=== PATIENT | female | born 1940 | race Caucasian/White ===

== ENCOUNTER 2016-12-26 13:06 | Inpatient (IN) ==
[2016-12-26] MEDS ORDERED: *HR* Morphine 2 MG/ML SYRINGE IVP ONE ×2 (13:14→15:54)
[2016-12-26] MEDS ORDERED: Ondansetron 4 MG/2 ML VIAL IVP ONE ×2 (13:14→15:54)
--- NOTE | 2016-12-26 13:16 | Emergency Department Note ---
Disposition Clinical Impression: Dislocation of right ankle joint Qualifiers: Encounter type: initial encounter Qualified Code(s): S93.04XA - Dislocation of right ankle joint, initial encounter Closed right fibular fracture Qualifiers: Encounter type: initial encounter Fibula location: shaft Fracture morphology: other fracture Qualified Code(s): S82.491A - Other fracture of shaft of right fibula, initial encounter for closed fracture Disposition: Admitted As Inpatient Referrals: Sander Bennett Jr, MD [Non-Partnered Physician] - Forms: ED Satisfaction Letter Extremity Problem HPI - General Chief complaint: ED Fall Stated complaint: Fall Time Seen by Provider: 12/26/16 13:13 Source: patient Mode of arrival: EMS Limitations: no limitations Nursing Notes Reviewed: Yes Vital Signs Reviewed: Yes - History of Present Illness Pt Subjective Complaint: extremity pain, extremity swelling Onset (ago): 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 Consistency: constant Injury Location: right, lower extremity Pain Scale: 10 Quality: dull Radiation: none Improves with: nothing Worsens with: palpation Associated symptoms: Reports: denies other symptoms Context: other (Patient was stepping off a horse and slipped and fell on her right ankle) - Related Data Home Medications Medication Instructions Recorded Confirmed Albuterol Sulfate [Albuterol 1 puff IH Q6HR PRN 06/13/15 10/17/16 Inhaler] Alprazolam [Xanax] 0.5 mg PO HS 06/13/15 10/17/16 Cholecalciferol (Vitamin D3) 2,000 unit PO DAILY 06/13/15 10/17/16 [Vitamin D3] Clopidogrel [Plavix] 75 mg PO DAILY 06/13/15 10/17/16 Dexlansoprazole [Dexilant] 60 mg PO DAILY 06/13/15 10/17/16 Duloxetine [Cymbalta] 60 mg PO DAILY 06/13/15 10/17/16 Folic Acid 1 mg PO DAILY 06/13/15 10/17/16 Furosemide [Lasix] 80 mg PO DAILY 06/13/15 10/17/16 Magnesium Oxide [Mag-Ox] 400 mg PO DAILY 06/13/15 10/17/16 Montelukast [Singulair] 10 mg PO HS 06/13/15 10/17/16 Multivitamin with Minerals 1 cap PO DAILY 06/13/15 10/17/16 [Myvitalife] Potassium Chloride [Klor-Con 40 meq PO TID 06/13/15 10/17/16 Sprinkle] PredniSONE 10 mg PO DAILY 06/13/15 10/17/16 TraMADol [Ultram] 50 mg PO DAILY 06/13/15 10/17/16 TraZODone 100 mg PO HS 06/13/15 10/17/16 Ipratropium/Albuterol Neb [Duoneb] 3 ml IH Q6HR 08/15/15 10/17/16 Previous Rx's Medication Instructions Recorded Fluconazole [Diflucan] 150 mg PO ONCE #2 tab 11/28/16 Magic Mouthwash 5 ml PO Q4H PRN #240 ml 11/28/16 Nystatin [Nystatin Suspension] 1 ml PO QID #120 ml 11/28/16 Allergies Allergy/AdvReac Type Severity Reaction Status Date / Time atorvastatin [From Lipitor] Allergy Hives Verified 10/14/15 15:38 cephalexin Allergy Hives Verified 10/14/15 15:38 hydrocodone Allergy Hives Verified 10/14/15 15:38 Penicillins [PCN] Allergy Hives Verified 10/14/15 15:38 ropinirole [From Requip] Allergy Unresponsiv Verified 10/14/15 15:38 e All systems ED: reviewed and negative except as stated. Constitutional: Denies: fever, chills Respiratory: Denies: cough Past Medical History - Past Medical History Source: patient, nursing notes reviewed Medical history: Reports: arthritis, asthma, COPD, GERD, hypertension, renal disease, TIA Surgical history: Reports: appendectomy, cholecystectomy, hysterectomy, knee replacement, sinus surgery, other Psychiatric history: Reports: no psych history - Social History Smoking Status: Never smoker Smokeless Tobacco Status: No Alcohol use: Reports: none Drug use: Reports: none Physical Exam - General Limitations: no limitations General appearance: alert, in no apparent distress - Head Head exam: atraumatic, normocephalic, normal inspection - Eye Eye exam: Present: normal appearance, PERRL, EOMI - ENT ENT exam: normal exam, normal oropharynx, mucous membranes moist - Neck Neck exam: Present: normal inspection, full ROM, trachea midline - Chest Chest inspection: Present: normal inspection, symmetric chest wall rise - Respiratory Respiratory exam: Present: normal lung sounds bilaterally - Abdominal Exam Abdominal exam: Present: soft, Non-Tender. Absent: tenderness, distention, guarding, rebound, rigidity - Expanded Lower Extremity Exam Ankle exam: Present: tenderness, swelling, dislocation - Neurological Exam Neurological exam: Present: alert, oriented X3 - Psychiatric Psychiatric exam: Present: normal affect, normal mood - Skin Skin exam: Present: warm, dry, intact, normal color Course Vital Signs Temperature 97.6 F 12/26/16 13:10 Pulse Rate 68 12/26/16 13:10 Respiratory Rate 16 12/26/16 13:10 Blood Pressure 155/82 12/26/16 13:10 O2 Sat by Pulse Oximetry 95 12/26/16 13:10 Temperature 97.6 F 12/26/16 13:10 Pulse Rate 67 12/26/16 14:17 Respiratory Rate 16 12/26/16 14:17 Blood Pressure 154/80 12/26/16 14:17 O2 Sat by Pulse Oximetry 100 12/26/16 14:17 Oxygen Delivery Oxygen Delivery [1400] Nasal Cannula Oxygen Delivery Room Air
[2016-12-26] MEDS ORDERED: 0.9 % Sodium Chloride 1,000 ML IVC ONE (13:38)
[2016-12-26] MEDS ORDERED: *HR* Etomidate 20 MG/10 ML AMPUL IVP ONE (13:39)
[2016-12-26] MEDS ORDERED: Albuterol 2.5 MG/3 ML NEBULIZER ONE (14:15)
[2016-12-26] MEDS ORDERED: Albuterol 2.5 MG/3 ML NEBULIZER IH ONE (14:16)
--- NOTE | 2016-12-26 14:22 | Emergency Department Note ---
Disposition Clinical Impression: Dislocation of right ankle joint Qualifiers: Encounter type: initial encounter Qualified Code(s): S93.04XA - Dislocation of right ankle joint, initial encounter Closed right fibular fracture Qualifiers: Encounter type: initial encounter Fibula location: shaft Fracture morphology: other fracture Qualified Code(s): S82.491A - Other fracture of shaft of right fibula, initial encounter for closed fracture Disposition: Still a Patient Referrals: Sander Bennett Jr, MD [Primary Care Provider] - Forms: ED Satisfaction Letter General Adult HPI - General Chief complaint: ED Fall Stated complaint: Fall Time Seen by Provider: 12/26/16 13:13 Source: patient Mode of arrival: EMS Limitations: no limitations Nursing Notes Reviewed: Yes Vital Signs Reviewed: Yes - History of Present Illness HPI Narrative: This note serves as a procedure note for the patient's right ankle fracture reduction and splint. Please refer to Dr. Goode' note for full visit and evaluation. Pain Scale: 10 - Related Data Home Medications Medication Instructions Recorded Confirmed Albuterol Sulfate [Albuterol 1 puff IH Q4HR PRN 06/13/15 10/17/16 Inhaler] Alprazolam [Xanax] 0.5 mg PO HS 06/13/15 10/17/16 Cholecalciferol (Vitamin D3) 2,000 unit PO DAILY 06/13/15 10/17/16 [Vitamin D3] Clopidogrel [Plavix] 75 mg PO DAILY 06/13/15 10/17/16 Dexlansoprazole [Dexilant] 60 mg PO DAILY 06/13/15 10/17/16 Duloxetine [Cymbalta] 60 mg PO DAILY 06/13/15 10/17/16 Folic Acid 1 mg PO DAILY 06/13/15 10/17/16 Furosemide [Lasix] 80 mg PO DAILY 06/13/15 10/17/16 Magnesium Oxide [Mag-Ox] 400 mg PO DAILY 06/13/15 10/17/16 Montelukast [Singulair] 10 mg PO HS 06/13/15 10/17/16 Multivitamin with Minerals 1 cap PO DAILY 06/13/15 10/17/16 [Myvitalife] Potassium Chloride [Klor-Con 40 meq PO TID 06/13/15 10/17/16 Sprinkle] PredniSONE 10 mg PO DAILY 06/13/15 10/17/16 TraMADol [Ultram] 50 mg PO DAILY 06/13/15 10/17/16 TraZODone 100 mg PO HS 06/13/15 10/17/16 Ipratropium/Albuterol Neb [Duoneb] 3 ml IH Q6HR 08/15/15 10/17/16 Previous Rx's Medication Instructions Recorded Fluconazole [Diflucan] 150 mg PO ONCE #2 tab 11/28/16 Magic Mouthwash 5 ml PO Q4H PRN #240 ml 11/28/16 Nystatin [Nystatin Suspension] 1 ml PO QID #120 ml 11/28/16 Allergies Allergy/AdvReac Type Severity Reaction Status Date / Time atorvastatin [From Lipitor] Allergy Hives Verified 10/14/15 15:38 cephalexin Allergy Hives Verified 10/14/15 15:38 hydrocodone Allergy Hives Verified 10/14/15 15:38 Penicillins [PCN] Allergy Hives Verified 10/14/15 15:38 ropinirole [From Requip] Allergy Unresponsiv Verified 10/14/15 15:38 e Constitutional: Denies: fever, chills Respiratory: Denies: cough Past Medical History - Past Medical History Medical history: Reports: arthritis, asthma, COPD, GERD, hypertension, renal disease, TIA Surgical history: Reports: appendectomy, cholecystectomy, hysterectomy, knee replacement, sinus surgery, other Psychiatric history: Reports: no psych history - Social History Smoking Status: Never smoker Smokeless Tobacco Status: No Alcohol use: Reports: none Drug use: Reports: none Physical Exam - General Limitations: no limitations General appearance: alert, in no apparent distress Course Vital Signs Temperature 97.6 F 12/26/16 13:10 Pulse Rate 68 12/26/16 13:10 Respiratory Rate 16 12/26/16 13:10 Blood Pressure 155/82 12/26/16 13:10 O2 Sat by Pulse Oximetry 95 12/26/16 13:10 Temperature 97.6 F 12/26/16 13:10 Pulse Rate 67 12/26/16 14:17 Respiratory Rate 16 12/26/16 14:17 Blood Pressure 154/80 12/26/16 14:17 O2 Sat by Pulse Oximetry 100 12/26/16 14:17 Oxygen Delivery Oxygen Delivery [] Nasal Cannula Oxygen Delivery Room Air Procedures - Orthopedic Fracture Reduction Fracture #1 Consent Obtained: written consent Time Out Performed: Yes Side: right Fracture Reduction Location: fibula ASA Classification: CLASS II-Mild systemic disease Analgesia: procedural sedation (Etomidate) Technique: direct manipulation, traction/counter-traction Post Reduction X-rays Demonstrate: anatomical reduction Post-reduction neuro exam: intact Post-reduction vascular exam: intact Splint Applied: Yes Patient Tolerated Procedure: well, no complications - Orthopedic Splinting/Casting Injury #1 Side: right Lower Extremity Injury Location: ankle Lower Extremity Immobilizer: posterior splint, stirrup splint, Gerson wrap Other Orthopedic Equipment: other (Patient admitted to medical floor.) Attestation Statement - Attestation Attestation: I personally observed Dr. Hollis perform the reduction of the right ankle. Also directly supervised the splint placement. Patient was seen and evaluated by Dr. Goode who also provided the sedation. Patient admitted for operative repair.
[2016-12-26 15:12] LABS: Calcium 8.8 mg/dL (8.6-10.8); Potassium 3.9 mEq/L (3.5-4.5)
[2016-12-26 15:27] LABS: Basophils % 0.3 %; Eosinophils # 0.2 K/mcL (0.0-0.6); Eosinophils % 1.6 %; Hematocrit 39.9 % (35.3-44.9); Hemoglobin 12.6 g/dL (11.5-15.4); Immature Granulocytes % 0.5 % (0-4); Lymphocytes # 1.2 K/mcL (0.6-4.6); Lymphocytes % 11.6 %; Mean Corpuscular HGB Conc 31.6 g/dL (31.6-35.5); Mean Corpuscular Hemoglobin 26.8 pg (28.0-33.3); Mean Corpuscular Volume 84.7 fL (83.0-100.0); Mean Platelet Volume 9.5 fL (9.4-12.4); Monocytes # 0.6 K/mcL (0.0-1.3); Monocytes % 5.3 %; Neutrophils # 8.5 K/mcL (1.6-8.9); Platelet Count 197 K/mcL (140-400); Red Blood Count 4.71 M/mcL (3.82-4.97); Red Cell Distribution Width 14.6 % (11.5-14.5); Segmented Neutrophils % 80.7 %
[2016-12-26 15:44] LABS: Prothrombin Time 10.5 Seconds (9.4-12.1)
[2016-12-26 15:46] LABS: Activated Partial Thrombo Time 28.4 Seconds (26.0-36.0)
[2016-12-26] MEDS ORDERED: Naloxone 0.4 MG/ML INJ IVP PRN (16:32)
[2016-12-26] MEDS ORDERED: Ondansetron 4 MG/2 ML VIAL IVP PRN (16:32)
--- NOTE | 2016-12-26 17:15 | Internal Med History&Physical ---
Date of Encounter: 12/26/16 Time of Encounter: 16:30 Assessment and Plan (1) Closed right fibular fracture Current visit: Yes Status: Acute 1 patient had a fall from standing x-ray revealed closed right fibular fracture. Orthopedics consulted 2 continue with pain medications-morphine 3 consult PT/OT 4 consult social economist for ECF placement 5 heparin DVT prophylaxis 6 Her functional capacity is poor. She has multiple clinical predictors including CKD, COPD. She will be moderate risk for perioperative complications because of poor functional capacity and clinical predictors. Will check 12 lead electrocardiogram. Qualifiers: Encounter type: initial encounter Fibula location: shaft Fracture morphology: other fracture Qualified Code(s): S82.491A - Other fracture of shaft of right fibula, initial encounter for closed fracture (2) Dislocation of right ankle joint Current visit: Yes Status: Acute 1 this was reduced in the ER-continue with splint 2 continue with pain medications Qualifiers: Encounter type: initial encounter Qualified Code(s): S93.04XA - Dislocation of right ankle joint, initial encounter (3) CKD (chronic kidney disease), stage III Current visit: Yes Status: Acute 1 presently creatinine stable we will continue to monitor creatinine 2 avoid nephrotoxins 3 monitor intake and output daily weights (4) COPD (chronic obstructive pulmonary disease) Current visit: Yes Status: Chronic 1 oxygen as needed titrating to maintain SPO2 greater than 92% 2 bronchodilators 3 continue with prednisone 5 mg which is maintenance dose Qualifiers: COPD type: unspecified COPD Qualified Code(s): J44.9 - Chronic obstructive pulmonary disease, unspecified (5) DVT prophylaxis Current visit: No Status: Acute 1 heparin subcutaneous Internal Medicine - H&P: HPI Chief complaint: fall Admitted From: Emergency Dept Plans for Post Hospital Care: Home History of present illness: Ms. Miller is a 76 year old female past medical history of COPD stage III TIA COPD 2 L nasal cannula oxygen obstructive sleep apnea. According to patient she was attempting to get off a horse when she stepped down and hold her right ankle. Her ankle was deformed and painful presented to the ER. X-ray right ankle revealed close right femur fracture as well as dislocation of right ankle joint. Patient was given conscious sedation in the ER right ankle was reduced. Laboratory workup was unremarkable. Orthopedics was consulted. Patient was admitted for further evaluation. Presently the patient is sleepy but arouses to verbal stimuli and answers questions appropriately. Family is at bedside. Patient states that she lives alone with her she has had frequent falls in the past recently fracturing her patella. She denies any past cardiac history she has a history of CVA on Plavix and statin. She has no neurological deficits cranial nerves II through XII are intact she follows commands. Heart sounds S1 and S2 with no rubs, clicks murmurs noted lungs sounds clear throughout all lung mederos. She is hemodynamically stable this time. Past Med Surg Social Fam HX - Past Medical History Medical history: arthritis, asthma, COPD, GERD, hypertension, renal disease, TIA Psychiatric history: no psych history - Past Surgical History Surgical History: appendectomy, cholecystectomy, hysterectomy, knee replacement , sinus surgery, other - Social History Smoking Status: Never smoker Smokeless Tobacco Status: No Alcohol use: none Drug use: none - Family History Mother Adopted: No Family Member Ethnicity: Non- Living Status: Hx Family Cardiac Disorders: Yes Internal Medicine - H&P: Meds Albuterol Sulfate [Albuterol Inhaler] 2 puff IH Q4HR PRN 06/13/15 [History] Alprazolam [Xanax] 2 mg PO HS 06/13/15 [History] Cholecalciferol (Vitamin D3) [Vitamin D3] 2,000 unit PO DAILY 06/13/15 [History] Clopidogrel [Plavix] 75 mg PO DAILY 06/13/15 [History] Dexlansoprazole [Dexilant] 60 mg PO DAILY 06/13/15 [History] Duloxetine [Cymbalta] 60 mg PO DAILY 06/13/15 [History] Folic Acid 1 mg PO DAILY 06/13/15 [History] Furosemide [Lasix] 80 mg PO DAILY 06/13/15 [History] Magnesium Oxide [Mag-Ox] 400 mg PO BID 06/13/15 [History] Potassium Chloride [Klor-Con Sprinkle] 40 meq PO TID 06/13/15 [History] TraMADol [Ultram] 50 mg PO Q6H PRN 06/13/15 [History] TraZODone 50 mg PO HS 06/13/15 [History] Diclofenac Sodium [Voltaren] 1 appl TP QID PRN 12/26/16 [History] Mometasone Furoate [Nasonex] 2 spray NS DAILY 12/26/16 [History] Mometasone/Formoterol [Dulera 200 Mcg/5 Mcg Inhaler] 2 puff IH BID 12/26/16 [ History] Oxygen 2 l NS AD 12/26/16 [History] Tiotropium [Spiriva] 18 mcg IH 0700 12/26/16 [History] predniSONE [PredniSONE] 5 mg PO DAILY 12/26/16 [History] Allergies atorvastatin [From Lipitor] Allergy (Verified 10/14/15 15:38) Hives cephalexin Allergy (Verified 10/14/15 15:38) Hives hydrocodone Allergy (Verified 10/14/15 15:38) Hives Penicillins [PCN] Allergy (Verified 10/14/15 15:38) Hives ropinirole [From Requip] Allergy (Verified 10/14/15 15:38) Unresponsive All Systems PM: A 10-system review of systems was performed and is negative for pertinent findings except as documented above in the HPI. - Constitutional Constitutional: no chills, no fever(s), no night sweats - EENT Eyes: no change in vision, no discharge, no pain, no photophobia Nose, mouth and throat: no dysphagia, no nasal discharge, no neck pain, no sore throat - Cardiovascular Cardiovascular ROS IM: no chest pain, no diaphoresis, no dyspnea, no lightheadedness, no palpitations, no syncope - Respiratory Respiratory: no cough, no dyspnea, no wheezing, no excessive phlegm production - Gastrointestinal Gastrointestinal: no abdominal pain, no diarrhea, no hematemesis, no hematochezia, no melena, no nausea, no vomiting - Genitourinary Genitourinary: no change in urinary stream, no dysuria, no flank pain, no hematuria - Musculoskeletal Musculoskeletal ROS IM: no numbness, no tingling - Integumentary Integumentary IM: no rash, no unusual bruising - Neurological Neurological ROS: frequent falls, no confusion, no convulsions, no focal weakness, no numbness, no tingling, no tremor(s) - Hematologic/Lymphatic Hematologic/Lymphatic: no easy bruising - Constitutional Vitals: Temp Pulse Resp BP Pulse Ox 97.7 F 62 14 113/71 98 12/26/16 16:42 12/26/16 16:42 12/26/16 16:42 12/26/16 16:42 12/26/16 16:43 General appearance: Present: A&O X 3, answers questions appropriately - Head Head exam: Present: atraumatic, normocephalic - Eye Eye exam: Present: PERRL, conjuntiva pink, sclera anicteric Pupils: Present: PERRL - Neck Neck exam general surgery: Present: supple, trachea midline. Absent: lymphadenopathy - Respiratory Respiratory exam: Present: CTAB. Absent: accessory muscle use, rales, rhonchi, wheezes - Cardiovascular Cardiovascular exam: Present: RRR, +S1, +S2. Absent: diastolic murmur, gallop, rubs, systolic murmur - GI/Abdominal GI/Abdominal exam: Present: normal bowel sounds, soft, no peritoneal signs. Absent: distended, tenderness - Extremities Exam Extremities exam: Present: normal capillary refill, warm, radial pulses palpable and symetrical. Absent: calf tenderness, cyanotic, pedal edema Additional comments: Right leg with splint intact. Right foot warm pink with brisk capillary refill - Neurological Exam Neurological exam: Present: CN II-XII intact, oriented X3, no focal deficits. Absent: pronater drift, facial droop, speech deficit - Skin Skin exam: Present: dry, intact Internal Med - H&P Results - Labs CBC & Chem 7: 12/26/16 15:06 12/26/16 14:54
[2016-12-26] MEDS ORDERED: *HR* Heparin 5,000 UNIT/ML VIAL SQ SCH (18:00)
--- NOTE | 2016-12-26 18:45 | Event Note ---
Date of Encounter: 12/26/16 Time of Encounter: 18:42 Patient seen and examined with nurse practitioner. Mechanical fall from the horse. Right ankle fracture dislocation. Orthopedic to see the patient. She denies any prior cardiac history. According to family she had an angiogram 5 years ago showed no closer disease. She was on Plavix for prior stroke. Continue Plavix. She denies any chest pain with exertion. Her functional capacity is poor. She has multiple clinical predictors including CKD, diabetic. She will be moderate risk for perioperative cardiac complications because of poor functional capacity and her clinical predictors. Will check 12 lead electrocardiogram.
[2016-12-26] MEDS: Budesonide/Formoterol 160/4.5 MDI IH SCH (19:56)
[2016-12-26] MEDS: traZODone 50 MG TABLET PO SCH (20:20)
[2016-12-26] MEDS: Magnesium Oxide 400 MG TABLET PO SCH (20:21)
[2016-12-26] MEDS: traMADol 50 MG TABLET PO PRN (20:22)
[2016-12-27] MEDS: *HR* Morphine 2 MG/ML SYRINGE IVP PRN ×5 (00:50→20:57)
[2016-12-27] MEDS: traMADol 50 MG TABLET PO PRN (04:34)
[2016-12-27 05:43] LABS: Basophils % 0.4 %; Eosinophils # 0.2 K/mcL (0.0-0.6); Eosinophils % 2.7 %; Hematocrit 37.3 % (35.3-44.9); Hemoglobin 11.5 g/dL (11.5-15.4); Immature Granulocytes % 0.4 % (0-4); Lymphocytes # 1.1 K/mcL (0.6-4.6); Mean Corpuscular HGB Conc 30.8 g/dL (31.6-35.5); Mean Corpuscular Hemoglobin 26.9 pg (28.0-33.3); Mean Corpuscular Volume 87.1 fL (83.0-100.0); Mean Platelet Volume 9.6 fL (9.4-12.4); Monocytes # 0.6 K/mcL (0.0-1.3); Monocytes % 11.1 %; Neutrophils # 3.7 K/mcL (1.6-8.9); Platelet Count 168 K/mcL (140-400); Red Blood Count 4.28 M/mcL (3.82-4.97); Red Cell Distribution Width 15.1 % (11.5-14.5); Segmented Neutrophils % 66.4 %
[2016-12-27 06:53] LABS: Calcium 8.6 mg/dL (8.6-10.8); Potassium 4.2 mEq/L (3.5-4.5)
[2016-12-27] MEDS: Tiotropium 18 MCG inhalation IH SCH (07:55)
[2016-12-27] MEDS: Budesonide/Formoterol 160/4.5 MDI IH SCH ×2 (07:56→20:29)
[2016-12-27] MEDS: Magnesium Oxide 400 MG TABLET PO SCH ×2 (08:47→20:48)
[2016-12-27] MEDS: predniSONE 5 MG TABLET PO SCH (08:47)
[2016-12-27] MEDS: Furosemide 40 MG TABLET PO SCH (08:48)
[2016-12-27] MEDS: Folic Acid 1 MG TABLET PO SCH (08:48)
[2016-12-27] MEDS: Cholecalciferol (D-3) 1,000 UNIT TABLET PO SCH (08:48)
[2016-12-27] MEDS: (Dexlansoprazole [Dexilant] 60 MG) PO SCH (08:48)
[2016-12-27] MEDS ORDERED: Furosemide 40 MG TABLET PO SCH (09:00)
[2016-12-27] MEDS ORDERED: *HR* HYDROmorphone (PF) 1 MG/ML SYRINGE IVP ONE (09:02)
[2016-12-27] MEDS ORDERED: Albuterol 2.5 MG/3 ML NEBULIZER IH PRN (09:42)
--- NOTE | 2016-12-27 14:09 | Electrocardiograph Report ---
[address] [address] Test Date: 2016-12-26 Pat Name: Beronica Miller Department: 114 Room: [facility] Gender: F Bookkeeping Manager: JJG : 1940 Requested By: Mikki Maciel Order Number: [id number] Reading MD: Slava Plaza MD Measurements Intervals [place] Rate: 65 P: 51 VT: 151 QRS: -33 QRSD: 90 T: 42 QT: 427 QTc: 438 Interpretive Statements SINUS RHYTHM BORDERLINE LEFT AXIS DEVIATION LOW QRS VOLTAGE IN PRECORDIAL LEADS POOR R-WAVE RPOGRESSION Electronically Signed On 12-27-2016 14:07:27 EDT by Slava Plaza MD
--- NOTE | 2016-12-27 15:52 | Internal Med Progress Note ---
Date of Encounter: 12/27/16 Time of Encounter: 15:48 - Assessment and plan (1) Closed right fibular fracture Current Visit: Yes Status: Acute Assessment and plan: patient had a fall , x-ray revealed closed right fibular fracture. discussed with DR. Stokes, plan to hold plavix for now, proceed with surgery after 3-4 days. consult PT/OT consult executive secretary social welfare for ECF placement heparin DVT prophylaxis Her functional capacity is poor. She has multiple clinical predictors including CKD, COPD. She will be moderate risk for perioperative complications because of poor functional capacity and clinical predictors. Will check 12 lead electrocardiogram. Qualifiers: Encounter type: initial encounter Fibula location: shaft Fracture morphology: other fracture Qualified Code(s): S82.491A - Other fracture of shaft of right fibula, initial encounter for closed fracture (2) CKD (chronic kidney disease), stage III Current Visit: Yes Status: Acute Assessment and plan: 1 presently creatinine stable we will continue to monitor creatinine 2 avoid nephrotoxins 3 monitor intake and output daily weights (3) COPD (chronic obstructive pulmonary disease) Current Visit: Yes Status: Chronic Assessment and plan: stable continue home inhalers. Qualifiers: COPD type: unspecified COPD Qualified Code(s): J44.9 - Chronic obstructive pulmonary disease, unspecified - Subjective Interval history: Patient seen at the bedside, reports mild pain at the right ankle. Denies any other complaints, no chest pain or shortness of breath. Admitted for closed right fibular fracture. - Constitutional Vitals: Temp Pulse Resp BP Pulse Ox 98.4 F 63 16 144/85 95 12/27/16 15:30 12/27/16 15:30 12/27/16 15:30 12/27/16 15:30 12/27/16 15:30 General appearance: Present: A&O X 3, answers questions appropriately Exam: - Head Head exam: Present: atraumatic, normocephalic - Eye Eye exam: Present: PERRL, conjuntiva pink, sclera anicteric Pupils: Present: PERRL - Neck Neck exam general surgery: Present: supple, trachea midline. Absent: lymphadenopathy - Respiratory Respiratory exam: Present: CTAB. Absent: accessory muscle use, rales, rhonchi, wheezes - Cardiovascular Cardiovascular exam: Present: RRR, +S1, +S2. Absent: diastolic murmur, gallop, rubs, systolic murmur - GI/Abdominal GI/Abdominal exam: Present: normal bowel sounds, soft, no peritoneal signs. Absent: distended, tenderness - Extremities Exam Extremities exam: Present: normal capillary refill, warm, radial pulses palpable and symetrical. Absent: calf tenderness, cyanotic, pedal edema Additional comments: Right leg with splint intact. Right foot warm pink with brisk capillary refill - Neurological Exam Neurological exam: Present: CN II-XII intact, oriented X3, no focal deficits. Absent: pronater drift, facial droop, speech deficit - Skin Skin exam: Present: dry, intact Internal Medicine: Result - Labs CBC & Chem 7: 12/27/16 05:21 12/27/16 05:21 Labs: Short CBC 12/27/16 Range/Units 05:21 WBC 5.6 (4.3-11.1) K/mcL Hgb 11.5 (11.5-15.4) g/dL Hct 37.3 (35.3-44.9) % Plt Count 168 (140-400) K/mcL Neutrophils # 3.7 (1.6-8.9) K/mcL BMP 12/27/16 05:21 Sodium 139 Potassium 4.2 Chloride 105 Carbon Dioxide 29 BUN 22 H Creatinine 1.36 H Glucose 107 H Calcium 8.6 - ABG Interpretation ABG results: PT/INR, D-dimer PT 10.5 Seconds (9.4-12.1) 12/26/16 15:06 Consult Discharge Plan - Plan Referrals: Sander Bennett Jr, MD [Primary Care Provider] -
[2016-12-27] MEDS: *HR* Heparin 5,000 UNIT/ML VIAL SQ SCH ×2 (16:03→20:48)
--- NOTE | 2016-12-27 17:01 | Podiatry Consult Note ---
Date of Encounter: 12/27/16 Time of Encounter: 07:01 Assessment and Plan (1) Closed right fibular fracture Current visit: Yes Status: Acute Patient was instructed that we will need to proceed with surgical intervention. The patient was agreeable. The surgery discussed was open reduction, internal fixation of the right ankle fracture. At this time the patient is on Plavix and we will have to discontinue Plavix for at least 1-2 days prior to the surgery. We will likely proceed with surgical intervention on Saturday. The patient was agreeable.Patient was informed of the risks and complications of surgery. These may include but are not limited to the following; nerve damage, numbness, tingling, RSD/CRPS, loss of motor function, loss of toe, loss of limb , loss of life, ischemia, wound healing issues, infection, scarring, keloid formation, continued pain, arthritis, non-union, mal-union, prominent hardware, displaced hardware, reaction to hardware, the need to remove hardware, bruising , continued limp, the need for future surgery, over correction, under correction , chronic swelling, the need for physical therapy, stiffness of joints, ulceration, slow healing, wound dehiscence, reaction to implant, reaction to sutures. The patient was informed of the possible conservative treatments available which may include but are not limited to the following: Orthotics, bracing, non -weight bearing, physical therapy, padding, taping, steroid injections, NSAIDS, casting. The patient was given the option to seek a second opinion. It was explained that surgery is an art and not an exact science therefore results cannot be guaranteed. All the patients questions and concerns were addressed. Patient agrees to have the surgery despite the possible risks and complications. Absolutely no guarantees were given or implied. Qualifiers: Encounter type: initial encounter Fibula location: shaft Fracture morphology: other fracture Qualified Code(s): S82.491A - Other fracture of shaft of right fibula, initial encounter for closed fracture History of Present Illness Chief complaint: ankle fracture HPI: Ms. Miller is a 76 year old female who recently fractured her ankle. Patient relates that she was getting off a horse and injured her ankle. Patient relates that it is still painful. Patient denies any other pedal complaints. Past Med Surg Social Fam HX - Past Medical History Medical history: arthritis, asthma, COPD, GERD, hypertension, renal disease, TIA Psychiatric history: no psych history - Past Surgical History Surgical History: appendectomy, cholecystectomy, hysterectomy, knee replacement , sinus surgery, other - Social History Smoking Status: Never smoker Smokeless Tobacco Status: No Alcohol use: none Drug use: none - Family History Mother Adopted: No Family Member Ethnicity: Non- Living Status: Hx Family Cardiac Disorders: Yes Medications and Allergies Albuterol Sulfate [Albuterol Inhaler] 2 puff IH Q4HR PRN 06/13/15 [History] Alprazolam [Xanax] 2 mg PO HS 06/13/15 [History] Cholecalciferol (Vitamin D3) [Vitamin D3] 2,000 unit PO DAILY 06/13/15 [History] Clopidogrel [Plavix] 75 mg PO DAILY 06/13/15 [History] Dexlansoprazole [Dexilant] 60 mg PO DAILY 06/13/15 [History] Duloxetine [Cymbalta] 60 mg PO DAILY 06/13/15 [History] Folic Acid 1 mg PO DAILY 06/13/15 [History] Furosemide [Lasix] 80 mg PO DAILY 06/13/15 [History] Magnesium Oxide [Mag-Ox] 400 mg PO BID 06/13/15 [History] Potassium Chloride [Klor-Con Sprinkle] 40 meq PO TID 06/13/15 [History] TraMADol [Ultram] 50 mg PO Q6H PRN 06/13/15 [History] TraZODone 50 mg PO HS 06/13/15 [History] Diclofenac Sodium [Voltaren] 1 appl TP QID PRN 12/26/16 [History] Mometasone Furoate [Nasonex] 2 spray NS DAILY 12/26/16 [History] Mometasone/Formoterol [Dulera 200 Mcg/5 Mcg Inhaler] 2 puff IH BID 12/26/16 [ History] Oxygen 2 l NS AD 12/26/16 [History] Tiotropium [Spiriva] 18 mcg IH 0700 12/26/16 [History] predniSONE [PredniSONE] 5 mg PO DAILY 12/26/16 [History] Allergies atorvastatin [From Lipitor] Allergy (Verified 10/14/15 15:38) Hives cephalexin Allergy (Verified 10/14/15 15:38) Hives hydrocodone Allergy (Verified 10/14/15 15:38) Hives Penicillins [PCN] Allergy (Verified 10/14/15 15:38) Hives ropinirole [From Requip] Allergy (Verified 10/14/15 15:38) Unresponsive All Systems Reviewed: A 10-system review of systems was performed and is negative for pertinent findings except as documented above in the HPI. Physical Exam - Constitutional Vitals: Temp Pulse Resp BP Pulse Ox 98.4 F 63 16 144/85 95 12/27/16 15:30 12/27/16 15:30 12/27/16 15:30 12/27/16 15:30 12/27/16 15:30 Exam: The splint is intact but upon inspection at the toes there appears to be mild swelling. Capillary fill time intact to digits 1 through 5 bilaterally. Sensation grossly intact to level of the digits. Radiographic exam demonstrates a fracture of the fibula and medial malleolus. Patient is able to dorsiflex and plantarflex digits. Results - Labs Result Diagrams: 12/27/16 05:21 12/27/16 05:21 Labs: Abnormal lab results MCH 26.9 pg (28.0-33.3) L 12/27/16 05:21 MCHC 30.8 g/dL (31.6-35.5) L 12/27/16 05:21 RDW 15.1 % (11.5-14.5) H 12/27/16 05:21 BUN 22 mg/dL (7-20) H 12/27/16 05:21 Creatinine 1.36 mg/dL (0.57-1.11) H 12/27/16 05:21 Est GFR ( Amer) 46 (> 60) L 12/27/16 05:21 Est GFR (Non-Af Amer) 38 (> 60) L 12/27/16 05:21 Glucose 107 mg/dL (70-99) H 12/27/16 05:21 H & H 12/27/16 Range/Units 05:21 Hgb 11.5 (11.5-15.4) g/dL Hct 37.3 (35.3-44.9) % All other labs normal. Consult Discharge Plan - Plan Referrals: Sander Bennett Jr, MD [Primary Care Provider] -
[2016-12-27] MEDS: ALPRAZolam 1 MG TABLET PO PRN (20:48)
[2016-12-27] MEDS: traZODone 50 MG TABLET PO SCH (20:48)
[2016-12-28] MEDS: *HR* Morphine 2 MG/ML SYRINGE IVP PRN ×4 (03:21→18:50)
[2016-12-28] MEDS: traMADol 50 MG TABLET PO PRN ×3 (05:40→22:07)
[2016-12-28] MEDS: *HR* Heparin 5,000 UNIT/ML VIAL SQ SCH ×3 (05:41→22:08)
[2016-12-28] MEDS: Furosemide 40 MG TABLET PO SCH (07:46)
[2016-12-28] MEDS: predniSONE 5 MG TABLET PO SCH (07:46)
[2016-12-28] MEDS: Magnesium Oxide 400 MG TABLET PO SCH ×2 (07:46→22:08)
[2016-12-28] MEDS: (Dexlansoprazole [Dexilant] 60 MG) PO SCH (07:46)
[2016-12-28] MEDS: Folic Acid 1 MG TABLET PO SCH (07:46)
[2016-12-28] MEDS: Cholecalciferol (D-3) 1,000 UNIT TABLET PO SCH (07:46)
--- NOTE | 2016-12-28 10:31 | Internal Med Progress Note ---
Date of Encounter: 12/28/16 Time of Encounter: 10:30 - Assessment and plan (1) Dislocation of right ankle joint Current Visit: Yes Status: Acute Assessment and plan: Secondary to fracture Qualifiers: Encounter type: initial encounter Qualified Code(s): S93.04XA - Dislocation of right ankle joint, initial encounter (2) Closed right fibular fracture Current Visit: Yes Status: Acute Assessment and plan: s/p mechanical fall , x-ray revealed closed right fibular fracture. Awaiting surgery, possibly 12/30. Continue heparin DVT prophylaxis Her functional capacity is poor. She has multiple clinical predictors including CKD, steroid -dependent COPD. She will be moderate risk for perioperative complications because of poor functional capacity and clinical predictors. EKG noted, LAD, no ST segment changes PT/OT eval. SW for placement post-op Qualifiers: Encounter type: initial encounter Fibula location: shaft Fracture morphology: other fracture Qualified Code(s): S82.491A - Other fracture of shaft of right fibula, initial encounter for closed fracture (3) CKD (chronic kidney disease), stage III Current Visit: Yes Status: Chronic Assessment and plan: creatinine stable we will continue to monitor creatinine, avoid nephrotoxins, monitor intake and output daily weights (4) COPD (chronic obstructive pulmonary disease) Current Visit: Yes Status: Chronic Assessment and plan: stable Steroid dependent No clinical signs of exacerbation continue home inhalers and prednisone. Qualifiers: COPD type: unspecified COPD Qualified Code(s): J44.9 - Chronic obstructive pulmonary disease, unspecified - Subjective Interval history: Seen and evaluated at bedside Complained of mild pain at right ankle Denies any other complains being managed for Closed R fibula fracture She has a PMH of COPD, CKD III, - Constitutional Vitals: Temp Pulse Resp BP Pulse Ox 98.0 F 64 20 158/81 98 12/28/16 07:01 12/28/16 07:01 12/28/16 07:01 12/28/16 07:01 12/28/16 07:01 General appearance: Present: A&O X 3, pleasant, no acute distress, answers questions appropriately - Head Head exam: Present: atraumatic, normocephalic - Eye Eye exam: Present: PERRL, conjuntiva pink, sclera anicteric Pupils: Present: PERRL - Neck Neck exam general surgery: Present: supple, trachea midline. Absent: lymphadenopathy - Respiratory Respiratory exam: Present: CTAB. Absent: accessory muscle use, rales, rhonchi, wheezes - Cardiovascular Cardiovascular exam: Present: RRR, +S1, +S2, systolic murmur. Absent: diastolic murmur, gallop, rubs - GI/Abdominal GI/Abdominal exam: Present: normal bowel sounds, soft, no peritoneal signs. Absent: distended, tenderness - Extremities Exam Extremities exam: Present: warm, radial pulses palpable and symetrical. Absent : calf tenderness, cyanotic, pedal edema Additional comments: RLE in dressing and splint - Neurological Exam Neurological exam: Present: alert, CN II-XII intact, oriented X3, no focal deficits. Absent: pronater drift, facial droop, speech deficit - Skin Skin exam: Present: dry, intact Internal Medicine: Result - Labs CBC & Chem 7: 12/27/16 05:21 12/27/16 05:21 - ABG Interpretation ABG results: PT/INR, D-dimer PT 10.5 Seconds (9.4-12.1) 12/26/16 15:06 Consult Discharge Plan - Plan Referrals: Sander Bennett Jr, MD [Primary Care Provider] -
[2016-12-28] MEDS: Tiotropium 18 MCG inhalation IH SCH (11:04)
[2016-12-28] MEDS: Budesonide/Formoterol 160/4.5 MDI IH SCH ×2 (11:04→19:43)
[2016-12-28] MEDS: ALPRAZolam 1 MG TABLET PO PRN (22:07)
[2016-12-28] MEDS: traZODone 50 MG TABLET PO SCH (22:07)
[2016-12-29] MEDS: *HR* Morphine 2 MG/ML SYRINGE IVP PRN ×5 (02:17→22:42)
[2016-12-29] MEDS: *HR* Heparin 5,000 UNIT/ML VIAL SQ SCH ×3 (04:07→22:42)
[2016-12-29] MEDS: traMADol 50 MG TABLET PO PRN ×3 (04:07→20:23)
[2016-12-29 05:06] LABS: Basophils % 0.2 %; Eosinophils # 0.2 K/mcL (0.0-0.6); Eosinophils % 2.3 %; Hematocrit 36.7 % (35.3-44.9); Hemoglobin 11.5 g/dL (11.5-15.4); Immature Granulocytes % 0.4 % (0-4); Lymphocytes # 1.6 K/mcL (0.6-4.6); Lymphocytes % 19.3 %; Mean Corpuscular HGB Conc 31.3 g/dL (31.6-35.5); Mean Corpuscular Hemoglobin 26.3 pg (28.0-33.3); Mean Platelet Volume 9.2 fL (9.4-12.4); Monocytes # 0.8 K/mcL (0.0-1.3); Neutrophils # 5.7 K/mcL (1.6-8.9); Platelet Count 188 K/mcL (140-400); Red Blood Count 4.37 M/mcL (3.82-4.97); Red Cell Distribution Width 14.4 % (11.5-14.5); Segmented Neutrophils % 67.8 %
[2016-12-29 05:17] LABS: Calcium 8.7 mg/dL (8.6-10.8); Potassium 3.9 mEq/L (3.5-4.5)
[2016-12-29] MEDS: Budesonide/Formoterol 160/4.5 MDI IH SCH ×2 (07:57→21:24)
[2016-12-29] MEDS: Tiotropium 18 MCG inhalation IH SCH (07:58)
[2016-12-29] MEDS: Magnesium Oxide 400 MG TABLET PO SCH ×2 (08:04→20:24)
[2016-12-29] MEDS: Folic Acid 1 MG TABLET PO SCH (08:04)
[2016-12-29] MEDS: predniSONE 5 MG TABLET PO SCH (08:05)
[2016-12-29] MEDS: Cholecalciferol (D-3) 1,000 UNIT TABLET PO SCH (08:05)
[2016-12-29] MEDS: Furosemide 40 MG TABLET PO SCH (08:05)
[2016-12-29] MEDS: (Dexlansoprazole [Dexilant] 60 MG) PO SCH (10:08)
--- NOTE | 2016-12-29 12:43 | Internal Med Progress Note ---
Date of Encounter: 12/29/16 Time of Encounter: 12:40 - Assessment and plan (1) Dislocation of right ankle joint Current Visit: Yes Status: Acute Assessment and plan: Secondary to fracture Qualifiers: Encounter type: initial encounter Qualified Code(s): S93.04XA - Dislocation of right ankle joint, initial encounter (2) Closed right fibular fracture Current Visit: Yes Status: Acute Assessment and plan: s/p mechanical fall , x-ray revealed closed right fibular fracture. Awaiting surgery, possibly 12/30. Continue heparin DVT prophylaxis Her functional capacity is poor. She has multiple clinical predictors including CKD, steroid -dependent COPD. She will be moderate risk for perioperative complications because of poor functional capacity and clinical predictors. EKG noted, LAD, no ST segment changes PT/OT eval. SW for placement post-op Qualifiers: Encounter type: initial encounter Fibula location: shaft Fracture morphology: other fracture Qualified Code(s): S82.491A - Other fracture of shaft of right fibula, initial encounter for closed fracture (3) CKD (chronic kidney disease), stage III Current Visit: Yes Status: Chronic Assessment and plan: creatinine stable we will continue to monitor creatinine, avoid nephrotoxins, monitor intake and output daily weights (4) COPD (chronic obstructive pulmonary disease) Current Visit: Yes Status: Chronic Assessment and plan: advanced COPD, Steroid dependent Wheezing this mrn Per patient, she gets nebs 3 times daily at home continue prednisone. Hold spiriva Qualifiers: COPD type: unspecified COPD Qualified Code(s): J44.9 - Chronic obstructive pulmonary disease, unspecified - Subjective Interval history: Seen and evaluated at bedside Complained of mild pain at right ankle Also complained of constipation being managed for Closed R fibular fracture She has a PMH of COPD, CKD III, Will add senna-plus to regimen - Constitutional Vitals: Temp Pulse Resp BP Pulse Ox 97.8 F 72 16 133/76 94 12/29/16 11:32 12/29/16 11:32 12/29/16 11:32 12/29/16 11:32 12/29/16 11:32 General appearance: Present: A&O X 3, pleasant, no acute distress, answers questions appropriately - Head Head exam: Present: atraumatic, normocephalic - Eye Eye exam: Present: PERRL, conjuntiva pink, sclera anicteric Pupils: Present: PERRL - Neck Neck exam general surgery: Present: supple, trachea midline. Absent: lymphadenopathy - Respiratory Respiratory exam: Present: wheezes (Diffuse bilateral expiratory wheezing) - Cardiovascular Cardiovascular exam: Present: RRR, +S1, +S2. Absent: diastolic murmur, gallop, rubs, systolic murmur - GI/Abdominal GI/Abdominal exam: Present: normal bowel sounds, soft, no peritoneal signs. Absent: distended, tenderness - Extremities Exam Extremities exam: Present: warm, radial pulses palpable and symetrical. Absent : calf tenderness, cyanotic, pedal edema Additional comments: RLE in dressing and splint - Neurological Exam Neurological exam: Present: alert, CN II-XII intact, oriented X3, no focal deficits. Absent: pronater drift, facial droop, speech deficit - Skin Skin exam: Present: dry, intact Internal Medicine: Result - Labs CBC & Chem 7: 12/29/16 04:50 12/29/16 04:50 Labs: Short CBC 12/29/16 Range/Units 04:50 WBC 8.4 (4.3-11.1) K/mcL Hgb 11.5 (11.5-15.4) g/dL Hct 36.7 (35.3-44.9) % Plt Count 188 (140-400) K/mcL Neutrophils # 5.7 (1.6-8.9) K/mcL BMP 12/29/16 04:50 Sodium 139 Potassium 3.9 Chloride 101 Carbon Dioxide 30 H BUN 15 Creatinine 1.09 Glucose 100 H Calcium 8.7 - ABG Interpretation ABG results: PT/INR, D-dimer PT 10.5 Seconds (9.4-12.1) 12/26/16 15:06 Consult Discharge Plan - Plan Referrals: Sander Bennett Jr, MD [Primary Care Provider] -
[2016-12-29] MEDS ORDERED: Albuterol 2.5 MG/3 ML NEBULIZER IH PRN (12:46)
[2016-12-29] MEDS: Ipratropium/Albuterol Neb 3 ML IH SCH ×3 (14:51→21:24)
[2016-12-29] MEDS: ALPRAZolam 1 MG TABLET PO PRN (20:23)
[2016-12-29] MEDS: Sennosides/Docusate Sodium TABLET PO SCH (20:23)
[2016-12-29] MEDS: traZODone 50 MG TABLET PO SCH (20:24)
--- NOTE | 2016-12-29 23:34 | Podiatry Progress Note ---
Date of Encounter: 12/29/16 Time of Encounter: 13:31 - Assessment and Plan (1) Closed right fibular fracture Current Visit: Yes Status: Acute Patient was instructed that we will need to proceed with surgical intervention. The patient was agreeable. The surgery discussed was open reduction, internal fixation of the right ankle fracture. At this time the patient is on Plavix and we will have to discontinue Plavix for at least 1-2 days prior to the surgery. We will likely proceed with surgical intervention on Saturday. The patient was agreeable.Patient was informed of the risks and complications of surgery. These may include but are not limited to the following; nerve damage, numbness, tingling, RSD/CRPS, loss of motor function, loss of toe, loss of limb , loss of life, ischemia, wound healing issues, infection, scarring, keloid formation, continued pain, arthritis, non-union, mal-union, prominent hardware, displaced hardware, reaction to hardware, the need to remove hardware, bruising , continued limp, the need for future surgery, over correction, under correction , chronic swelling, the need for physical therapy, stiffness of joints, ulceration, slow healing, wound dehiscence, reaction to implant, reaction to sutures. The patient was informed of the possible conservative treatments available which may include but are not limited to the following: Orthotics, bracing, non -weight bearing, physical therapy, padding, taping, steroid injections, NSAIDS, casting. The patient was given the option to seek a second opinion. It was explained that surgery is an art and not an exact science therefore results cannot be guaranteed. All the patients questions and concerns were addressed. Patient agrees to have the surgery despite the possible risks and complications. Absolutely no guarantees were given or implied. Qualifiers: Encounter type: initial encounter Fibula location: shaft Fracture morphology: other fracture Qualified Code(s): S82.491A - Other fracture of shaft of right fibula, initial encounter for closed fracture Subjective Principal diagnosis: Right ankle fracture Interval history: Patient relates that she has had difficulty with bowel movements. Patient relates that otherwise she just has pain from the fracture. Patient denies any other pedal complaints. Objective - Vital Signs Vital Signs: Vital Signs Temp Pulse Resp BP Pulse Ox 12/29/16 21:24 15 98 12/29/16 20:20 97.8 F 68 16 133/69 96 12/29/16 16:11 14 98 12/29/16 14:34 98.0 F 74 16 121/66 95 12/29/16 11:32 97.8 F 72 16 133/76 94 12/29/16 08:00 18 97 12/29/16 06:57 98.3 F 66 16 107/64 93 12/29/16 04:23 98.1 F 69 17 121/72 97 12/28/16 23:50 98.5 F 71 17 140/66 96 Intake and Output 12/29/16 12/29/16 12/29/16 07:59 15:59 23:59 Intake Total 600 / 600 1160 / 1160 550 / 550 Output Total 600 / 600 1075 / 1075 Balance 0 / 0 85 / 85 550 / 550 Intake: Oral 600 / 600 1160 / 1160 550 / 550 Output: Catheter 600 / 600 1075 / 1075 Other: Meal Lunch Dinner Percent of Meal Consumed 75% 35% - Exam Exam: The splint is intact but upon inspection at the toes there appears to be mild swelling. Capillary fill time intact to digits 1 through 5 bilaterally. Sensation grossly intact to level of the digits. Radiographic exam demonstrates a fracture of the fibula and medial malleolus. Patient is able to dorsiflex and plantarflex digits. - Lab Result Diagrams: 12/29/16 04:50 12/29/16 04:50 Labs: Abnormal lab results MCH 26.3 pg (28.0-33.3) L 12/29/16 04:50 MCHC 31.3 g/dL (31.6-35.5) L 12/29/16 04:50 MPV 9.2 fL (9.4-12.4) L 12/29/16 04:50 Carbon Dioxide 30 mEq/L (19-29) H 12/29/16 04:50 Est GFR ( Amer) 59 (> 60) L 12/29/16 04:50 Est GFR (Non-Af Amer) 49 (> 60) L 12/29/16 04:50 Glucose 100 mg/dL (70-99) H 12/29/16 04:50 Consult Discharge Plan - Plan Referrals: Sander Bennett Jr, MD [Primary Care Provider] -
[2016-12-30] MEDS: Ipratropium/Albuterol Neb 3 ML IH SCH ×5 (03:43→21:50)
[2016-12-30] MEDS: *HR* Heparin 5,000 UNIT/ML VIAL SQ SCH ×3 (06:07→20:57)
[2016-12-30] MEDS: *HR* Morphine 2 MG/ML SYRINGE IVP PRN ×2 (06:15→19:53)
[2016-12-30 06:49] LABS: Basophils % 0.4 %; Eosinophils # 0.2 K/mcL (0.0-0.6); Eosinophils % 2.4 %; Hematocrit 35.2 % (35.3-44.9); Hemoglobin 10.9 g/dL (11.5-15.4); Immature Granulocytes % 0.6 % (0-4); Lymphocytes # 1.8 K/mcL (0.6-4.6); Lymphocytes % 25.4 %; Mean Corpuscular Hemoglobin 26.2 pg (28.0-33.3); Mean Corpuscular Volume 84.6 fL (83.0-100.0); Mean Platelet Volume 9.5 fL (9.4-12.4); Monocytes # 0.8 K/mcL (0.0-1.3); Monocytes % 11.5 %; Neutrophils # 4.2 K/mcL (1.6-8.9); Platelet Count 188 K/mcL (140-400); Red Blood Count 4.16 M/mcL (3.82-4.97); Red Cell Distribution Width 14.6 % (11.5-14.5); Segmented Neutrophils % 59.7 %
[2016-12-30] MEDS: (Dexlansoprazole [Dexilant] 60 MG) PO SCH (06:54)
[2016-12-30] MEDS: Cholecalciferol (D-3) 1,000 UNIT TABLET PO SCH (06:54)
[2016-12-30] MEDS: predniSONE 5 MG TABLET PO SCH ×2 (06:54→20:40)
[2016-12-30] MEDS: Sennosides/Docusate Sodium TABLET PO SCH ×3 (06:54→19:53)
[2016-12-30] MEDS: Furosemide 40 MG TABLET PO SCH (06:54)
[2016-12-30] MEDS: Folic Acid 1 MG TABLET PO SCH (06:54)
[2016-12-30] MEDS: Magnesium Oxide 400 MG TABLET PO SCH ×2 (06:54→19:54)
[2016-12-30 07:01] LABS: Calcium 9.2 mg/dL (8.6-10.8)
[2016-12-30] MEDS ORDERED: Lidocaine -MPF 2% 2 ML VIAL ONE (07:15)
[2016-12-30] MEDS ORDERED: Dexamethasone 4 MG/ML VIAL ONE (07:15)
[2016-12-30] MEDS ORDERED: Ondansetron 4 MG/2 ML VIAL ONE (07:15)
[2016-12-30] MEDS ORDERED: *HR* Phenylephrine 10 MG/ML VIAL ONE (07:15)
[2016-12-30] MEDS ORDERED: Propofol 500 MG/50 ML INFUS..BTL ONE (07:15)
[2016-12-30] MEDS ORDERED: *HR* Succinylcholine 200 MG/10 ML VIAL IVP ONE (07:15)
[2016-12-30] MEDS ORDERED: *HR* FentaNYL (PF) 100 MCG/2 ML VIAL ONE (07:18)
[2016-12-30] MEDS ORDERED: Bupivacaine/Clonidine Syringe 1 EACH SYRINGE ONE (07:18)
[2016-12-30] MEDS ORDERED: *HR* Midazolam HCl 2 MG/2 ML VIAL ONE (07:18)
--- NOTE | 2016-12-30 07:34 | Anesthesia Evaluation PreOp ---
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 Other Medical History: Renal (stage III CKD), Other (BMI 36) Anesthesia History: No Prior Anesthetic Complications Alcohol Use: none Drug use: none Medications and Allergies Albuterol Sulfate [Albuterol Inhaler] 2 puff IH Q4HR PRN 06/13/15 [History] Alprazolam [Xanax] 2 mg PO HS 06/13/15 [History] Cholecalciferol (Vitamin D3) [Vitamin D3] 2,000 unit PO DAILY 06/13/15 [History] Clopidogrel [Plavix] 75 mg PO DAILY 06/13/15 [History] Dexlansoprazole [Dexilant] 60 mg PO DAILY 06/13/15 [History] Duloxetine [Cymbalta] 60 mg PO DAILY 06/13/15 [History] Folic Acid 1 mg PO DAILY 06/13/15 [History] Furosemide [Lasix] 80 mg PO DAILY 06/13/15 [History] Magnesium Oxide [Mag-Ox] 400 mg PO BID 06/13/15 [History] Potassium Chloride [Klor-Con Sprinkle] 40 meq PO TID 06/13/15 [History] TraMADol [Ultram] 50 mg PO Q6H PRN 06/13/15 [History] TraZODone 50 mg PO HS 06/13/15 [History] Diclofenac Sodium [Voltaren] 1 appl TP QID PRN 12/26/16 [History] Mometasone Furoate [Nasonex] 2 spray NS DAILY 12/26/16 [History] Mometasone/Formoterol [Dulera 200 Mcg/5 Mcg Inhaler] 2 puff IH BID 12/26/16 [ History] Oxygen 2 l NS AD 12/26/16 [History] Tiotropium [Spiriva] 18 mcg IH 0700 12/26/16 [History] predniSONE [PredniSONE] 5 mg PO DAILY 12/26/16 [History] Allergies atorvastatin [From Lipitor] Allergy (Verified 10/14/15 15:38) Hives cephalexin Allergy (Verified 10/14/15 15:38) Hives hydrocodone Allergy (Verified 10/14/15 15:38) Hives Penicillins [PCN] Allergy (Verified 10/14/15 15:38) Hives ropinirole [From Requip] Allergy (Verified 10/14/15 15:38) Unresponsive - Meds/Allergy Pre-op Review Medications Reviewed: Yes Allergies Reviewed: Yes Beta Blockers on Current Med List: No Anesthesia Results - Labs 12/30/16 06:33 12/30/16 06:33 - Imaging EKG: report reviewed, image reviewed (SR; borderline LAD; low QRS in precordial leads; poor R wave progression) Anesthesia Exam Last Vital Signs Temp 97.8 F 12/30/16 06:34 Pulse 74 12/30/16 06:34 Resp 16 12/30/16 06:34 BP 128/76 12/30/16 06:34 Pulse Ox 96 12/30/16 06:34 Weight: 96 kg NPO (# of Hours): >> 8 hrs - HEENT Pupil (Motor): Pupils equal, EOMI Mallampati: III Teeth: Edentulous Oral Opening: Greater than 3 - 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
[2016-12-30] MEDS ORDERED: *HR* HYDROmorphone (PF) 1 MG/ML SYRINGE IVP PRN (07:50)
[2016-12-30] MEDS ORDERED: Albuterol 2.5 MG/3 ML NEBULIZER IH ONE (07:50)
[2016-12-30] MEDS ORDERED: Hydrocortisone Sodium Succ 100 MG/2 ML VIAL ONE (07:54)
[2016-12-30] MEDS ORDERED: Clindamycin 900 MG/50 ML 900 MG/50 ML IV.SOLN IVPB ONE ×2 (08:00→08:03)
[2016-12-30] MEDS ORDERED: ROPIVACAINE HCL/PF 0.5% 30 ML VIAL ONE (08:02)
--- NOTE | 2016-12-30 08:50 | Anesthesia Procedures ---
Date of Encounter: 12/30/16 Time of Encounter: 08:10 Procedures: Anesthesia - Nerve Block Procedure Date: 12/30/16 Time: 08:10 Pre-op Diagnosis: R ankle pain Surgical Procedure: R ankle ORIF Checklist: Correct Patient Identifier, Correct procedure, History checked Correct side: Right Blood Thinner: Yes Monitor Applied: EKG, BP, Pulse Oximetry Sedation: Versed (mg): 1 Sedation: Fentanyl (mcg): 50 Indication: Post Op Analgesia Pre-op Neuro Deficits: Yes Block Type: Popliteal Sterile Technique: Yes Ultrasound used: Yes Anatomy identified: Yes Visual spread of Local: Yes Neuro Stimulation: Yes Nerve Stimulator Range: 0.2 - 0.4 mA Blood on Needle Aspiration: No Smooth Injection of Local: Yes Pain with Injection of Local: No Prep: Chlorhexadine Needle: 22 x 50 mm Stimuplex Local: Ropivacaine (0.5%) Volume (cc): 30 Number of Attempts: 1 Complications: None/effective block
[2016-12-30] MEDS ORDERED: EPHEDrine 50 MG/ML VIAL ONE (09:02)
--- NOTE | 2016-12-30 10:46 | Anesthesia Evaluation Post Op ---
Date of Encounter: 12/30/16 Time of Encounter: 10:45 - Vital Signs Vital Signs: Last Vital Signs Temp 98.6 F 12/30/16 10:15 Pulse 65 12/30/16 10:35 Resp 18 12/30/16 10:35 BP 121/68 12/30/16 10:35 Pulse Ox 95 12/30/16 10:35 - Lungs Lungs: Clear Ascult./Percussion - Airway Airway: Non-obstructed - Cardiovascular Regular Rate - Mental Status Mental Status: Alert & Oriented, Answers Appropriately - Pain Pain Scale: 1 - Nausea Vomiting Nausea Vomiting: Not Present - Hydration Hydration: Ice chips, Adams catheter - Discharge PostOp Status: Transfer Patient to floor
[2016-12-30] MEDS: Budesonide/Formoterol 160/4.5 MDI IH SCH ×3 (10:56→21:51)
--- NOTE | 2016-12-30 11:15 | Internal Med Progress Note ---
Date of Encounter: 12/30/16 Time of Encounter: 11:14 - Assessment and plan (1) Dislocation of right ankle joint Current Visit: Yes Status: Acute Assessment and plan: Secondary to fracture Qualifiers: Encounter type: initial encounter Qualified Code(s): S93.04XA - Dislocation of right ankle joint, initial encounter (2) Closed right fibular fracture Current Visit: Yes Status: Acute Assessment and plan: Post-op today s/p mechanical fall , x-ray revealed closed right fibular fracture. Continue heparin DVT prophylaxis Her functional capacity is poor. She has multiple clinical predictors including CKD, steroid -dependent COPD. S PT/OT eval. SW for placement post-op Continue pain control Other Management per dr. Stokes Qualifiers: Encounter type: initial encounter Fibula location: shaft Fracture morphology: other fracture Qualified Code(s): S82.491A - Other fracture of shaft of right fibula, initial encounter for closed fracture (3) CKD (chronic kidney disease), stage III Current Visit: Yes Status: Chronic Assessment and plan: creatinine stable we will continue to monitor creatinine, avoid nephrotoxins, monitor intake and output daily weights (4) COPD (chronic obstructive pulmonary disease) Current Visit: Yes Status: Chronic Assessment and plan: advanced COPD, Steroid dependent Chest is CTAB this a.m Continue duonebs QID shceduled Continue prednsione, home dose Continue to Hold spiriva Qualifiers: COPD type: unspecified COPD Qualified Code(s): J44.9 - Chronic obstructive pulmonary disease, unspecified - Subjective Interval history: Seen and evaluated at bedside being managed for Closed R fibular fracture She has a PMH of advanced COPD, steroid dependent, CKD III, She has had surgery this morning, uneventful Denies new complains Tolerating clear liquid diets - Constitutional Vitals: Temp Pulse Resp BP Pulse Ox 97.6 F 65 16 105/66 96 12/30/16 11:08 12/30/16 11:08 12/30/16 11:08 12/30/16 11:08 12/30/16 11:08 General appearance: Present: A&O X 3, pleasant, no acute distress, answers questions appropriately - Head Head exam: Present: atraumatic, normocephalic - Eye Eye exam: Present: PERRL, conjuntiva pink, sclera anicteric Pupils: Present: PERRL - Neck Neck exam general surgery: Present: supple, trachea midline. Absent: lymphadenopathy - Respiratory Respiratory exam: Present: CTAB. Absent: accessory muscle use, rales, rhonchi, wheezes - Cardiovascular Cardiovascular exam: Present: RRR, +S1, +S2. Absent: diastolic murmur, gallop, rubs, systolic murmur - GI/Abdominal GI/Abdominal exam: Present: normal bowel sounds, soft, no peritoneal signs. Absent: distended, tenderness - Extremities Exam Extremities exam: Present: warm, radial pulses palpable and symetrical. Absent : calf tenderness, cyanotic, pedal edema Additional comments: Right leg in soft cast, able to wiggle toes, normal capillary refill - Neurological Exam Neurological exam: Present: alert, CN II-XII intact, oriented X3, no focal deficits. Absent: pronater drift, facial droop, speech deficit - Skin Skin exam: Present: dry, intact Internal Medicine: Result - Labs CBC & Chem 7: 12/30/16 06:33 12/30/16 06:33 Labs: Short CBC 12/30/16 Range/Units 06:33 WBC 7.0 (4.3-11.1) K/mcL Hgb 10.9 L (11.5-15.4) g/dL Hct 35.2 L (35.3-44.9) % Plt Count 188 (140-400) K/mcL Neutrophils # 4.2 (1.6-8.9) K/mcL BMP 12/30/16 06:33 Sodium 136 Potassium 4.0 Chloride 100 Carbon Dioxide 28 BUN 17 Creatinine 1.22 H Glucose 95 Calcium 9.2 - ABG Interpretation ABG results: PT/INR, D-dimer PT 10.5 Seconds (9.4-12.1) 12/26/16 15:06 - Impressions Impressions Fluoroscopy 12/30/16 09:17 IMPRESSION: Intraprocedural fluoroscopic spot images as above. See separate procedure report for more information. D/ / Collin Page MD / Collin Page MD Interpreting Provider: Collin Page MD Consult Discharge Plan - Plan Referrals: Sander Bennett Jr, MD [Primary Care Provider] -
[2016-12-30] MEDS ORDERED: Lactulose Oral Soln 20 GM/30 ML UDC PO ONE (17:15)
[2016-12-30] MEDS: traMADol 50 MG TABLET PO PRN ×2 (17:26→23:48)
[2016-12-30] MEDS: traZODone 50 MG TABLET PO SCH (19:54)
[2016-12-30] MEDS: ALPRAZolam 1 MG TABLET PO PRN (20:57)
[2016-12-31] MEDS: *HR* Morphine 2 MG/ML SYRINGE IVP PRN ×4 (03:34→22:32)
[2016-12-31] MEDS: Ipratropium/Albuterol Neb 3 ML IH SCH ×4 (03:47→21:23)
[2016-12-31] MEDS ORDERED: Lactulose Oral Soln 20 GM/30 ML UDC PO ONE (04:09)
[2016-12-31 05:30] LABS: Basophils % 0.3 %; Eosinophils # 0.1 K/mcL (0.0-0.6); Eosinophils % 1.2 %; Hematocrit 34.5 % (35.3-44.9); Hemoglobin 10.6 g/dL (11.5-15.4); Immature Granulocytes % 0.3 % (0-4); Lymphocytes # 1.3 K/mcL (0.6-4.6); Lymphocytes % 13.4 %; Mean Corpuscular HGB Conc 30.7 g/dL (31.6-35.5); Mean Corpuscular Hemoglobin 26.2 pg (28.0-33.3); Mean Corpuscular Volume 85.4 fL (83.0-100.0); Mean Platelet Volume 9.6 fL (9.4-12.4); Monocytes # 0.9 K/mcL (0.0-1.3); Monocytes % 8.9 %; Neutrophils # 7.2 K/mcL (1.6-8.9); Platelet Count 212 K/mcL (140-400); Red Blood Count 4.04 M/mcL (3.82-4.97); Red Cell Distribution Width 14.7 % (11.5-14.5); Segmented Neutrophils % 75.9 %
[2016-12-31 05:33] LABS: Calcium 9.3 mg/dL (8.6-10.8); Potassium 4.6 mEq/L (3.5-4.5)
[2016-12-31] MEDS: *HR* Heparin 5,000 UNIT/ML VIAL SQ SCH ×3 (06:21→21:10)
[2016-12-31] MEDS: predniSONE 5 MG TABLET PO SCH (07:27)
[2016-12-31] MEDS: Cholecalciferol (D-3) 1,000 UNIT TABLET PO SCH (07:27)
[2016-12-31] MEDS: Sennosides/Docusate Sodium TABLET PO SCH ×2 (07:27→21:10)
[2016-12-31] MEDS: Furosemide 40 MG TABLET PO SCH (07:27)
[2016-12-31] MEDS: Magnesium Oxide 400 MG TABLET PO SCH ×2 (07:27→21:10)
[2016-12-31] MEDS: traMADol 50 MG TABLET PO PRN ×3 (07:27→21:10)
[2016-12-31] MEDS: Folic Acid 1 MG TABLET PO SCH (07:28)
[2016-12-31] MEDS: (Dexlansoprazole [Dexilant] 60 MG) PO SCH (07:28)
--- NOTE | 2016-12-31 09:31 | Operative Note ---
Date of procedure: 12/30/16 Pre-op diagnosis: Right ankle fracture with subluxation Post-op diagnosis: same Procedure: Open reduction internal fixation of the right ankle fracture with stabilization of the syndesmosis/repair of syndesmosis Implants: Waldron plate with associated screws Complications: None Anesthesia: HAMLETA Surgeon: Wally Stokes Estimated blood loss (cc): 5 Condition: stable Disposition: PACU Procedure in Detail: The patient was administered IV antibiotics. The patient was transported to the operative room and placed on operating table in the supine position. Following anesthesia the extremity was scrubbed prepped and draped in the usual aseptic fashion. A timeout was performed. The lower extremity was raised to 60 degrees for hemostasis and exsanguinated utilizing an Esmarch bandage. The pneumatic tourniquet was inflated. The leg was lowered to the table. An incision was made and deepened through subcutaneous tissue with care taken to identify and retract all vital neurovascular structures. The fracture of the distal fibula was identified and noted to be oblique in nature. The site was reduced utilizing lobster claw, due to poor bone quality a lag screw was not used. The site was stabilized temporarily utilizing 2 K wire fixation instead. A neutralization plate was applied. The fracture site was noted to have stable fixation at which point the temporary K wire fixation was removed. An incision was made over the medial malleolus and deepened through subcutaneous tissue with care taken to identify and retract all vital neurovascular structures. The medial malleolus fracture was reduced and stabilized utilizing 2 K wires. After adequate confirmation of good reduction was confirmed the site was permanently stabilized with 2 screw fixation. The K wires were then removed. After the neutralization plate was applied the syndesmosis was then tested and noted to be insufficient. A syndesmotic screw was then placed to repair the subluxation/syndesmosis. The incision site was irrigated with copious amounts of normal saline and closed in a layered fashion. A dry sterile dressing was applied. The pneumatic tourniquet was deflated and a hyperemic response was noted to all digits. The patient was placed in a posterior splint. The patient tolerated the procedure and anesthesia well and was transported to the recovery room with vital signs stable and vascular status intact to both feet. The patient will be readmitted to the floor per anesthesia. The patient will keep the dressings clean, dry, intact until the follow-up appointment in 1-2 weeks. The patient's weightbearing status will be strict nonweightbearing.
[2016-12-31] MEDS: Budesonide/Formoterol 160/4.5 MDI IH SCH ×2 (10:51→21:23)
--- NOTE | 2016-12-31 12:29 | Internal Med Progress Note ---
Date of Encounter: 12/31/16 Time of Encounter: 12:27 - Assessment and plan (1) Dislocation of right ankle joint Current Visit: Yes Status: Acute Assessment and plan: Secondary to fracture Qualifiers: Encounter type: initial encounter Qualified Code(s): S93.04XA - Dislocation of right ankle joint, initial encounter (2) Closed right fibular fracture Current Visit: Yes Status: Acute Assessment and plan: POD 1 Continue heparin DVT prophylaxis SW for placement Continue pain control Other Management per dr. Stokes Qualifiers: Encounter type: initial encounter Fibula location: shaft Fracture morphology: other fracture Qualified Code(s): S82.491A - Other fracture of shaft of right fibula, initial encounter for closed fracture (3) CKD (chronic kidney disease), stage III Current Visit: Yes Status: Chronic Assessment and plan: creatinine stable we will continue to monitor creatinine, avoid nephrotoxins, monitor intake and output daily weights (4) COPD (chronic obstructive pulmonary disease) Current Visit: Yes Status: Chronic Assessment and plan: advanced COPD, Steroid dependent Chest is CTAB this a.m Continue duonebs QID shceduled Continue prednsione, home dose Continue to Hold spiriva Qualifiers: COPD type: unspecified COPD Qualified Code(s): J44.9 - Chronic obstructive pulmonary disease, unspecified - Subjective Interval history: Seen and evaluated at bedside, sitting out of bed to chair being managed for Closed R fibular fracture She has a PMH of advanced COPD, steroid dependent, CKD III, POD 1 No new complains PT/OT recommends ECF, SW aware Restart plavix, d/c Adams, continue other care - Constitutional Vitals: Temp Pulse Resp BP Pulse Ox 98.3 F 64 16 113/67 96 12/31/16 07:16 12/31/16 08:35 12/31/16 08:35 12/31/16 08:35 12/31/16 08:35 General appearance: Present: A&O X 3, pleasant, no acute distress, answers questions appropriately - Head Head exam: Present: atraumatic, normocephalic - Eye Eye exam: Present: PERRL, conjuntiva pink, sclera anicteric Pupils: Present: PERRL - Neck Neck exam general surgery: Present: supple, trachea midline. Absent: lymphadenopathy - Respiratory Respiratory exam: Present: CTAB. Absent: accessory muscle use, rales, rhonchi, wheezes - Cardiovascular Cardiovascular exam: Present: RRR, +S1, +S2. Absent: diastolic murmur, gallop, rubs, systolic murmur - GI/Abdominal GI/Abdominal exam: Present: normal bowel sounds, soft, no peritoneal signs. Absent: distended, tenderness - Extremities Exam Extremities exam: Present: warm, radial pulses palpable and symetrical. Absent : calf tenderness, cyanotic, pedal edema Additional comments: Right leg in soft cast, able to wiggle toes, normal capillary refill - Neurological Exam Neurological exam: Present: alert, CN II-XII intact, oriented X3, no focal deficits. Absent: pronater drift, facial droop, speech deficit - Skin Skin exam: Present: dry, intact Internal Medicine: Result - Labs CBC & Chem 7: 12/31/16 04:55 12/31/16 04:55 Labs: Short CBC 12/31/16 Range/Units 04:55 WBC 9.5 (4.3-11.1) K/mcL Hgb 10.6 L (11.5-15.4) g/dL Hct 34.5 L (35.3-44.9) % Plt Count 212 (140-400) K/mcL Neutrophils # 7.2 (1.6-8.9) K/mcL BMP 12/31/16 04:55 Sodium 139 Potassium 4.6 H Chloride 100 Carbon Dioxide 32 H BUN 21 H Creatinine 1.23 H Glucose 128 H Calcium 9.3 - ABG Interpretation ABG results: PT/INR, D-dimer PT 10.5 Seconds (9.4-12.1) 12/26/16 15:06 Consult Discharge Plan - Plan Referrals: Sander Bennett Jr, MD [Primary Care Provider] -
[2016-12-31] MEDS: traZODone 50 MG TABLET PO SCH (21:10)
[2017-01-01] MEDS: *HR* Morphine 2 MG/ML SYRINGE IVP PRN ×2 (02:50→08:40)
[2017-01-01] MEDS: Ipratropium/Albuterol Neb 3 ML IH SCH ×4 (04:09→21:00)
[2017-01-01] MEDS: traMADol 50 MG TABLET PO PRN (05:39)
[2017-01-01] MEDS: *HR* Heparin 5,000 UNIT/ML VIAL SQ SCH ×3 (05:39→21:58)
[2017-01-01] MEDS: (Dexlansoprazole [Dexilant] 60 MG) PO SCH (08:53)
[2017-01-01] MEDS: predniSONE 5 MG TABLET PO SCH (09:00)
[2017-01-01] MEDS: Folic Acid 1 MG TABLET PO SCH (09:00)
[2017-01-01] MEDS: Sennosides/Docusate Sodium TABLET PO SCH ×2 (09:00→20:49)
[2017-01-01] MEDS: Magnesium Oxide 400 MG TABLET PO SCH ×2 (09:00→20:49)
[2017-01-01] MEDS: Furosemide 40 MG TABLET PO SCH (09:00)
[2017-01-01] MEDS: Cholecalciferol (D-3) 1,000 UNIT TABLET PO SCH (09:00)
--- NOTE | 2017-01-01 10:04 | Podiatry Progress Note ---
Date of Encounter: 01/01/17 Time of Encounter: 10:02 - Assessment and Plan (1) Closed right fibular fracture Current Visit: Yes Status: Acute Patient will continue to ice and elevate. Patient will remain strict nonweightbearing. Patient will keep the splint intact until her follow-up appointment in 1 week in my clinic. Today the patient was written for a prescription for pain medication. The patient would likely benefit from DVT prophylaxis however due to multiple drug issues with DVT prophylaxis I would prefer a hospitalist in putting appropriate DVT prophylaxis for this patient for the next 3-4 weeks until I am able to have her begin range of motion exercises. After that point to limit patient would just need to continue her previous regimen for prophylactic TIA treatment. Qualifiers: Encounter type: initial encounter Fibula location: shaft Fracture morphology: other fracture Qualified Code(s): S82.491A - Other fracture of shaft of right fibula, initial encounter for closed fracture Subjective Principal diagnosis: Right ankle fracture Interval history: Patient relates continued improvement and but states that she would like a stronger pain medication. Patient denies any other pedal complaints. Objective - Vital Signs Vital Signs: Vital Signs Temp Pulse Resp BP Pulse Ox 01/01/17 06:34 98.9 F 67 16 133/75 96 01/01/17 04:56 98.9 F 74 15 148/72 93 12/31/16 23:52 98.6 F 77 20 131/67 96 12/31/16 21:23 18 97 12/31/16 19:01 98 F 98 19 136/85 98 12/31/16 16:24 18 96 12/31/16 14:50 97.5 F L 81 16 133/79 96 12/31/16 10:51 18 94 Intake and Output 12/31/16 01/01/17 01/01/17 23:59 07:59 15:59 Intake Total 240 / 240 20 / 20 Output Total 450 / 450 200 / 200 Balance -210 / -210 -200 / -200 20 / 20 Intake: Oral 240 / 240 20 / 20 Output: Urine 450 / 450 200 / 200 Other: Meal Dinner Breakfast Percent of Meal Consumed 40% 30% Stool Size Small Stool Consistency soft formed Stool Color Brown # Voids 1 1 # Bowel Movements 1 - Exam Exam: Vascular exam-edema noted, capillary fill time is immediate to digits one through 5 bilaterally. Dermatologic the splint is intact however there are no signs of erythema noted on the exposed portions of skin. Neurologic exam- sensation is grossly intact to light touch. Musculoskeletal exam-no pain with manual calf compression. - Lab Result Diagrams: 12/31/16 04:55 12/31/16 04:55 Labs: Abnormal lab results Hgb 10.6 g/dL (11.5-15.4) L 12/31/16 04:55 Hct 34.5 % (35.3-44.9) L 12/31/16 04:55 MCH 26.2 pg (28.0-33.3) L 12/31/16 04:55 MCHC 30.7 g/dL (31.6-35.5) L 12/31/16 04:55 RDW 14.7 % (11.5-14.5) H 12/31/16 04:55 Potassium 4.6 mEq/L (3.5-4.5) H 12/31/16 04:55 Carbon Dioxide 32 mEq/L (19-29) H 12/31/16 04:55 BUN 21 mg/dL (7-20) H 12/31/16 04:55 Creatinine 1.23 mg/dL (0.57-1.11) H 12/31/16 04:55 Est GFR ( Amer) 52 (> 60) L 12/31/16 04:55 Est GFR (Non-Af Amer) 43 (> 60) L 12/31/16 04:55 Glucose 128 mg/dL (70-99) H 12/31/16 04:55 - VTE Documentation of Mechanical Device: Intermittent pneumatic compression device Consult Discharge Plan - Plan Referrals: Sander Bennett Jr, MD [Primary Care Provider] - Prescriptions: Oxycodone HCl/Acetaminophen [Percocet 10-325 mg Tablet] 1 each PO Q6HR #28 tablet
[2017-01-01] MEDS: Budesonide/Formoterol 160/4.5 MDI IH SCH ×2 (10:50→21:00)
[2017-01-01] MEDS ORDERED: DEXILANT 60 MG PO SCH (14:45)
[2017-01-01] MEDS: *HR* OxyCODONE/APAP 10/325 TABLET PO PRN (15:13)
[2017-01-01] MEDS: DEXILANT 60 MG PO SCH (18:44)
--- NOTE | 2017-01-01 19:51 | Internal Med Progress Note ---
Date of Encounter: 01/01/17 Time of Encounter: 08:00 - Assessment and plan (1) History of TIA (transient ischemic attack) Current Visit: Yes Status: Acute Assessment and plan: Patient is on Plavix. (2) Closed right fibular fracture Current Visit: Yes Status: Acute Assessment and plan: POD 1 Continue heparin DVT prophylaxis SW for placement Continue pain control Other Management per dr. Stokes Qualifiers: Encounter type: initial encounter Fibula location: shaft Fracture morphology: other fracture Qualified Code(s): S82.491A - Other fracture of shaft of right fibula, initial encounter for closed fracture (3) CKD (chronic kidney disease), stage III Current Visit: Yes Status: Chronic Assessment and plan: creatinine stable we will continue to monitor creatinine, avoid nephrotoxins, monitor intake and output daily weights (4) COPD (chronic obstructive pulmonary disease) Current Visit: Yes Status: Chronic Assessment and plan: advanced COPD, Steroid dependent Scattered wheezes Continue duonebs QID shceduled Continue prednsione, home dose Continue to Hold spiriva Qualifiers: COPD type: unspecified COPD Qualified Code(s): J44.9 - Chronic obstructive pulmonary disease, unspecified (5) DVT prophylaxis Current Visit: No Status: Acute Assessment and plan: Heparin subcutaneously - Time Spent With Patient 25 - 35 minutes - Subjective Interval history: Patient is a 76 year old female admitted for fall and right fibular fracture. Her past medical history is significant for end-stage COPD on long-term by mouth steroid, hypertension, CKD. Patient was seen and examined. S/P surgery day 2, minimal pain. Vital signs stable. No shortness of breath. Plan for rehabilitation discharge. Podiatry consult appreciated. We will recommend continue heparin subcutaneously for DVT prophylaxis during rehabilitation, closely monitor hemoglobin and platelets level weekly in rehabilitation center (not Lovenox because of the concern of borderline renal function). - Constitutional Vitals: Temp Pulse Resp BP Pulse Ox 97.6 F 77 18 137/88 97 01/01/17 15:35 01/01/17 15:35 01/01/17 15:35 01/01/17 15:35 01/01/17 15:35 General appearance: Present: A&O X 3, pleasant, no acute distress, answers questions appropriately - Head Head exam: Present: atraumatic, normocephalic - Eye Eye exam: Present: PERRL, conjuntiva pink, sclera anicteric Pupils: Present: PERRL - Neck Neck exam general surgery: Present: supple, trachea midline. Absent: lymphadenopathy - Respiratory Respiratory exam: Present: CTAB. Absent: accessory muscle use, rales, rhonchi, wheezes - Cardiovascular Cardiovascular exam: Present: RRR, +S1, +S2. Absent: diastolic murmur, gallop, rubs, systolic murmur - GI/Abdominal GI/Abdominal exam: Present: normal bowel sounds, soft, no peritoneal signs. Absent: distended, tenderness - Extremities Exam Extremities exam: Present: warm, radial pulses palpable and symetrical. Absent : calf tenderness, cyanotic, pedal edema - Neurological Exam Neurological exam: Present: CN II-XII intact, oriented X3, no focal deficits. Absent: pronater drift, facial droop, speech deficit - Skin Skin exam: Present: dry, intact Internal Medicine: Result - Labs CBC & Chem 7: 12/31/16 04:55 12/31/16 04:55 - ABG Interpretation ABG results: PT/INR, D-dimer PT 10.5 Seconds (9.4-12.1) 12/26/16 15:06 - VTE Documentation of Mechanical Device: Intermittent pneumatic compression device Consult Discharge Plan - Plan Referrals: Wally Stokes DPM [Partnered Physician] - 01/08/17 10:00 am Sander Bennett Jr, MD [Primary Care Provider] - Prescriptions: Oxycodone HCl/Acetaminophen [Percocet 10-325 mg Tablet] 1 each PO Q6HR #28 tablet
[2017-01-01] MEDS: traZODone 50 MG TABLET PO SCH (20:49)
[2017-01-01] MEDS: ALPRAZolam 1 MG TABLET PO PRN (20:50)
[2017-01-02] MEDS: Ipratropium/Albuterol Neb 3 ML IH SCH ×3 (03:47→16:06)
[2017-01-02] MEDS: *HR* OxyCODONE/APAP 10/325 TABLET PO PRN ×3 (04:04→13:17)
[2017-01-02 05:34] LABS: Basophils % 0.5 %; Eosinophils # 0.3 K/mcL (0.0-0.6); Eosinophils % 3.5 %; Hematocrit 33.5 % (35.3-44.9); Hemoglobin 10.4 g/dL (11.5-15.4); Immature Granulocytes % 0.4 % (0-4); Mean Corpuscular Volume 83.8 fL (83.0-100.0); Mean Platelet Volume 9.6 fL (9.4-12.4); Monocytes # 0.8 K/mcL (0.0-1.3); Monocytes % 9.5 %; Neutrophils # 4.9 K/mcL (1.6-8.9); Platelet Count 260 K/mcL (140-400); Red Cell Distribution Width 14.9 % (11.5-14.5); Segmented Neutrophils % 61.1 %
[2017-01-02 05:50] LABS: Calcium 9.4 mg/dL (8.6-10.8); Potassium 3.9 mEq/L (3.5-4.5)
[2017-01-02] MEDS: *HR* Heparin 5,000 UNIT/ML VIAL SQ SCH ×2 (05:52→13:16)
[2017-01-02] MEDS: Folic Acid 1 MG TABLET PO SCH (08:26)
[2017-01-02] MEDS: Sennosides/Docusate Sodium TABLET PO SCH (08:26)
[2017-01-02] MEDS: Magnesium Oxide 400 MG TABLET PO SCH (08:27)
[2017-01-02] MEDS: Furosemide 40 MG TABLET PO SCH (08:27)
[2017-01-02] MEDS: Cholecalciferol (D-3) 1,000 UNIT TABLET PO SCH (08:27)
[2017-01-02] MEDS: predniSONE 5 MG TABLET PO SCH (08:27)
[2017-01-02] MEDS: DEXILANT 60 MG PO SCH (08:27)
[2017-01-02] MEDS: Budesonide/Formoterol 160/4.5 MDI IH SCH (10:02)
[2017-01-02 15:05] VITALS: BP 135/75
--- NOTE | 2017-01-02 16:22 | Discharge Summary ---
Date of Encounter: 01/02/17 Time of Encounter: 14:00 - Discharge Diagnosis (1) History of TIA (transient ischemic attack) Priority: Secondary Status: Acute (2) Closed right fibular fracture Priority: Primary Status: Acute Qualifiers: Encounter type: initial encounter Fibula location: shaft Fracture morphology: other fracture Qualified Code(s): S82.491A - Other fracture of shaft of right fibula, initial encounter for closed fracture (3) CKD (chronic kidney disease), stage III Priority: Secondary Status: Chronic (4) COPD (chronic obstructive pulmonary disease) Priority: Secondary Status: Chronic Qualifiers: COPD type: unspecified COPD Qualified Code(s): J44.9 - Chronic obstructive pulmonary disease, unspecified (5) DVT prophylaxis Priority: Secondary Status: Acute - Discharge Medications Prescriptions: Oxycodone HCl/Acetaminophen [Percocet 10-325 mg Tablet] 1 each PO Q6HR #28 tablet Home Medications: Albuterol Sulfate [Albuterol Inhaler] 2 puff IH Q4HR PRN 06/13/15 [History] Alprazolam [Xanax] 2 mg PO HS 06/13/15 [History] Cholecalciferol (Vitamin D3) [Vitamin D3] 2,000 unit PO DAILY 06/13/15 [History] Clopidogrel [Plavix] 75 mg PO DAILY 06/13/15 [History] Dexlansoprazole [Dexilant] 60 mg PO DAILY 06/13/15 [History] Duloxetine [Cymbalta] 60 mg PO DAILY 06/13/15 [History] Folic Acid 1 mg PO DAILY 06/13/15 [History] Furosemide [Lasix] 80 mg PO DAILY 06/13/15 [History] Magnesium Oxide [Mag-Ox] 400 mg PO BID 06/13/15 [History] Potassium Chloride [Klor-Con Sprinkle] 40 meq PO TID 06/13/15 [History] TraMADol [Ultram] 50 mg PO Q6H PRN 06/13/15 [History] TraZODone 50 mg PO HS 06/13/15 [History] Diclofenac Sodium [Voltaren] 1 appl TP QID PRN 12/26/16 [History] Mometasone Furoate [Nasonex] 2 spray NS DAILY 12/26/16 [History] Mometasone/Formoterol [Dulera 200 Mcg/5 Mcg Inhaler] 2 puff IH BID 12/26/16 [ History] Oxygen 2 l NS AD 12/26/16 [History] Tiotropium [Spiriva] 18 mcg IH 0700 12/26/16 [History] predniSONE [PredniSONE] 5 mg PO DAILY 12/26/16 [History] Oxycodone HCl/Acetaminophen [Percocet 10-325 mg Tablet] 1 each PO Q6HR #28 tablet 01/01/17 [Rx] Heparin 5,000 unit SQ Q12H vial 01/02/17 [Rx] Allergies/Adverse Reactions: Allergies atorvastatin [From Lipitor] Allergy (Verified 10/14/15 15:38) Hives cephalexin Allergy (Verified 10/14/15 15:38) Hives hydrocodone Allergy (Verified 10/14/15 15:38) Hives Penicillins [PCN] Allergy (Verified 10/14/15 15:38) Hives ropinirole [From Requip] Allergy (Verified 10/14/15 15:38) Unresponsive - Notes to Outpatient Provider 1. Please continue heparin 5000 units subcutaneously every 12 hours for DVT prophylaxis for 3-4 weeks, until patient to see Dr. coleman at office. 2. Please check hemoglobin and platelet level weekly as patient using heparin for DVT prophylaxis. Date of admission: 12/26/16 16:32 Primary care physician: Sander Bennett Jr, MD Consults: 12/26/16 16:59 Consult to Pastoral Services [CONS] Routine Comment: 12/26/16 17:36 Consult to Occupational Therapy [CONS] Routine Comment: Evaluate, develop and implement POC Reason for Consult: R fibula fx Consult to Physical Therapy [CONS] Routine Comment: Evaluate, develop and implement POC Reason for Consult: R fibula fx Consult to Resident Program Specialist [CONS] Routine Reason for SW Consult: R fib fx placement for skilled 12/31/16 08:25 Consult to Resident Program Specialist [CONS] Routine Reason for SW Consult: Placement for rehab Discharging clinician: Jessica Roque Anticipated date of discharge: 01/02/17 - Patient Status Disposition: Transfer Inpatient Rehab Fac Condition: Fair Functional capacity at discharge: uses cane/walker Overall status at discharge: patient is progressing back to baseline - Discharge Instructions Follow Up With: Wally Coleman DPM [Partnered Physician] - 05/30/17 10:00 am Sander Bennett Jr, MD [Primary Care Provider] - - Diet and Activity Activity: as per physical therapy Diet: advance to your usual diet Interval History: Ms. Miller is a 76 year old female past medical history of COPD stage III TIA COPD 2 L nasal cannula oxygen obstructive sleep apnea. According to patient she was attempting to get off a horse when she stepped down and hold her right ankle. Her ankle was deformed and painful presented to the ER. X-ray right ankle revealed close right femur fracture as well as dislocation of right ankle joint. Patient was given conscious sedation in the ER right ankle was reduced. Laboratory workup was unremarkable. Orthopedics was consulted. Patient was admitted for further evaluation. Presently the patient is sleepy but arouses to verbal stimuli and answers questions appropriately. Family is at bedside. Patient states that she lives alone with her she has had frequent falls in the past recently fracturing her patella. She denies any past cardiac history she has a history of CVA on Plavix and statin. She has no neurological deficits cranial nerves II through XII are intact she follows commands. Heart sounds S1 and S2 with no rubs, clicks murmurs noted lungs sounds clear throughout all lung mederos. She is hemodynamically stable this time. Hospital course: Ms. Miller is a 76 year old female admitted to for fistula fracture. She was evaluated by podiatry, surgery has been done. After surgery, patient to recover well. Minimal pain on pain medication. Patient with discharge to rehabilitation center for further management. I saw and examined the patient today. She is awake alert, oriented 3. Pain is well controlled with pain medication. No shortness of breath. Vital signs stable. I have discussed with patient that if she need continue heparin subcutaneously for DVT prophylaxis in rehabilitation center, until she see Dr. coleman in his office. Patient showed understanding. - Time Spent with Patient Total time spent providing and/or coordinating discharge services: 40 minutes Greater than 30 minutes - Constitutional Vitals: Temp Pulse Resp BP Pulse Ox 98.7 F 113 14 135/75 98 01/02/17 15:04 01/02/17 15:04 01/02/17 16:07 01/02/17 15:04 01/02/17 16:07 General appearance: Present: A&O X 3, pleasant, no acute distress, answers questions appropriately - Head Head exam: Present: atraumatic, normocephalic - Eye Eye exam: Present: PERRL, conjuntiva pink, sclera anicteric Pupils: Present: PERRL - Neck Neck exam general surgery: Present: supple, trachea midline. Absent: lymphadenopathy - Respiratory Respiratory exam: Present: CTAB. Absent: accessory muscle use, rales, rhonchi, wheezes - Cardiovascular Cardiovascular exam: Present: RRR, +S1, +S2. Absent: diastolic murmur, gallop, rubs, systolic murmur - GI/Abdominal GI/Abdominal exam: Present: normal bowel sounds, soft, no peritoneal signs. Absent: distended, tenderness - Extremities Exam Extremities exam: Present: warm, radial pulses palpable and symetrical. Absent : calf tenderness, cyanotic, pedal edema Additional comments: Right fistula surgery, well-dressed - Neurological Exam Neurological exam: Present: CN II-XII intact, oriented X3, no focal deficits. Absent: pronater drift, facial droop, speech deficit - Skin Skin exam: Present: dry, intact - VTE Documentation of Mechanical Device: Intermittent pneumatic compression device
--- NOTE | 2017-01-02 16:31 | Physician Discharge Referral ---
ExtendedCare Referral Info Transfer To: Rehab Provider in Charge after Transfer: Other - Diagnosis (1) History of TIA (transient ischemic attack) Status: Acute (2) Closed right fibular fracture Status: Acute (3) CKD (chronic kidney disease), stage III Status: Chronic (4) COPD (chronic obstructive pulmonary disease) Status: Chronic (5) DVT prophylaxis Status: Acute - Transfer Medications Prescriptions: Oxycodone HCl/Acetaminophen [Percocet 10-325 mg Tablet] 1 each PO Q6HR #28 tablet Home Medications: Albuterol Sulfate [Albuterol Inhaler] 2 puff IH Q4HR PRN 06/13/15 [History] Alprazolam [Xanax] 2 mg PO HS 06/13/15 [History] Cholecalciferol (Vitamin D3) [Vitamin D3] 2,000 unit PO DAILY 06/13/15 [History] Clopidogrel [Plavix] 75 mg PO DAILY 06/13/15 [History] Dexlansoprazole [Dexilant] 60 mg PO DAILY 06/13/15 [History] Duloxetine [Cymbalta] 60 mg PO DAILY 06/13/15 [History] Folic Acid 1 mg PO DAILY 06/13/15 [History] Furosemide [Lasix] 80 mg PO DAILY 06/13/15 [History] Magnesium Oxide [Mag-Ox] 400 mg PO BID 06/13/15 [History] Potassium Chloride [Klor-Con Sprinkle] 40 meq PO TID 06/13/15 [History] TraMADol [Ultram] 50 mg PO Q6H PRN 06/13/15 [History] TraZODone 50 mg PO HS 06/13/15 [History] Diclofenac Sodium [Voltaren] 1 appl TP QID PRN 12/26/16 [History] Mometasone Furoate [Nasonex] 2 spray NS DAILY 12/26/16 [History] Mometasone/Formoterol [Dulera 200 Mcg/5 Mcg Inhaler] 2 puff IH BID 12/26/16 [ History] Oxygen 2 l NS AD 12/26/16 [History] Tiotropium [Spiriva] 18 mcg IH 0700 12/26/16 [History] predniSONE [PredniSONE] 5 mg PO DAILY 12/26/16 [History] Oxycodone HCl/Acetaminophen [Percocet 10-325 mg Tablet] 1 each PO Q6HR #28 tablet 01/01/17 [Rx] Heparin 5,000 unit SQ Q12H vial 01/02/17 [Rx] Allergies/Adverse Reactions: Allergies atorvastatin [From Lipitor] Allergy (Verified 10/14/15 15:38) Hives cephalexin Allergy (Verified 10/14/15 15:38) Hives hydrocodone Allergy (Verified 10/14/15 15:38) Hives Penicillins [PCN] Allergy (Verified 10/14/15 15:38) Hives ropinirole [From Requip] Allergy (Verified 10/14/15 15:38) Unresponsive - Respiratory Orders Oxygen / L per min (2, as needed) Smoking Cessation: Smoking cessation has been advised. For more information, call the [employer] Tobacco Quit Line at 0-581-VAXF-NOW. - Lab Orders Lab Orders: CBC (weekly) - Advance Directives Code Status: Full Code - Rehabiliation Orders Rehab Potential: Good Rehab Orders: Evaluation for Physical Therapy, Evaluation for Occupational Therapy - Diet Orders Cardiac CERTIFICATION: I certify that the transfer of the above named patient to an Extended Care Facility is necessary for the continuing treatment of the diagnosis listed. The above information is true and accurate reflection of patient's current condition. Confidential - Redisclosure prohibited without a patient's written consent.
== END 2017-01-02 19:04 | DRG 494 ==
LOC: EMEROO 13:06 → 3NENU 13:06 → SUATTDRO 16:32 → 3NENU 12-28 12:03
PROVIDERS: ADMIT Nurse Practitioner Acute Care; ATTEND Internal Medicine

== ENCOUNTER 2018-11-07 11:51 | Observation (INO) ==
[2018-11-07] MEDS ORDERED: Ipratropium/Albuterol Neb 3 ML IH ONE (12:40)
[2018-11-07] MEDS ORDERED: methylPREDNISolone 125 MG/2 ML VIAL IVP ONE (12:40)
--- NOTE | 2018-11-07 12:49 | Emergency Department Note ---
Disposition Clinical Impression: COPD exacerbation, Shortness of breath Disposition: Admitted As Inpatient Condition: Fair Forms: ED Satisfaction Letter Time of Disposition: 14:25 General Adult HPI - General Chief complaint: ED Shortness of Breath/Dyspnea Stated complaint: Dr. Alejandro TAO sent Time Seen by Provider: 11/07/18 12:11 Source: patient Mode of arrival: ambulatory Limitations: no limitations Nursing Notes Reviewed: Yes Vital Signs Reviewed: Yes - History of Present Illness HPI Narrative: Patient is a 78-year-old female that presents emergency Department with reports of increased shortness of breath. Patient states that she has a history of COPD and over the past 3 days her breathing has been worse. Patient states that she has use breathing treatments as well as her inhaler with minimal relief. Patient states that she was at her [place] office today who recommended she come here to the emergency department for further evaluation and management. Patient states that she has chronic chest pain that has not gotten any worse from her baseline. Patient denies any radiation of the pain. Patient states that she has had intermittent cough but has not had any sputum production. Patient has any fevers. Patient has any recent sick contacts. Pain Scale: 7 - Related Data Home Medications Medication Instructions Recorded Confirmed Alprazolam [Xanax] 2 mg PO HS 06/13/15 08/21/18 Cholecalciferol (Vitamin D3) 2,000 unit PO DAILY 06/13/15 08/21/18 [Vitamin D3] Clopidogrel [Plavix] 75 mg PO DAILY 06/13/15 08/21/18 Dexlansoprazole [Dexilant] 60 mg PO DAILY 06/13/15 08/21/18 Duloxetine [Cymbalta] 60 mg PO DAILY 06/13/15 08/21/18 Folic Acid 1 mg PO DAILY 06/13/15 08/21/18 Furosemide [Lasix] 80 mg PO DAILY 06/13/15 08/21/18 Magnesium Oxide [Mag-Ox] 400 mg PO BID 06/13/15 08/21/18 Potassium Chloride [Klor-Con 40 meq PO TID 06/13/15 08/21/18 Sprinkle] TraMADol [Ultram] 50 mg PO Q6H PRN 06/13/15 08/21/18 Diclofenac Sodium [Voltaren] 1 appl TP QID PRN 12/26/16 08/21/18 Mometasone Furoate [Nasonex] 2 spray NS DAILY 12/26/16 08/21/18 Oxygen 2 l NS AD 12/26/16 08/21/18 Albuterol Sulfate [Ventolin Hfa] 18 gm IH Q4H PRN 03/05/17 08/21/18 Estradiol [Estrace] 42.5 gm VG AD 03/05/17 08/21/18 Montelukast [Singulair] 10 mg PO HS 03/05/17 08/21/18 Budesonide/Formoterol 80/4.5 2 puff IH BID 09/10/17 08/21/18 [Symbicort 80/4.5] Cetirizine HCl [Zyrtec] 10 mg PO DAILY 03/06/18 08/21/18 Calcitriol [Rocaltrol] 0.25 mcg PO 3XW 06/04/18 08/21/18 Levalbuterol [Xopenex] 1 puff IH BID 06/04/18 08/21/18 Sennosides [Senna] 2 tab PO DAILY 06/04/18 08/21/18 Sucralfate [Carafate] 1 gm PO HS 06/04/18 08/21/18 predniSONE [PredniSONE] 10 mg PO DAILY 08/21/18 08/21/18 Allergies Allergy/AdvReac Type Severity Reaction Status Date / Time atorvastatin [From Lipitor] Allergy Hives Verified 03/06/18 09:10 cephalexin Allergy Hives Verified 03/06/18 09:10 hydrocodone Allergy Hives Verified 03/06/18 09:10 Penicillins [PCN] Allergy Hives Verified 03/06/18 09:10 ropinirole [From Requip] Allergy Unresponsiv Verified 03/06/18 09:10 e All systems ED: reviewed and negative except as stated. Constitutional: Denies: fever Cardiovascular: Reports: chest pain Respiratory: Reports: cough, dyspnea. Denies: sputum production Gastrointestinal: Denies: abdominal pain, nausea, vomiting Past Medical History - Past Medical History Medical history: Reports: arthritis, asthma, COPD, GERD, hypertension, renal disease, TIA Surgical history: Reports: appendectomy, cholecystectomy, hysterectomy, knee replacement, sinus surgery, other Psychiatric history: Reports: no psych history - Social History Smoking Status: Never smoker Smokeless Tobacco Status: No Alcohol use: Reports: none Drug use: Reports: none Physical Exam - General Limitations: no limitations General appearance: alert, in no apparent distress - Head Head exam: atraumatic, normocephalic - Eye Eye exam: Present: normal appearance, EOMI - Neck Neck exam: Present: normal inspection, full ROM, trachea midline - Respiratory Respiratory exam: Present: wheezes - Cardiovascular Cardiovascular exam: Present: regular rate, normal rhythm, normal heart sounds, +S1, +S2 - Abdominal Exam Abdominal exam: Present: soft, Non-Tender, normal bowel sounds - Neurological Exam Neurological exam: Present: alert, oriented X3 - Psychiatric Psychiatric exam: Present: normal affect, normal mood - Skin Skin exam: Present: warm, dry, intact Course Vital Signs Temperature 97.5 F L 11/07/18 11:56 Pulse Rate 79 11/07/18 11:56 Respiratory Rate 18 11/07/18 11:56 Blood Pressure 145/87 11/07/18 11:56 O2 Sat by Pulse Oximetry 96 11/07/18 11:56 Temperature 97.5 F L 11/07/18 11:56 Pulse Rate 79 11/07/18 11:56 Respiratory Rate 16 11/07/18 13:09 Blood Pressure 145/87 11/07/18 11:56 O2 Sat by Pulse Oximetry 98 11/07/18 13:09 Oxygen Delivery Oxygen Delivery Room Air Medical Decision Making - [facility] Narrative Medical decision making narrative: Due the patient's into the emergency department with reports of shortness of breath we will obtain a sick laboratory testing, chest x-ray EKG and provide the patient with DuoNeb breathing treatments as well as steroids. Patient is still having increased shortness of breath after receiving the DuoNeb breathing treatment. Patient be given additional albuterol breathing treatments here in the emergency department. This and the patient having persistent symptoms the patient will need to be admitted to the hospital for further evaluation and management of her COPD exacerbation. Patient is in agreement with this plan. I called spoke the admitting hospitalist and they have accepted the patient to their service. Laboratory testing is relatively unremarkable other than an elevated creatinine which is at the patient's baseline. - Medical Records Medical records reviewed: Yes I reviewed the patient's medical records. - Lab Data Lab results reviewed: Yes I reviewed the patient's lab results. Result diagrams: 11/07/18 13:00 11/07/18 13:00 Lab Results 11/07/18 11/07/18 11/07/18 Range/Units 13:00 13:00 13:00 WBC 7.1 (4.3-11.1) K/mcL RBC 4.85 (3.82-4.97) M/mcL Hgb 11.7 (11.5-15.4) g/dL Hct 38.8 (35.3-44.9) % MCV 80.0 L (83.0-100.0) fL MCH 24.1 L (28.0-33.3) pg MCHC 30.2 L (31.6-35.5) g/dL RDW 15.0 H (11.5-14.5) % Plt Count 243 (140-400) K/mcL MPV 9.6 (9.4-12.4) fL Immature Gran % 0.3 (0-4) % Seg Neutrophils % 64.7 % Lymphocytes % 25.4 % Monocytes % 7.3 % Eosinophils % 1.7 % Basophils % 0.6 % Neutrophils # 4.6 (1.6-8.9) K/mcL Lymphocytes # 1.8 (0.6-4.6) K/mcL Monocytes # 0.5 (0.0-1.3) K/mcL Eosinophils # 0.1 (0.0-0.6) K/mcL Basophils # 0.0 (0.0-0.2) K/mcL Sodium 138 (136-145) mEq/L Potassium 4.1 (3.5-5.1) mEq/L Chloride 106 (98-107) mEq/L Carbon Dioxide 27 (23-29) mEq/L BUN 26 H (8-23) mg/dL Creatinine 1.36 H (0.60-1.20) mg/dL Est GFR ( Amer) 46 L (> 60) Est GFR (Non-Af Amer) 38 L (> 60) BUN/Creatinine Ratio 19 (6-26) Glucose 100 (70-105) mg/dL Calculated Osmolality 291 (280-300) Calcium 9.9 (8.6-10.3) mg/dL Troponin I < 0.03 (< 0.04) ng/mL B-Natriuretic Peptide 35 (Less than 100) pg/mL - Radiology Data Radiology results reviewed: Yes I reviewed the patient's radiology results. Chest X-Ray 11/07/18 12:40 IMPRESSION: 1. No acute cardiopulmonary disease. D/ / Emma Robin MD / Emma Robin MD Interpreting Provider: Emma Robin MD - EKG Data EKG #1 EKG attestation: Yes I reviewed and interpreted this EKG. EKG results narrative: EKG shows a sinus rhythm at a rate of 61 bpm, SC interval 164, QRS duration 92, QTC of 452. There is no evidence of STEMI on EKG.
--- NOTE | 2018-11-07 12:57 | Emergency Department Note ---
Disposition Clinical Impression: COPD (chronic obstructive pulmonary disease) Qualifiers: COPD type: COPD with acute exacerbation Qualified Code(s): J44.1 - Chronic obstructive pulmonary disease with (acute) exacerbation Disposition: Admitted As Inpatient Forms: ED Satisfaction Letter General Adult HPI - General Chief complaint: ED Shortness of Breath/Dyspnea Stated complaint: AISLINN, Dr. Allen sent Time Seen by Provider: 11/07/18 12:11 Source: patient Mode of arrival: ambulatory Limitations: no limitations Nursing Notes Reviewed: Yes Vital Signs Reviewed: Yes - History of Present Illness HPI Narrative: Attestation note ED attending note I examined this patient and my medical decision-making was reviewed with the emergency medicine resident Dr. Albino Cox. I agree with the documented findings, disposition and treatment plan as described except to the extent set forth below. Briefly: 78-year-old female advanced age COPD sent in by pulmonology for evaluation and admission. Patient is normally O2 dependent at night only increasing shortness of breath even during the daytime patient has bibasilar and bilateral expiratory wheezes and some crackles. Patient denies new sputum changes or fever. Patient be getting DuoNeb steroids screening labs chest x-ray EKG with admission anticipated. Providing 30 minutes critical care service for this patient. Admission disposition pending Pain Scale: 7 - Related Data Home Medications Medication Instructions Recorded Confirmed Alprazolam [Xanax] 2 mg PO HS 06/13/15 08/21/18 Cholecalciferol (Vitamin D3) 2,000 unit PO DAILY 06/13/15 08/21/18 [Vitamin D3] Clopidogrel [Plavix] 75 mg PO DAILY 06/13/15 08/21/18 Dexlansoprazole [Dexilant] 60 mg PO DAILY 06/13/15 08/21/18 Duloxetine [Cymbalta] 60 mg PO DAILY 06/13/15 08/21/18 Folic Acid 1 mg PO DAILY 06/13/15 08/21/18 Furosemide [Lasix] 80 mg PO DAILY 06/13/15 08/21/18 Magnesium Oxide [Mag-Ox] 400 mg PO BID 06/13/15 08/21/18 Potassium Chloride [Klor-Con 40 meq PO TID 06/13/15 08/21/18 Sprinkle] TraMADol [Ultram] 50 mg PO Q6H PRN 06/13/15 08/21/18 Diclofenac Sodium [Voltaren] 1 appl TP QID PRN 12/26/16 08/21/18 Mometasone Furoate [Nasonex] 2 spray NS DAILY 12/26/16 08/21/18 Oxygen 2 l NS AD 12/26/16 08/21/18 Albuterol Sulfate [Ventolin Hfa] 18 gm IH Q4H PRN 03/05/17 08/21/18 Estradiol [Estrace] 42.5 gm VG AD 03/05/17 08/21/18 Montelukast [Singulair] 10 mg PO HS 03/05/17 08/21/18 Budesonide/Formoterol 80/4.5 2 puff IH BID 09/10/17 08/21/18 [Symbicort 80/4.5] Cetirizine HCl [Zyrtec] 10 mg PO DAILY 03/06/18 08/21/18 Calcitriol [Rocaltrol] 0.25 mcg PO 3XW 06/04/18 08/21/18 Levalbuterol [Xopenex] 1 puff IH BID 06/04/18 08/21/18 Sennosides [Senna] 2 tab PO DAILY 06/04/18 08/21/18 Sucralfate [Carafate] 1 gm PO HS 06/04/18 08/21/18 predniSONE [PredniSONE] 10 mg PO DAILY 08/21/18 08/21/18 Allergies Allergy/AdvReac Type Severity Reaction Status Date / Time atorvastatin [From Lipitor] Allergy Hives Verified 03/06/18 09:10 cephalexin Allergy Hives Verified 03/06/18 09:10 hydrocodone Allergy Hives Verified 03/06/18 09:10 Penicillins [PCN] Allergy Hives Verified 03/06/18 09:10 ropinirole [From Requip] Allergy Unresponsiv Verified 03/06/18 09:10 e Constitutional: Denies: fever Cardiovascular: Reports: chest pain Respiratory: Reports: cough, dyspnea. Denies: sputum production Gastrointestinal: Denies: abdominal pain, nausea, vomiting Past Medical History - Past Medical History Medical history: Reports: arthritis, asthma, COPD, GERD, hypertension, renal disease, TIA Surgical history: Reports: appendectomy, cholecystectomy, hysterectomy, knee replacement, sinus surgery, other Psychiatric history: Reports: no psych history - Social History Smoking Status: Never smoker Smokeless Tobacco Status: No Alcohol use: Reports: none Drug use: Reports: none Physical Exam - General Limitations: no limitations General appearance: alert, in no apparent distress Course Vital Signs Temperature 97.5 F L 11/07/18 11:56 Pulse Rate 79 11/07/18 11:56 Respiratory Rate 18 11/07/18 11:56 Blood Pressure 145/87 11/07/18 11:56 O2 Sat by Pulse Oximetry 96 11/07/18 11:56 Temperature 97.5 F L 11/07/18 11:56 Pulse Rate 79 11/07/18 11:56 Respiratory Rate 18 11/07/18 11:56 Blood Pressure 145/87 11/07/18 11:56 O2 Sat by Pulse Oximetry 96 11/07/18 11:56 Oxygen Delivery Oxygen Delivery Room Air
[2018-11-07 13:20] LABS: Basophils % 0.6 %; Eosinophils # 0.1 K/mcL (0.0-0.6); Eosinophils % 1.7 %; Hematocrit 38.8 % (35.3-44.9); Hemoglobin 11.7 g/dL (11.5-15.4); Immature Granulocytes % 0.3 % (0-4); Lymphocytes # 1.8 K/mcL (0.6-4.6); Lymphocytes % 25.4 %; Mean Corpuscular HGB Conc 30.2 g/dL (31.6-35.5); Mean Corpuscular Hemoglobin 24.1 pg (28.0-33.3); Mean Platelet Volume 9.6 fL (9.4-12.4); Monocytes # 0.5 K/mcL (0.0-1.3); Monocytes % 7.3 %; Neutrophils # 4.6 K/mcL (1.6-8.9); Platelet Count 243 K/mcL (140-400); Red Blood Count 4.85 M/mcL (3.82-4.97); Segmented Neutrophils % 64.7 %
[2018-11-07 13:31] LABS: BUN/Creatinine Ratio 19 (6-26); Blood Urea Nitrogen 26 mg/dL (8-23); Calcium 9.9 mg/dL (8.6-10.3); Carbon Dioxide 27 mEq/L (23-29); Chloride 106 mEq/L (98-107); Glucose 100 mg/dL (70-105); Osmolality,Calculated 291 (280-300); Potassium 4.1 mEq/L (3.5-5.1); Sodium 138 mEq/L (136-145); eGFR For Non-African Americans 38 (> 60)
[2018-11-07 13:32] LABS: Troponin I < 0.03 ng/mL (< 0.04)
[2018-11-07] MEDS ORDERED: Albuterol 2.5 MG/3 ML NEBULIZER IH ONE (14:10)
--- NOTE | 2018-11-07 17:56 | Internal Med History&Physical ---
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 Patient reports of a 3 day onset of shortness of breath addition to wheezing with nonproductive cough. She was brought in by family due to concerns of worsening COPD. In the ER, patient was found to be afebrile without leukocytosis and chest x-ray negative for any focal consolidation or pleural effusion. Patient will be admitted to observation unit for COPD exacerbation. Past Med Surg Social Fam HX - Past Medical History Medical history: arthritis, asthma, COPD, GERD, hypertension, renal disease, TIA Additional medical history: sleep apnea Psychiatric history: no psych history - Past Surgical History Surgical History: appendectomy, cholecystectomy, hysterectomy, knee replacement, sinus surgery, other Additional surgical history: Ehsan, Bladder Tuck - Social History Smoking Status: Never smoker Smokeless Tobacco Status: No Alcohol use: none Drug use: none - Family History Mother Adopted: No Family Member Ethnicity: Non- Living Status: Hx Family Cardiac Disorders: Yes Internal Medicine - H&P: Meds Alprazolam [Xanax] 2 mg PO HS 06/13/15 [History] Cholecalciferol (Vitamin D3) [Vitamin D3] 2,000 unit PO DAILY 06/13/15 [History] Clopidogrel [Plavix] 75 mg PO DAILY 06/13/15 [History] Dexlansoprazole [Dexilant] 60 mg PO DAILY 06/13/15 [History] Duloxetine [Cymbalta] 60 mg PO DAILY 06/13/15 [History] Folic Acid 1 mg PO DAILY 06/13/15 [History] Furosemide [Lasix] 80 mg PO DAILY 06/13/15 [History] Magnesium Oxide [Mag-Ox] 400 mg PO BID 06/13/15 [History] Potassium Chloride [Klor-Con Sprinkle] 40 meq PO TID 06/13/15 [History] TraMADol [Ultram] 50 mg PO Q6H PRN 06/13/15 [History] Diclofenac Sodium [Voltaren] 1 appl TP QID PRN 12/26/16 [History] Mometasone Furoate [Nasonex] 2 spray NS DAILY 12/26/16 [History] Oxygen 2 l NS AD 12/26/16 [History] Albuterol Sulfate [Ventolin Hfa] 18 gm IH Q4H PRN 03/05/17 [History] Estradiol [Estrace] 42.5 gm VG AD 03/05/17 [History] Montelukast [Singulair] 10 mg PO HS 03/05/17 [History] Budesonide/Formoterol 80/4.5 [Symbicort 80/4.5] 2 puff IH BID 09/10/17 [Hi story] Cetirizine HCl [Zyrtec] 10 mg PO DAILY 03/06/18 [History] Calcitriol [Rocaltrol] 0.25 mcg PO 3XW 06/04/18 [History] Levalbuterol [Xopenex] 1 puff IH BID 06/04/18 [History] Sennosides [Senna] 2 tab PO DAILY 06/04/18 [History] Sucralfate [Carafate] 1 gm PO HS 06/04/18 [History] predniSONE [PredniSONE] 10 mg PO DAILY 08/21/18 [History] Allergy/AdvReac Type Severity Reaction Status Date / Time atorvastatin [From Lipitor] Allergy Hives Verified 03/06/18 09:10 cephalexin Allergy Hives Verified 03/06/18 09:10 hydrocodone Allergy Hives Verified 03/06/18 09:10 Penicillins [PCN] Allergy Hives Verified 03/06/18 09:10 ropinirole [From Requip] Allergy Unresponsiv Verified 03/06/18 09:10 e All Systems PM: A 10-system review of systems was performed and is negative for pertinent findings except as documented above in the HPI. - Constitutional Vitals: Temp Pulse Resp BP Pulse Ox 97.5 F L 79 18 143/69 98 11/07/18 11:56 11/07/18 11:56 11/07/18 17:48 11/07/18 17:48 11/07/18 14:19 General appearance: Present: A&O X 3 Exam: As above - Head Head exam: Present: atraumatic, normocephalic - Eye Eye exam: Present: normal appearance - ENT ENT exam: Present: mucous membranes moist - Respiratory Respiratory exam: Present: wheezes - Cardiovascular Cardiovascular exam: Present: RRR, +S1, +S2. Absent: diastolic murmur, gallop, rubs, systolic murmur - GI/Abdominal GI/Abdominal exam: Present: normal bowel sounds, soft, no peritoneal signs. Absent: distended, tenderness - Extremities Exam Extremities exam: Absent: pedal edema - Neurological Exam Neurological exam: Present: oriented X3 - Psychiatric Psychiatric exam: Present: normal mood - Skin Skin exam: Present: normal color Internal Med - H&P Results - Labs CBC & Chem 7: 11/07/18 13:00 11/07/18 13:00 Labs: Short CBC 11/07/18 Range/Units 13:00 WBC 7.1 (4.3-11.1) K/mcL Hgb 11.7 (11.5-15.4) g/dL Hct 38.8 (35.3-44.9) % Plt Count 243 (140-400) K/mcL Neutrophils # 4.6 (1.6-8.9) K/mcL BMP 11/07/18 13:00 Sodium 138 Potassium 4.1 Chloride 106 Carbon Dioxide 27 BUN 26 H Creatinine 1.36 H Glucose 100 Calcium 9.9 Cardiac Enzymes 11/07/18 Range/Units 13:00 Troponin I < 0.03 (< 0.04) ng/mL - Impressions ITS Impressions Chest X-Ray 11/07/18 12:40 IMPRESSION: 1. No acute cardiopulmonary disease. D/ / Emma Robin MD / Emma Robin MD Interpreting Provider: Emma Robin MD - Assessment and Plan (1) COPD exacerbation Current Visit: Yes Status: Acute Assessment and plan: In the ER, patient was found to be afebrile without leukocytosis and chest x-ray negative for any focal consolidation or pleural effusion. Will continue IV Solu-Medrol and scheduled DuoNeb's Will also order respiratory panel (2) Chronic renal disease, stage 3, moderately decreased glomerular filtration rate (GFR) between 30-59 mL/min/1.73 square meter Current Visit: No Status: Chronic Assessment and plan: Stable; continue to monitor (3) Nonfamilial hypogammaglobulinemia Current Visit: No Status: Chronic Assessment and plan: Patient follows with hematology oncology as an outpatient for management. (4) DVT prophylaxis Current Visit: No Status: Acute Assessment and plan: Heparin subcutaneous - Time Spent With Patient Total time spent is greater than 50% in coordination of care (as documented) at patient's floor/unit and/or counseling patient:
[2018-11-07] MEDS ORDERED: Naloxone 0.4 MG/ML INJ IVP PRN (18:01)
[2018-11-07] MEDS ORDERED: Ipratropium/Albuterol Neb 3 ML IH SCH (20:00)
[2018-11-07] MEDS: Azithromycin 500 MG in D5% in Water 250 ML IVPB SCH (20:01)
[2018-11-07] MEDS: traMADol 50 MG TABLET PO PRN (21:11)
[2018-11-07] MEDS: ALPRAZolam 1 MG TABLET PO SCH (23:12)
[2018-11-08] MEDS: Ipratropium/Albuterol Neb 3 ML IH SCH ×7 (00:08→23:48)
[2018-11-08 00:54] LABS: Adenovirus Not Detected (Not Detect); Bordetella Pertussis Not Detected (Not Detect); Chlamydophila pneumoniae Not Detected (Not Detect); Coronavirus 229E Not Detected (Not Detect); Coronavirus HKU1 Not Detected (Not Detect); Coronavirus NL63 Not Detected (Not Detect); Coronavirus OC43 Not Detected (Not Detect); Human Metapneumovirus Not Detected (Not Detect); Human Rhinovirus/Enterovirus Not Detected (Not Detect); Influenza A Subtype 2009 H1 Not Detected (Not Detect); Influenza A Untypeable Not Detected (Not Detect); Influenza B Not Detected (Not Detect); Mycoplasma pneumoniae Not Detected (Not Detect); Parainfluenza Virus 1 Not Detected (Not Detect); Parainfluenza Virus 2 Not Detected (Not Detect); Parainfluenza Virus 3 Not Detected (Not Detect); Parainfluenza Virus 4 Not Detected (Not Detect); Respiratory Syncytial Virus Not Detected (Not Detect)
[2018-11-08] MEDS: methylPREDNISolone 125 MG/2 ML VIAL IVP SCH ×4 (03:11→23:12)
[2018-11-08 06:26] LABS: Basophils % 0.1 %; Hemoglobin 11.3 g/dL (11.5-15.4); Immature Granulocytes % 0.5 % (0-4); Lymphocytes # 0.9 K/mcL (0.6-4.6); Lymphocytes % 9.7 %; Mean Corpuscular HGB Conc 31.4 g/dL (31.6-35.5); Mean Corpuscular Hemoglobin 24.6 pg (28.0-33.3); Mean Corpuscular Volume 78.4 fL (83.0-100.0); Mean Platelet Volume 9.9 fL (9.4-12.4); Monocytes # 0.2 K/mcL (0.0-1.3); Monocytes % 2.6 %; Neutrophils # 7.6 K/mcL (1.6-8.9); Platelet Count 243 K/mcL (140-400); Red Blood Count 4.59 M/mcL (3.82-4.97); Red Cell Distribution Width 15.1 % (11.5-14.5); Segmented Neutrophils % 87.1 %
[2018-11-08 06:41] LABS: Calcium 9.8 mg/dL (8.6-10.3); Potassium 4.7 mEq/L (3.5-5.1)
[2018-11-08] MEDS: Budesonide/Formoterol 80/4.5 MDI IH SCH ×2 (07:25→19:27)
[2018-11-08] MEDS: Folic Acid 1 MG TABLET PO SCH (07:57)
[2018-11-08] MEDS: Magnesium Oxide 400 MG TABLET PO SCH ×2 (07:57→21:32)
[2018-11-08] MEDS: Sennosides 8.6 MG TABLET PO SCH (07:57)
[2018-11-08] MEDS: Loratadine 10 MG TABLET PO SCH (07:57)
[2018-11-08] MEDS: traMADol 50 MG TABLET PO PRN (08:10)
--- NOTE | 2018-11-08 09:53 | Internal Med Progress Note ---
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 - Exam Vitals: Temp Pulse Resp BP Pulse Ox 97.9 F 83 17 123/75 93 11/08/18 07:56 11/08/18 07:56 11/08/18 07:56 11/08/18 07:56 11/08/18 07:56 Exam: Gen.: Nonacute distress, alert and oriented 3 ENT: Mucosal membranes moist Respiratory: Lungs are clear to auscultation bilaterally without any wheezing rhonchi or rales Cardiovascular: Normal S1 and S2 regular rate rhythm no murmurs rubs or gallops Abdomen: Soft, nontender and nondistended with positive bowel sounds Extremities: No lower extremity edema Skin: Normal color - Assessment and Plan (1) COPD exacerbation Current Visit: Yes Status: Acute Assessment and Plan: Patient remains afebrile without leukocytosis and chest x-ray negative for any focal consolidation or pleural effusion. Respiratory panel negative Will continue IV Solu-Medrol and scheduled [facility] [place] consulted and appreciate recommendations (2) Chronic renal disease, stage 3, moderately decreased glomerular filtration rate (GFR) between 30-59 mL/min/1.73 square meter Current Visit: No Status: Chronic Assessment and Plan: Stable; continue to monitor (3) Nonfamilial hypogammaglobulinemia Current Visit: No Status: Chronic Assessment and Plan: Patient follows with hematology oncology as an outpatient for management. DVT Prophylaxis: Subcutaneous heparin - Time Spent with Patient Total time spent is greater than 50% in coordination of care (as documented) at patient's floor/unit and/or counseling patient: Internal Medicine: Result - Labs CBC & Chem 7: 11/08/18 05:11 11/08/18 05:11 Labs: Short CBC 11/07/18 11/08/18 Range/Units 13:00 05:11 WBC 7.1 8.8 (4.3-11.1) K/mcL Hgb 11.7 11.3 L (11.5-15.4) g/dL Hct 38.8 36.0 (35.3-44.9) % Plt Count 243 243 (140-400) K/mcL Neutrophils # 4.6 7.6 (1.6-8.9) K/mcL BMP 11/07/18 11/08/18 13:00 05:11 Sodium 138 135 L Potassium 4.1 4.7 Chloride 106 101 Carbon Dioxide 27 27 BUN 26 H 24 H Creatinine 1.36 H 1.27 H Glucose 100 134 H Calcium 9.9 9.8 Cardiac Enzymes 11/07/18 Range/Units 13:00 Troponin I < 0.03 (< 0.04) ng/mL - Impressions Impressions Chest X-Ray 11/07/18 12:40 IMPRESSION: 1. No acute cardiopulmonary disease. D/ / Emma Robin MD / Emma Robin MD Interpreting Provider: Emma Robin MD Consult Discharge Plan - Plan Referrals: Sander Bennett Jr, MD [Primary Care Provider] -
[2018-11-08] MEDS ORDERED: NON-FORMULARY MEDICATION 1 EACH EACH (Oxygen [Oxygen] 2 L) NS SCH (10:00)
[2018-11-08] MEDS ORDERED: Levalbuterol 1 PUFF INHALER IH SCH (10:00)
[2018-11-08] MEDS ORDERED: ESTRACE VAGINAL CREAM VG PRN (10:00)
[2018-11-08] MEDS: Furosemide 40 MG TABLET PO SCH (10:59)
[2018-11-08] MEDS: *HR* Heparin 5,000 UNIT/ML VIAL SQ SCH ×2 (10:59→18:03)
--- NOTE | 2018-11-08 12:13 | Pulmonology Consult Note ---
Date of Encounter: 11/08/18 Time of Encounter: 10:30 Assessment and Plan (1) Acute respiratory failure with hypoxia Current Visit: No Status: Acute This patient, unfortunately continued to have bronchospasm-like pictures and she is being extensively worked up in the past and she continued to have asthma-like symptoms. She started feeling better and agree with current treatment with systemic steroids and empiric antibiotic as well as bronchodilators. Patient has been treated in the past for vocal cord dysfunction and as well as she has significant history of acid reflux which I feel it has important role for her symptoms. As long as she is feeling better now then to continue the treatment and gentle diuresis will be helpful. She has not been able to sleep well because of the cough and I will start her on Tessalon Perles, since she is aller gic to hydrocodone and can give her codeine for cough. Perhaps a small dose of Benadryl which might help her symptoms and also help her to sleep tonight would be reasonable to try. I am hoping in next 1-2 days she would be able to go back home since her chest x-ray has no evidence of any pneumonia. Thank you for consultation and please call for any questions. (2) Shortness of breath Current Visit: Yes Status: Acute History of Present Illness Consult date: 11/08/18 Requesting physician: Reginald Quintana Reason for consult: dyspnea Chief complaint: Shortness of breath History of present illness: This is a very pleasant 78-year-old female who is known to me very well from outpatient clinic and unfortunately she has been suffering from asthma-like symptoms for many years now and she is being hospitalized before for similar situation. She has been evaluated at [facility] in the past and still continued to have symptoms which is primarily bronchospasm with wheezing and worsening of shortness of breath and nonproductive cough. Patient always try to be very active and she denies any sick contact. Patient is feeling somewhat better at this time. She also been treated for obstructive sleep apnea. She has been treated for vocal cord dysfunction and she has significant history of acid reflux as well. She stated she was gaining weight and feeling worse. It has been difficult for her to sleep because of the cough. Past Med Surg Social Fam HX - Past Medical History Medical history: arthritis, asthma, COPD, GERD, hypertension, renal disease, TIA Additional medical history: sleep apnea Psychiatric history: no psych history - Past Surgical History Surgical History: appendectomy, cholecystectomy, hysterectomy, knee replacement, sinus surgery, other Additional surgical history: Ehsan, Bladder Tuck - Social History Smoking Status: Never smoker Smokeless Tobacco Status: No Alcohol use: none Drug use: none - Family History Mother Adopted: No Family Member Ethnicity: Non- Living Status: Hx Family Cardiac Disorders: Yes Medications and Allergies Alprazolam [Xanax] 2 mg PO HS 06/13/15 [History] Cholecalciferol (Vitamin D3) [Vitamin D3] 1,000 unit PO BID 06/13/15 [History] Clopidogrel [Plavix] 75 mg PO DAILY 06/13/15 [History] Dexlansoprazole [Dexilant] 60 mg PO DAILY 06/13/15 [History] Duloxetine [Cymbalta] 20 mg PO DAILY 06/13/15 [History] Folic Acid 1 mg PO DAILY 06/13/15 [History] Furosemide [Lasix] 80 mg PO DAILY 06/13/15 [History] Magnesium Oxide [Mag-Ox] 400 mg PO BID 06/13/15 [History] Potassium Chloride [Klor-Con Sprinkle] 40 meq PO TID 06/13/15 [History] TraMADol [Ultram] 50 mg PO Q6H PRN 06/13/15 [History] Mometasone Furoate [Nasonex] 2 spray NS DAILY 12/26/16 [History] Oxygen 2 l NS AD 12/26/16 [History] Albuterol Sulfate [Ventolin Hfa] 2 puff IH Q4H PRN 03/05/17 [History] Estradiol [Estrace] 42.5 gm VG AD 03/05/17 [History] Montelukast [Singulair] 10 mg PO HS 03/05/17 [History] Budesonide/Formoterol 80/4.5 [Symbicort 80/4.5] 2 puff IH BID 09/10/17 [History] Cetirizine HCl [Zyrtec] 10 mg PO DAILY 03/06/18 [History] Calcitriol [Rocaltrol] 0.25 mcg PO 3XW 06/04/18 [History] Levalbuterol [Xopenex] 1 puff IH BID 06/04/18 [History] Sennosides [Senna] 2 tab PO DAILY 06/04/18 [History] Sucralfate [Carafate] 1 gm PO HS 06/04/18 [History] predniSONE [PredniSONE] 10 mg PO DAILY 08/21/18 [History] Allergy/AdvReac Type Severity Reaction Status Date / Time atorvastatin [From Lipitor] Allergy Hives Verified 11/08/18 12:10 cephalexin Allergy Hives Verified 11/08/18 12:10 hydrocodone Allergy Hives Verified 11/08/18 12:10 Penicillins [PCN] Allergy Hives Verified 11/08/18 12:10 ropinirole [From Requip] Allergy Unresponsiv Verified 11/08/18 12:10 e All Systems: The remainder of the systems were reviewed and are negative Physical Examination Vital Signs: Vital Signs, Last 4 Hours Temp Pulse Resp BP Pulse Ox 11/08/18 11:46 97.7 F 86 16 143/74 94 11/08/18 11:26 18 94 General appearance: no acute distress (However she is sick looking patient) Eyes: nonicteric ENT: oropharynx moist Mallampati (class): 3 Neck: supple, no lymphadenopathy Effort: normal Auscultation: bilateral: rhonchi Percussion: bilateral: dull Tactile fremitus: bilateral: normal Cardiovascular: regular rate and rhythm Gastrointestinal: normoactive bowel sounds, non-distended Extremities: no cyanosis, edema normal mental status depressed Results - Laboratory Findings CBC and BMP: 11/08/18 05:11 11/08/18 05:11 Abnormal lab findings: Abnormal lab results Hgb 11.3 g/dL (11.5-15.4) L 11/08/18 05:11 MCV 78.4 fL (83.0-100.0) L 11/08/18 05:11 MCH 24.6 pg (28.0-33.3) L 11/08/18 05:11 MCHC 31.4 g/dL (31.6-35.5) L 11/08/18 05:11 RDW 15.1 % (11.5-14.5) H 11/08/18 05:11 Sodium 135 mEq/L (136-145) L 11/08/18 05:11 BUN 24 mg/dL (8-23) H 11/08/18 05:11 Creatinine 1.27 mg/dL (0.60-1.20) H 11/08/18 05:11 Est GFR ( Amer) 49 (> 60) L 11/08/18 05:11 Est GFR (Non-Af Amer) 41 (> 60) L 11/08/18 05:11 Glucose 134 mg/dL (70-105) H 11/08/18 05:11 - Diagnostic Findings Chest x-ray: report reviewed, image reviewed - Clinical Findings Intake & Output: Intake & Output 11/07/18 11/08/18 11/08/18 23:59 07:59 15:59 Intake Total 420 / 420 Balance 420 / 420 Weight 89.8 kg 89.8 kg Consult Discharge Plan - Plan Referrals: Sander Bennett Jr, MD [Primary Care Provider] -
[2018-11-08] MEDS: Benzonatate 100 MG CAPSULE PO SCH ×2 (15:34→21:32)
[2018-11-08] MEDS: Azithromycin 500 MG in D5% in Water 250 ML IVPB SCH (18:04)
[2018-11-08] MEDS: ALPRAZolam 1 MG TABLET PO SCH (21:32)
[2018-11-08] MEDS: Sucralfate 1 GM TABLET PO SCH (21:32)
[2018-11-09] MEDS: Ipratropium/Albuterol Neb 3 ML IH SCH ×5 (03:34→19:54)
[2018-11-09] MEDS: *HR* Heparin 5,000 UNIT/ML VIAL SQ SCH ×2 (05:11→18:10)
[2018-11-09] MEDS: Magnesium Oxide 400 MG TABLET PO SCH ×2 (07:56→20:36)
[2018-11-09] MEDS: Benzonatate 100 MG CAPSULE PO SCH ×3 (07:56→20:35)
[2018-11-09] MEDS: methylPREDNISolone 125 MG/2 ML VIAL IVP SCH ×3 (07:56→23:56)
[2018-11-09] MEDS: Loratadine 10 MG TABLET PO SCH (07:56)
[2018-11-09] MEDS: Furosemide 40 MG TABLET PO SCH (07:56)
[2018-11-09] MEDS: Folic Acid 1 MG TABLET PO SCH (07:56)
[2018-11-09] MEDS: Sennosides 8.6 MG TABLET PO SCH (07:56)
--- NOTE | 2018-11-09 09:14 | Internal Med Progress Note ---
Hospitalist Progress Note - Encounter Date of Encounter: 11/09/18 Time of Encounter: 11:00 - Subjective Interval History: Patient still with shortness of breath on exertion - Exam Vitals: Temp Pulse Resp BP Pulse Ox 97.9 F 67 12 127/68 99 11/09/18 07:25 11/09/18 07:25 11/09/18 07:43 11/09/18 07:43 11/09/18 07:43 Exam: Gen.: Nonacute distress, alert and oriented 3 ENT: Mucosal membranes moist Respiratory: Lungs are clear to auscultation bilaterally without any wheezing rhonchi or rales Cardiovascular: Normal S1 and S2 regular rate rhythm no murmurs rubs or gallops Abdomen: Soft, nontender and nondistended with positive bowel sounds Extremities: No lower extremity edema Skin: Normal color - Assessment and Plan (1) COPD exacerbation Current Visit: Yes Status: Acute Assessment and Plan: Patient remains afebrile without leukocytosis and chest x-ray negative for any focal consolidation or pleural effusion. Respiratory panel negative Will continue IV Solu-Medrol and [place] [facility] and appreciate recommendations (2) Chronic renal disease, stage 3, moderately decreased glomerular filtration rate (GFR) between 30-59 mL/min/1.73 square meter Current Visit: No Status: Chronic Assessment and Plan: Stable; continue to monitor (3) Nonfamilial hypogammaglobulinemia Current Visit: No Status: Chronic Assessment and Plan: Patient follows with hematology oncology as an outpatient for management. DVT Prophylaxis: Subcutaneous heparin - Time Spent with Patient Total time spent is greater than 50% in coordination of care (as documented) at patient's floor/unit and/or counseling patient: Internal Medicine: Result - Labs CBC & Chem 7: 11/09/18 10:11 11/09/18 10:11 Consult Discharge Plan - Plan Referrals: Sander Bennett Jr, MD [Primary Care Provider] -
--- NOTE | 2018-11-09 09:36 | Pulmonology Progress Note ---
Date of Encounter: 11/09/18 Time of Encounter: 09:25 Assessment and Plan (1) Acute respiratory failure with hypoxia Current Visit: No Status: Acute (2) Shortness of breath Current Visit: Yes Status: Acute (3) Asthma exacerbation Current Visit: Yes Status: Acute Patient is feeling better and perhaps one more day of current treatment and hopefully she would be able to go home in next 24 hours. Discussed with the eloisa bowman to ambulate patient and check her oxygen saturation did drink exertion. Patient will follow-up as outpatient when she is discharged home. Qualifiers: Asthma severity: severe Asthma persistence: persistent Qualified Code(s): J45.51 - Severe persistent asthma with (acute) exacerbation Subjective Principal diagnosis: Shortness of breath Interval history: Patient is feeling better and she was able to sleep better last night Objective PUL Vital signs: Last Vital Signs Temp 97.9 F 11/09/18 07:25 Pulse 67 11/09/18 07:25 Resp 12 11/09/18 07:43 BP 127/68 11/09/18 07:43 Pulse Ox 99 11/09/18 07:43 General appearance: no acute distress Eyes: nonicteric ENT: oropharynx moist Neck: supple, no lymphadenopathy Effort: normal Auscultation: bilateral: rhonchi Percussion: bilateral: not dull Tactile fremitus: bilateral: normal Cardiovascular: regular rate and rhythm Gastrointestinal: normoactive bowel sounds, non-distended Extremities: no cyanosis, edema normal mental status mood appropriate Results - Laboratory Findings CBC and BMP: 11/08/18 05:11 11/08/18 05:11 Abnormal lab findings: Abnormal lab results Hgb 11.3 g/dL (11.5-15.4) L 11/08/18 05:11 MCV 78.4 fL (83.0-100.0) L 11/08/18 05:11 MCH 24.6 pg (28.0-33.3) L 11/08/18 05:11 MCHC 31.4 g/dL (31.6-35.5) L 11/08/18 05:11 RDW 15.1 % (11.5-14.5) H 11/08/18 05:11 Sodium 135 mEq/L (136-145) L 11/08/18 05:11 BUN 24 mg/dL (8-23) H 11/08/18 05:11 Creatinine 1.27 mg/dL (0.60-1.20) H 11/08/18 05:11 Est GFR ( Amer) 49 (> 60) L 11/08/18 05:11 Est GFR (Non-Af Amer) 41 (> 60) L 11/08/18 05:11 Glucose 134 mg/dL (70-105) H 11/08/18 05:11 - Clinical Findings Intake & Output: Intake & Output 11/08/18 11/09/18 11/09/18 23:59 07:59 15:59 Weight 91 kg Consult Discharge Plan - Plan Referrals: Sander Bennett Jr, MD [Primary Care Provider] -
[2018-11-09 10:39] LABS: Basophils % 0.1 %; Hematocrit 36.4 % (35.3-44.9); Hemoglobin 11.1 g/dL (11.5-15.4); Immature Granulocytes % 0.6 % (0-4); Lymphocytes % 5.1 %; Mean Corpuscular HGB Conc 30.5 g/dL (31.6-35.5); Mean Corpuscular Hemoglobin 24.5 pg (28.0-33.3); Mean Corpuscular Volume 80.4 fL (83.0-100.0); Mean Platelet Volume 9.7 fL (9.4-12.4); Monocytes # 0.4 K/mcL (0.0-1.3); Monocytes % 2.5 %; Platelet Count 274 K/mcL (140-400); Red Blood Count 4.53 M/mcL (3.82-4.97); Red Cell Distribution Width 15.3 % (11.5-14.5); Segmented Neutrophils % 91.7 %
[2018-11-09 10:43] LABS: Lymphocytes # 0.9 K/mcL (0.6-4.6); Neutrophils # 15.2 K/mcL (1.6-8.9)
[2018-11-09 11:00] LABS: Calcium 9.9 mg/dL (8.6-10.3); Potassium 4.2 mEq/L (3.5-5.1)
[2018-11-09] MEDS: Budesonide/Formoterol 80/4.5 MDI IH SCH ×2 (11:39→19:54)
[2018-11-09] MEDS: traMADol 50 MG TABLET PO PRN ×2 (12:15→20:54)
[2018-11-09] MEDS: Azithromycin 500 MG in D5% in Water 250 ML IVPB SCH (18:10)
[2018-11-09] MEDS: Sucralfate 1 GM TABLET PO SCH (20:35)
[2018-11-09] MEDS: ALPRAZolam 1 MG TABLET PO SCH (20:36)
[2018-11-10] MEDS: Ipratropium/Albuterol Neb 3 ML IH SCH ×5 (00:05→15:41)
[2018-11-10] MEDS: *HR* Heparin 5,000 UNIT/ML VIAL SQ SCH (05:28)
[2018-11-10] MEDS: Sennosides 8.6 MG TABLET PO SCH (08:12)
[2018-11-10] MEDS: Benzonatate 100 MG CAPSULE PO SCH ×2 (08:13→14:34)
[2018-11-10] MEDS: Folic Acid 1 MG TABLET PO SCH (08:14)
[2018-11-10] MEDS: Magnesium Oxide 400 MG TABLET PO SCH (08:14)
[2018-11-10] MEDS: methylPREDNISolone 125 MG/2 ML VIAL IVP SCH (08:14)
[2018-11-10] MEDS: Loratadine 10 MG TABLET PO SCH (08:14)
[2018-11-10] MEDS: Furosemide 40 MG TABLET PO SCH (08:14)
--- NOTE | 2018-11-10 09:37 | Pulmonology Progress Note ---
Date of Encounter: 11/10/18 Time of Encounter: 07:15 Assessment and Plan (1) Acute respiratory failure with hypoxia Current Visit: No Status: Acute (2) Shortness of breath Current Visit: Yes Status: Acute (3) Asthma exacerbation Current Visit: Yes Status: Resolved Patient is feeling better and perhaps one more day of current treatment and hopefully she would be able to go home in next 24 hours. Discussed with the nurse to ambulate patient and check her oxygen saturation did drink exertion. Patient will follow-up as outpatient when she is discharged home. 11/10 patient overall is doing better and if she would agree to go home, then can be discharged on taper steroid and resume her normal daily dose of steroid after she complete the course of tapering and then we can see her in the office. Qualifiers: Asthma severity: severe Asthma persistence: persistent Qualified Code(s): J45.51 - Severe persistent asthma with (acute) exacerbation Subjective Principal diagnosis: Shortness of breath Interval history: Patient denies any worsening of her symptoms Objective PUL Vital signs: Last Vital Signs Temp 97.4 F L 11/10/18 08:05 Pulse 73 11/10/18 08:05 Resp 16 11/10/18 08:05 BP 157/85 11/10/18 08:05 Pulse Ox 96 11/10/18 08:05 General: Patient is in no acute distress. HEENT: Normocephalic atraumatic, pupils are equal round and reactive to light and accommodation, anicteric sclera, nares is patent, mucous membranes moist, no JVD, trachea is midline Cardiovascular: Normal sinus rhythm, S1 and S2 audible, no murmur or rubs Respiratory: Clear to auscultation bilaterally with only a few rhonchi. No acute distress. No wheezing. Patient not using accessory muscles. Abdomen: Soft, nontender, nondistended, positive bowel sounds in all 4 quadrants Extremities: Warm, dry, trace lower extremity edema. Normal capillary refill. Neuro: Alert and oriented and follows commands. Grossly no neuro deficits. Skin: Warm to touch : No obvious abnormalities. Psych: Normal Results - Laboratory Findings CBC and BMP: 11/09/18 10:11 11/09/18 10:11 Abnormal lab findings: Abnormal lab results WBC 16.6 K/mcL (4.3-11.1) H D 11/09/18 10:11 Hgb 11.1 g/dL (11.5-15.4) L 11/09/18 10:11 MCV 80.4 fL (83.0-100.0) L 11/09/18 10:11 MCH 24.5 pg (28.0-33.3) L 11/09/18 10:11 MCHC 30.5 g/dL (31.6-35.5) L 11/09/18 10:11 RDW 15.3 % (11.5-14.5) H 11/09/18 10:11 Neutrophils # 15.2 K/mcL (1.6-8.9) H 11/09/18 10:11 Sodium 135 mEq/L (136-145) L 11/09/18 10:11 BUN 33 mg/dL (8-23) H 11/09/18 10:11 Creatinine 1.43 mg/dL (0.60-1.20) H 11/09/18 10:11 Est GFR ( Amer) 43 (> 60) L 11/09/18 10:11 Est GFR (Non-Af Amer) 36 (> 60) L 11/09/18 10:11 Glucose 212 mg/dL (70-105) H 11/09/18 10:11 - Clinical Findings Intake & Output: Intake & Output 11/09/18 11/10/18 11/10/18 23:59 07:59 15:59 Intake Total 400 / 400 Balance 400 / 400 Weight 92.4 kg Consult Discharge Plan - Plan Referrals: Sander Bennett Jr, MD [Primary Care Provider] - 11/14/18 11:00 am
[2018-11-10] MEDS: Budesonide/Formoterol 80/4.5 MDI IH SCH (11:27)
[2018-11-10 12:48] LABS: Basophils % 0.1 %; Hemoglobin 11.8 g/dL (11.5-15.4); Immature Granulocytes % 1.9 % (0-4); Lymphocytes # 1.2 K/mcL (0.6-4.6); Lymphocytes % 7.1 %; Mean Corpuscular HGB Conc 31.1 g/dL (31.6-35.5); Mean Corpuscular Hemoglobin 24.4 pg (28.0-33.3); Mean Corpuscular Volume 78.7 fL (83.0-100.0); Mean Platelet Volume 9.7 fL (9.4-12.4); Monocytes # 0.8 K/mcL (0.0-1.3); Monocytes % 4.6 %; Neutrophils # 14.3 K/mcL (1.6-8.9); Platelet Count 292 K/mcL (140-400); Red Blood Count 4.83 M/mcL (3.82-4.97); Red Cell Distribution Width 15.5 % (11.5-14.5); Segmented Neutrophils % 86.3 %
[2018-11-10 13:10] LABS: Calcium 9.8 mg/dL (8.6-10.3); Potassium 4.2 mEq/L (3.5-5.1)
--- NOTE | 2018-11-10 14:55 | Discharge Summary ---
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 Patient reports of a 3 day onset of shortness of breath addition to wheezing with nonproductive cough. She was brought in by family due to concerns of worsening COPD. In the ER, patient was found to be afebrile without leukocytosis and chest x-ray negative for any focal consolidation or pleural effusion. Patient will be admitted to observation unit for asthma exacerbation. Patients hospital stay her symptoms improved on IV Solu-Medrol and IV antibio tics. Pulmonology was consulted with recommendations to discharge patient on long prednisone taper and she will follow up with show worker outpatient. - Time Spent with Patient Total time spent providing and/or coordinating discharge services: Time spent: Less than 30 minutes - Discharge Medications Prescriptions: New predniSONE [PredniSONE] 10 mg PO DAILY #140 tablet Continue Dexlansoprazole [Dexilant] 60 mg PO DAILY Oxygen 2 l NS AD Mometasone Furoate [Nasonex] 2 spray NS DAILY Albuterol Sulfate [Ventolin Hfa] 2 puff IH Q4H PRN PRN Reason: Shortness Of Breath Montelukast [Singulair] 10 mg PO HS Budesonide/Formoterol 80/4.5 [Symbicort 80/4.5] 2 puff IH BID Cetirizine HCl [Zyrtec] 10 mg PO DAILY Sucralfate [Carafate] 1 gm PO HS predniSONE [PredniSONE] 10 mg PO DAILY Alprazolam [Xanax] 2 mg PO HS Cholecalciferol (D-3) [Vitamin D] 1,000 unit PO DAILY Clopidogrel [Plavix] 75 mg PO DAILY Duloxetine HCl [Cymbalta] 60 mg PO BID Folic Acid 1 tab PO DAILY Furosemide [Lasix] 80 mg PO QAM Magnesium Oxide [Magnesium] 400 mg PO BID Potassium Chloride [K-Tab ER] 40 meq PO DAILY Sennosides [Senokot] 17.2 mg PO DAILY Home Medications: Dexlansoprazole [Dexilant] 60 mg PO DAILY 06/13/15 [History] Mometasone Furoate [Nasonex] 2 spray NS DAILY 12/26/16 [History] Oxygen 2 l NS AD 12/26/16 [History] Albuterol Sulfate [Ventolin Hfa] 2 puff IH Q4H PRN 03/05/17 [History] Montelukast [Singulair] 10 mg PO HS 03/05/17 [History] Budesonide/Formoterol 80/4.5 [Symbicort 80/4.5] 2 puff IH BID 09/10/17 [History] Cetirizine HCl [Zyrtec] 10 mg PO DAILY 03/06/18 [History] Sucralfate [Carafate] 1 gm PO HS 06/04/18 [History] predniSONE [PredniSONE] 10 mg PO DAILY 08/21/18 [History] Alprazolam [Xanax] 2 mg PO HS 11/08/18 [History] Cholecalciferol (D-3) [Vitamin D] 1,000 unit PO DAILY 11/08/18 [History] Clopidogrel [Plavix] 75 mg PO DAILY 11/08/18 [History] Duloxetine HCl [Cymbalta] 60 mg PO BID 11/08/18 [History] Folic Acid 1 tab PO DAILY 11/08/18 [History] Furosemide [Lasix] 80 mg PO QAM 11/08/18 [History] Magnesium Oxide [Magnesium] 400 mg PO BID 11/08/18 [History] Potassium Chloride [K-Tab ER] 40 meq PO DAILY 11/08/18 [History] Sennosides [Senokot] 17.2 mg PO DAILY 11/08/18 [History] predniSONE [PredniSONE] 10 mg PO DAILY #140 tablet 11/10/18 [Rx] Allergies/Adverse Reactions: Allergy/AdvReac Type Severity Reaction Status Date / Time atorvastatin [From Lipitor] Allergy Hives Verified 11/08/18 12:10 cephalexin Allergy Hives Verified 11/08/18 12:10 hydrocodone Allergy Hives Verified 11/08/18 12:10 Penicillins [PCN] Allergy Hives Verified 11/08/18 12:10 ropinirole [From Requip] Allergy Unresponsiv Verified 11/08/18 12:10 e Date of admission: 11/07/18 16:07 Primary care physician: Sander Bennett Jr, MD Consults: 11/08/18 09:46 Consult to Pulmonology [CONS] Routine Consulting Provider: [facility] Reason for Consult: COPD exacerbation Call Completed: Yes 11/10/18 08:37 Consult to Nurse Navigator [CONS] Routine Comment: COPD - Constitutional Vitals: Temp Pulse Resp BP Pulse Ox 97.6 F 65 18 136/70 93 11/10/18 11:21 11/10/18 11:21 11/10/18 11:30 11/10/18 11:21 11/10/18 11:58 General appearance: Present: A&O X 3 Exam: Gen.: Nonacute distress, alert and oriented 3 Skin: Normal color - Patient Status Disposition: Home, Self-Care Condition: Fair - Discharge Instructions Instructions: Asthma (DC), Chronic Obstructive Pulmonary Disease (DC), Pneumonia (DC) Follow Up With: [facility] [Provider Group] (An appointment has been requested. The office will contact you at home to schedule an appointment. ) Sander Bennett Jr, MD [Primary Care Provider] - 11/14/18 11:00 am Kyle Lloyd MD [Partnered Physician] - 11/12/18 2:00 pm
[2018-11-10 15:03] VITALS: BP 145/75
--- NOTE | 2018-11-12 07:50 | Electrocardiograph Report ---
[address] [address] Test Date: 2018-11-07 Pat Name: Beronica Miller Department: [id number] Room: 3B21 Gender: F Skip [employer]er Blasting: : 1940 Requested By: Long Cox Order Number: [id number] Reading MD: Johan Wilkins Measurements Intervals [place] Rate: 61 P: 64 AL: 164 QRS: -31 QRSD: 92 T: 58 QT: 448 QTc: 452 Interpretive Statements Sinus rhythm Left axis deviation Low voltage, precordial leads Electronically Signed On 11-12-2018 7:49:27 EDT by Johan Wilkins
== END 2018-11-10 15:46 | disposition home or self-care (01) ==
LOC: 3BNU 11:51 → EMEROOARM 11:51 → SUATTDRO 16:07 → 3BNU 17:52
PROVIDERS: ADMIT Internal Medicine; ATTEND Hospitalist

== ENCOUNTER 2018-11-27 11:41 | Observation (INO) ==
[2018-11-27] MEDS ORDERED: *HR* Dextrose 50 % in Water (Syg) 50 ML SYRINGE ONE (11:47)
[2018-11-27] MEDS ORDERED: *HR* Dextrose 50 % in Water (Syg) 50 ML SYRINGE IVP ONE (11:47)
--- NOTE | 2018-11-27 11:55 | Emergency Department Note ---
Disposition Clinical Impression: Hypoglycemia Syncope Qualifiers: Syncope type: unspecified Qualified Code(s): R55 - Syncope and collapse Disposition: Still a Patient General Adult HPI - General Stated complaint: medical assist Time Seen by Provider: 11/27/18 11:46 Nursing Notes Reviewed: Yes Vital Signs Reviewed: Yes - History of Present Illness HPI Narrative: ED attending attestation note: I examined this patient and my medical decision-making was reviewed with the emergency medicine resident YUKI CHAN . I agree with the documented findings, disposition and treatment plan as described except to the extent set forth below. Briefly: Patient with advanced COPD follows up with pulmonology service medical assistance was called because patient had 2 syncopal events and she has been feeling short of breath upon arrival she appears sleepy but responsive Accu-Chek was 50 was given 2 A of D50 set was 90-94% on room air with crackles throughout patient get a DuoNeb treatment patient did troponin screening labs portable chest x-ray. Providing 45 minutes critical care service for this patient. Patient had a twelve-lead EKG interpreted without the benefit Cardiologic assistance shows sinus rhythm at 69 bpm normal [place] QRS and QT corrected left ventricular hypertrophy otherwise no acute ischemic changes when compared to prior EKG 11/07/2018 - Related Data Home Medications Medication Instructions Recorded Confirmed Dexlansoprazole [Dexilant] 60 mg PO DAILY 06/13/15 11/13/18 Mometasone Furoate [Nasonex] 2 spray NS DAILY 12/26/16 11/13/18 Oxygen 2 l NS HS 12/26/16 11/13/18 Albuterol Sulfate [Ventolin Hfa] 2 puff IH Q4H PRN 03/05/17 11/13/18 Montelukast [Singulair] 10 mg PO HS 03/05/17 11/13/18 Sucralfate [Carafate] 1 gm PO HS 06/04/18 11/13/18 Alprazolam [Xanax] 1 mg PO HS 11/08/18 11/13/18 Cholecalciferol (D-3) [Vitamin D] 1,000 unit PO DAILY 11/08/18 11/13/18 Clopidogrel [Plavix] 75 mg PO DAILY 11/08/18 11/13/18 Duloxetine HCl [Cymbalta] 60 mg PO BID 11/08/18 11/13/18 Folic Acid 1 tab PO DAILY 11/08/18 11/13/18 Furosemide [Lasix] 80 mg PO QAM 11/08/18 11/13/18 Magnesium Oxide [Magnesium] 400 mg PO BID 11/08/18 11/13/18 Potassium Chloride [K-Tab ER] 40 meq PO DAILY 11/08/18 11/13/18 Sennosides [Senokot] 17.2 mg PO DAILY 11/08/18 11/13/18 Calcitriol [Rocaltrol] 0.25 mcg PO QMWF 11/13/18 11/13/18 Levalbuterol [Xopenex INH] 45 gm IH BID 11/13/18 11/13/18 Tramadol HCl [Ultram] 50 mg PO QID PRN 11/13/18 11/13/18 Previous Rx's Medication Instructions Recorded Magic Mouthwash 5 ml PO Q4HR #240 ml 11/13/18 Allergies Allergy/AdvReac Type Severity Reaction Status Date / Time atorvastatin [From Lipitor] Allergy Hives Verified 11/13/18 09:09 cephalexin Allergy Hives Verified 11/13/18 09:09 hydrocodone Allergy Hives Verified 11/13/18 09:09 Penicillins [PCN] Allergy Hives Verified 11/13/18 09:09 ropinirole [From Requip] Allergy Unresponsiv Verified 11/13/18 09:09 e Past Medical History - Past Medical History Medical history: Reports: arthritis, asthma, COPD, GERD, hypertension, renal disease, TIA Surgical history: Reports: appendectomy, cholecystectomy, hysterectomy, knee replacement, sinus surgery, other Psychiatric history: Reports: no psych history - Social History Smoking Status: Never smoker Smokeless Tobacco Status: No Alcohol use: Reports: none Drug use: Reports: none
--- NOTE | 2018-11-27 12:04 | Emergency Department Note ---
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 Patient was reportedly at the special education secretary office for evaluation of her COPD at which time she had 2 episodes of syncope and collapse. The patient has no significant recollection of this episode. She is not a diabetic and takes no insulin. She does admit to eating breakfast this morning comprising of toast. She has been more short of breath usual which was her reason for following up with her special education secretary. Otherwise denies any fever, chills, chest pain, nausea, vomiting, diarrhea back pain or abdominal pain. Pain Scale: 0 - Related Data Home Medications Medication Instructions Recorded Confirmed Dexlansoprazole [Dexilant] 60 mg PO DAILY 06/13/15 11/27/18 Mometasone Furoate [Nasonex] 2 spray NS DAILY 12/26/16 11/27/18 Oxygen 2 l NS HS 12/26/16 11/27/18 Albuterol Sulfate [Ventolin Hfa] 2 puff IH Q4H PRN 03/05/17 11/27/18 Montelukast [Singulair] 10 mg PO HS 03/05/17 11/27/18 Sucralfate [Carafate] 1 gm PO HS 06/04/18 11/27/18 Alprazolam [Xanax] 3 mg PO HS 11/08/18 11/27/18 Cholecalciferol (D-3) [Vitamin D] 1,000 unit PO DAILY 11/08/18 11/27/18 Clopidogrel [Plavix] 75 mg PO DAILY 11/08/18 11/27/18 Duloxetine HCl [Cymbalta] 60 mg PO BID 11/08/18 11/27/18 Folic Acid 1 tab PO DAILY 11/08/18 11/27/18 Furosemide [Lasix] 80 mg PO QAM 11/08/18 11/27/18 Magnesium Oxide [Magnesium] 400 mg PO BID 11/08/18 11/27/18 Potassium Chloride [K-Tab ER] 40 meq PO DAILY 11/08/18 11/27/18 Sennosides [Senokot] 17.2 mg PO DAILY 11/08/18 11/27/18 Calcitriol [Rocaltrol] 0.25 mcg PO QMWF 11/13/18 11/27/18 Levalbuterol [Xopenex INH] 45 gm IH BID 11/13/18 11/27/18 Tramadol HCl [Ultram] 50 mg PO QID PRN 11/13/18 11/27/18 Previous Rx's Medication Instructions Recorded Magic Mouthwash 5 ml PO Q4HR #240 ml 11/13/18 Allergies Allergy/AdvReac Type Severity Reaction Status Date / Time atorvastatin [From Lipitor] Allergy Hives Verified 11/13/18 09:09 cephalexin Allergy Hives Verified 11/13/18 09:09 hydrocodone Allergy Hives Verified 11/13/18 09:09 Penicillins [PCN] Allergy Hives Verified 11/13/18 09:09 ropinirole [From Requip] Allergy Unresponsiv Verified 11/13/18 09:09 e Review of Systems: ROS per history of present illness, all other systems reviewed and negative or normal. All systems ED: reviewed and negative except as stated. Review of Systems: As Per HPI Past Medical History - Past Medical History Medical history: Reports: arthritis, asthma, COPD, GERD, hypertension, renal disease, TIA Surgical history: Reports: appendectomy, cholecystectomy, hysterectomy, knee replacement, sinus surgery, other Psychiatric history: Reports: no psych history - Social History Smoking Status: Never smoker Smokeless Tobacco Status: No Alcohol use: Reports: none Drug use: Reports: none Physical Exam General: Patient appears her stated late age, intermittently somnolent and not responsive to questions. She is diaphoretic. Neck: No JVD. Trachea midline. Neck supple. Eyes: PERRL. No scleral icterus. HENT: Normocephalic and atraumatic. Moist mucus membranes. Cardiovascular: Regular rate and rhythm. Normal S1 and S2. No murmurs appreciated. Normal capillary refill. Extremities well perfused with 2+ distal pulses bilaterally. No edema. Pulmonary: Rales on bilateral exam anteriorly and posterior. Not in respiratory distress. Speaks in full sentences. Abdomen: Soft, nondistended, and tontender. No bruits or masses. No guarding. Neuro: Alert and oriented to person, place, and time. CN II-XII tested and grossly intact. No hemineglect. Speech is fluid and without slurring. Intermittent somnolence Sensory: Sensation intact to light touch in all extremities. Motor: Normal tone and bulk. No pronator drift. 5/5 strength in LUE 5/5 strength in RUE 5/5 strength in LLE 5/5 strength in RLE Coordination: Finger to nose and heel to talley testing intact bilaterally. Reflexes: Brachioradialis, biceps, and patellar reflexes 2+ and symmetric bilaterally. Babinski with downgoing toes bilaterally. Skin: No rashes noted on visualized skin. Musculoskeletal: No bony abnormalities visualized. Moves all extremities. Psych: Normal mood. Pleasant. Makes appropriate eye contact. - General Limitations: no limitations General appearance: alert Course Vital Signs Temperature 97.9 F 11/27/18 11:43 Pulse Rate 70 11/27/18 11:43 Respiratory Rate 18 11/27/18 11:43 Blood Pressure 193/89 11/27/18 11:43 O2 Sat by Pulse Oximetry 95 11/27/18 11:43 Temperature 97.5 F L 11/27/18 14:55 Pulse Rate 67 11/27/18 14:55 Respiratory Rate 19 11/27/18 14:55 Blood Pressure 155/82 11/27/18 14:55 O2 Sat by Pulse Oximetry 99 11/27/18 14:55 Oxygen Delivery Oxygen Delivery Room Air Medical Decision Making - [facility] Narrative Medical decision making narrative: Patient is a 78-year-old female with history of COPD who presents as a medical insurance coding specialist to the emergency department due to syncope 2. Patient was reportedly at the special education secretary office for evaluation of her COPD at which time she had 2 episodes of syncope and collapse. Upon arrival to the emergency department the patient is diaphoretic, somnolent and her blood glucose was found to be 50. She was given 1 amp of D50 with improvement in her mentation and blood glucose. Laboratory evaluation including CBC, BMP were evaluated as well as PTT/INR and PTT. This shows creatinine of 1.36, appears appropriately her baseline. Otherwise she does have leukocytosis of 17.2. Chest x-ray shows no evidence of focal consolidation. EKG shows no evidence of acute ischemia or prolonged intervals. Given the patient's lack of history of diabetes or explanation for her syncope and hypoglycemia will admit the patient for further evaluation and workup. Discussed case with on-call hospitalist Dr. Westfall who agrees with plan for admission and accepts the patient to the inpatient service. Patient agrees with and understands course of treatment plan including plan for admission. All questions answered. - Medical Records Medical records reviewed: Yes I reviewed the patient's medical records. - Lab Data Lab results reviewed: Yes I reviewed the patient's lab results. Result diagrams: 11/27/18 11:50 11/27/18 11:50 Lab Results 11/27/18 11/27/18 11/27/18 Range/Units 11:50 11:50 11:50 WBC 17.2 H (4.3-11.1) K/mcL RBC 5.56 H (3.82-4.97) M/mcL Hgb 13.3 (11.5-15.4) g/dL Hct 43.8 (35.3-44.9) % MCV 78.8 L (83.0-100.0) fL MCH 23.9 L (28.0-33.3) pg MCHC 30.4 L (31.6-35.5) g/dL RDW 18.1 H (11.5-14.5) % Plt Count 348 (140-400) K/mcL MPV 9.8 (9.4-12.4) fL Immature Gran % 0.8 (0-4) % Seg Neutrophils % 76.7 % Lymphocytes % 15.4 % Monocytes % 6.7 % Eosinophils % 0.1 % Basophils % 0.3 % Neutrophils # 13.2 H (1.6-8.9) K/mcL Lymphocytes # 2.7 (0.6-4.6) K/mcL Monocytes # 1.2 (0.0-1.3) K/mcL Eosinophils # 0.0 (0.0-0.6) K/mcL Basophils # 0.1 (0.0-0.2) K/mcL PT 10.4 (9.4-12.1) Seconds INR 0.9 APTT 26.1 (26.0-36.0) Seconds Sodium 140 (136-145) mEq/L Potassium 3.8 (3.5-5.1) mEq/L Chloride 101 (98-107) mEq/L Carbon Dioxide 29 (23-29) mEq/L BUN 31 H (8-23) mg/dL Creatinine 1.36 H (0.60-1.20) mg/dL Est GFR ( Amer) 46 L (> 60) Est GFR (Non-Af Amer) 38 L (> 60) BUN/Creatinine Ratio 23 (6-26) Glucose 49 L (70-105) mg/dL Calculated Osmolality 294 (280-300) Calcium 9.8 (8.6-10.3) mg/dL Troponin I < 0.03 (< 0.04) ng/mL - Radiology Data Radiology results reviewed: Yes I reviewed the patient's radiology results. Chest X-Ray 11/27/18 11:47 IMPRESSION: No acute process. D/ / Ana Luna MD / Ana Luna MD Interpreting Provider: Ana Luna MD - EKG Data EKG #1 EKG attestation: Yes I reviewed and interpreted this EKG. EKG results narrative: Normal sinus rhythm rate of 69. Normal intervals. No acute ischemic changes. When compared with prior from 11/07/18 there are no significant changes.
[2018-11-27 12:05] LABS: Basophils # 0.1 K/mcL (0.0-0.2); Basophils % 0.3 %; Eosinophils % 0.1 %; Hematocrit 43.8 % (35.3-44.9); Hemoglobin 13.3 g/dL (11.5-15.4); Immature Granulocytes % 0.8 % (0-4); Lymphocytes # 2.7 K/mcL (0.6-4.6); Lymphocytes % 15.4 %; Mean Corpuscular HGB Conc 30.4 g/dL (31.6-35.5); Mean Corpuscular Hemoglobin 23.9 pg (28.0-33.3); Mean Corpuscular Volume 78.8 fL (83.0-100.0); Mean Platelet Volume 9.8 fL (9.4-12.4); Monocytes # 1.2 K/mcL (0.0-1.3); Monocytes % 6.7 %; Neutrophils # 13.2 K/mcL (1.6-8.9); Platelet Count 348 K/mcL (140-400); Red Blood Count 5.56 M/mcL (3.82-4.97); Red Cell Distribution Width 18.1 % (11.5-14.5); Segmented Neutrophils % 76.7 %
[2018-11-27 12:16] LABS: INR 0.9; Prothrombin Time 10.4 Seconds (9.4-12.1)
[2018-11-27] MEDS ORDERED: Ipratropium/Albuterol Neb 3 ML IH ONE (12:17)
[2018-11-27 12:18] LABS: Activated Partial Thrombo Time 26.1 Seconds (26.0-36.0)
[2018-11-27 12:25] LABS: BUN/Creatinine Ratio 23 (6-26); Blood Urea Nitrogen 31 mg/dL (8-23); Calcium 9.8 mg/dL (8.6-10.3); Carbon Dioxide 29 mEq/L (23-29); Chloride 101 mEq/L (98-107); Glucose 49 mg/dL (70-105); Osmolality,Calculated 294 (280-300); Potassium 3.8 mEq/L (3.5-5.1); Sodium 140 mEq/L (136-145); Troponin I < 0.03 ng/mL (< 0.04); eGFR For Non-African Americans 38 (> 60)
[2018-11-27] MEDS ORDERED: Ondansetron 4 MG/2 ML VIAL IVP PRN (14:00)
[2018-11-27] MEDS ORDERED: Naloxone 0.4 MG/ML INJ IVP PRN (14:00)
[2018-11-27] MEDS ORDERED: Mag Hydrox/Al Hydrox/Simeth 30 ML UDC PO PRN (14:00)
[2018-11-27] MEDS ORDERED: *HR* Promethazine 25 MG/ML VIAL IVP PRN (14:00)
[2018-11-27] MEDS ORDERED: traMADol 50 MG TABLET PO PRN (14:00)
--- NOTE | 2018-11-27 14:11 | Internal Med History&Physical ---
Date of Encounter: 11/27/18 Time of Encounter: 14:05 Internal Medicine - H&P: HPI Admitted From: Home Plans for Post Hospital Care: Home History of present illness: Ms. Miller is a 78 year old female with past medical history of COPD, asthma, TIA, IgG deficiency, hypoglycemia presented with several episode of syncope. Per patient, she went to see pulmonology this morning, and then was found lost of consciousness, however, this event was not been witnessed. While in the hospital waiting area, she was found to have several more episode of syncope and subsequently was brought to the ED. Labs showed low blood sugar at 40. She received 1 dose of D50. She also was found to have shortness of breath upon arrival to the ED, 1 dose of DuoNeb was administered. Port improvement of symptoms. She denies any history of hypo-glycemia. She reported had a breakfast this morning. She has knowing history of COPD/bronchial spasm was treated with bronchodilators. She was hospitalized last month for dyspnea and was discharged home with oral steroids, she reported she took tapering dose of steroid and currently on 20 mg prednisone daily. In the ED, her blood pressure was elevated, besides a low blood sugar, labs revealed baseline elevation of BUN/creatinine at creatinine. Her EKG was unremarkable without acute ST-T change. Chest x-ray has not no acute pathologies. Patient is admitted for further evaluation, CODE STATUS discussed with patient, she prefers full code. Past Med Surg Social Fam HX - Past Medical History Medical history: arthritis, asthma, COPD, GERD, hypertension, renal disease, TIA Additional medical history: sleep apnea Psychiatric history: no psych history - Past Surgical History Surgical History: appendectomy, cholecystectomy, hysterectomy, knee replacement, sinus surgery, other Additional surgical history: Ehsan, Bladder Tuck - Social History Smoking Status: Never smoker Smokeless Tobacco Status: No Alcohol use: none Drug use: none - Family History Mother Adopted: No Family Member Ethnicity: Non- Living Status: Hx Family Cardiac Disorders: Yes Internal Medicine - H&P: Meds Dexlansoprazole [Dexilant] 60 mg PO DAILY 06/13/15 [History] Mometasone Furoate [Nasonex] 2 spray NS DAILY 12/26/16 [History] Oxygen 2 l NS HS 12/26/16 [History] Albuterol Sulfate [Ventolin Hfa] 2 puff IH Q4H PRN 03/05/17 [History] Montelukast [Singulair] 10 mg PO HS 03/05/17 [History] Sucralfate [Carafate] 1 gm PO HS 06/04/18 [History] Alprazolam [Xanax] 1 mg PO HS 11/08/18 [History] Cholecalciferol (D-3) [Vitamin D] 1,000 unit PO DAILY 11/08/18 [History] Clopidogrel [Plavix] 75 mg PO DAILY 11/08/18 [History] Duloxetine HCl [Cymbalta] 60 mg PO BID 11/08/18 [History] Folic Acid 1 tab PO DAILY 11/08/18 [History] Furosemide [Lasix] 80 mg PO QAM 11/08/18 [History] Magnesium Oxide [Magnesium] 400 mg PO BID 11/08/18 [History] Potassium Chloride [K-Tab ER] 40 meq PO DAILY 11/08/18 [History] Sennosides [Senokot] 17.2 mg PO DAILY 11/08/18 [History] Calcitriol [Rocaltrol] 0.25 mcg PO QMWF 11/13/18 [History] Levalbuterol [Xopenex INH] 45 gm IH BID 11/13/18 [History] Magic Mouthwash 5 ml PO Q4HR #240 ml 11/13/18 [Rx] Tramadol HCl [Ultram] 50 mg PO QID PRN 11/13/18 [History] Allergy/AdvReac Type Severity Reaction Status Date / Time atorvastatin [From Lipitor] Allergy Hives Verified 11/13/18 09:09 cephalexin Allergy Hives Verified 11/13/18 09:09 hydrocodone Allergy Hives Verified 11/13/18 09:09 Penicillins [PCN] Allergy Hives Verified 11/13/18 09:09 ropinirole [From Requip] Allergy Unresponsiv Verified 11/13/18 09:09 e All Systems PM: A 10-system review of systems was performed and is negative for pertinent findings except as documented above in the HPI. Review of systems: REVIEW OF SYSTEMS: CONSTITUTIONAL: No weight loss, fever, chills, weakness or fatigue. HEENT: Eyes: No visual loss, blurred vision, double vision or yellow sclerae. Ears, Nose, Throat: No hearing loss, sneezing, congestion, runny nose or sore throat. SKIN: No rash or itching. CARDIOVASCULAR: No chest pain, chest pressure or chest discomfort. No palpitations or edema. RESPIRATORY: No cough or sputum. see HPI. GASTROINTESTINAL: No anorexia, nausea, vomiting or diarrhea. No abdominal pain or blood. GENITOURINARY: No dysuria, urgency, or frequency. NEUROLOGICAL: No headache, dizziness, syncope, paralysis, ataxia, numbness or tingling in the extremities. No change in bowel or bladder control. MUSCULOSKELETAL: No muscle, back pain, joint pain or stiffness. HEMATOLOGIC: No anemia, bleeding or bruising. LYMPHATICS: No enlarged nodes. No history of splenectomy. PSYCHIATRIC: No history of depression or anxiety. ENDOCRINOLOGIC: No reports of sweating, cold or heat intolerance. No polyuria or polydipsia. - Constitutional Vitals: Temp Pulse Resp BP Pulse Ox 97.9 F 58 18 150/66 96 11/27/18 11:43 11/27/18 13:26 11/27/18 13:26 11/27/18 13:26 11/27/18 13:26 General appearance: Present: A&O X 3 Exam: PHYSICAL EXAMINATION: GENERAL APPEARANCE: The patient is alert, oriented and in no acute distress. HEENT: Head is normocephalic. The sinuses are nontender. Pupils are equal and reactive. The nares are patent. Oropharynx clear without lesions. NECK: Supple without lymphadenopathy. HEART: Regular rate and rhythm. LUNGS: No crackles or wheezes are heard. ABDOMEN: Soft, nontender, nondistended with good bowel sounds heard. Inguinal area is normal. EXTREMITIES: Without cyanosis, clubbing or edema. NEUROLOGICAL: Gross nonfocal. SKIN: Warm and dry without any rash. Internal Med - H&P Results - Labs CBC & Chem 7: 11/27/18 11:50 11/27/18 11:50 Labs: Short CBC 11/27/18 Range/Units 11:50 WBC 17.2 H (4.3-11.1) K/mcL Hgb 13.3 (11.5-15.4) g/dL Hct 43.8 (35.3-44.9) % Plt Count 348 (140-400) K/mcL Neutrophils # 13.2 H (1.6-8.9) K/mcL BMP 11/27/18 11:50 Sodium 140 Potassium 3.8 Chloride 101 Carbon Dioxide 29 BUN 31 H Creatinine 1.36 H Glucose 49 L Calcium 9.8 Cardiac Enzymes 11/27/18 Range/Units 11:50 Troponin I < 0.03 (< 0.04) ng/mL - Impressions ITS Impressions Chest X-Ray 11/27/18 11:47 IMPRESSION: No acute process. D/ / Ana Luna MD / Ana Luna MD Interpreting Provider: Ana Luna MD - Assessment and Plan (1) Syncope Current Visit: Yes Status: Acute Assessment and plan: unkown etiology. Pt recently underwent extensive workup for dyspnea. ECHO showed normal EF. Stress tests were negative for ischemia or infarct. PFT showed mild restrictive disease not responding to bronchodilators. VS were stable upon arrival. Labs showed Low BG. Symptoms improved with IV D50 and Duoneb. Continue cycling trop, tele monitoring, and EKG as needed. Carotid doppler. No needs to repeat ECHO. Qualifiers: Syncope type: unspecified Qualified Code(s): R55 - Syncope and collapse (2) Hypoglycemia Current Visit: Yes Status: Acute Assessment and plan: unclear etiology, no Hx of hypoglycemia, on the contrary, her BG was notably high in the past. On oral steroid currently. Monitor BG. (3) CKD (chronic kidney disease), stage III Current Visit: No Status: Chronic Assessment and plan: Cr stable. (4) COPD (chronic obstructive pulmonary disease) Current Visit: No Status: Chronic Assessment and plan: stable, continue home meds. Qualifiers: COPD type: COPD with acute exacerbation Qualified Code(s): J44.1 - Chronic obstructive pulmonary disease with (acute) exacerbation (5) IgG deficiency Current Visit: No Status: Chronic Assessment and plan: f/u with onc as outpt with IV IGG infusion monthly. (6) DVT prophylaxis Current Visit: No Status: Acute Assessment and plan: Heparin sq. - Time Spent With Patient Total time spent is greater than 50% in coordination of care (as documented) at patient's floor/unit and/or counseling patient: Greater than 35 minutes
[2018-11-27] MEDS ORDERED: Ipratropium/Albuterol Neb 3 ML IH PRN (14:22)
[2018-11-27] MEDS: Acetaminophen 325 MG TABLET PO PRN (15:51)
[2018-11-27] MEDS: Ipratropium/Albuterol Neb 3 ML IH SCH ×3 (16:36→23:39)
[2018-11-27] MEDS ORDERED: Perflutren Lipid Microsphere 1.3 ML in 0.9 % Sodium Chloride 8.7 ML IVP ONE (18:23)
[2018-11-27] MEDS: ALPRAZolam 1 MG TABLET PO SCH (21:00)
[2018-11-28] MEDS: predniSONE 20 MG TABLET PO SCH ×2 (00:18→09:54)
[2018-11-28 01:19] LABS: Potassium 3.3 mEq/L (3.5-5.1)
[2018-11-28] MEDS: Ipratropium/Albuterol Neb 3 ML IH SCH ×6 (03:51→23:35)
--- NOTE | 2018-11-28 11:41 | Neurology - Consult Note ---
Date of Encounter: 11/28/18 Time of Encounter: 13:33 Assessment and Plan (1) Syncope Current Visit: Yes Status: Acute - Per chart review patient has had multiple syncopal episodes leading up to admission - Patient is unable to recall ever passing out and also denies syncopal episodes - Etiology is unclear maybe multifactorial including hypoglycemia, hypoxia secondary to COPD - She does have a history of CVA/TIA events but is no focal deficits at this time - Chest x-ray shows no acute process but no other imaging was obtained Plan - We will obtain CT head without contrast - At this time, unlikely that symptoms were brought on by neurologic cause. We will obtain CT of the head to rule out any TIA like symptoms however suspect that this is more likely related to metabolic process including both hypoglycemia as well as known poor respiratory status. Qualifiers: Syncope type: unspecified Qualified Code(s): R55 - Syncope and collapse (2) COPD (chronic obstructive pulmonary disease) Current Visit: Yes Status: Chronic - Known history of COPD and follows [facility] - Recently admitted in October 2018 with COPD exacerbation - Patient reports that she has not had return to baseline respiratory status and still on long taper of prednisone - Currently tolerating room air - Given patient's history of present illness, suspect that hypoxia may be playing a role in syncopal episode - Further management per primary team Qualifiers: COPD type: emphysema Emphysema type: unspecified Qualified Code(s): J43.9 - Emphysema, unspecified (3) Hypoglycemia Current Visit: Yes Status: Resolved - Noted to be hypoglycemic on presentation with blood sugar of 40 - Patient denies previous symptoms or previous hypoglycemic events - Suspected may be an aspect poor oral intake - May be related to or in combination to presenting symptoms syncope History of Present Illness Chief complaint: Syncopal episode HPI: Ms. 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 Patient states that she was on her way to a pulmonology appointment for follow- up on her COPD when she was walking and felt as if she was not going to make it. She reports that her breathing was bothering her and she leaned up against a wall at which point a rapid response was called and she was transported to the emergency room. She does not remember losing consciousness and her who is present at bedside corroborates this history. She also reports that she was witnessed having multiple other syncopal events in the emergency room but again she does not remember these either. She denies any gaps in memory. This has never happened in the past. Of note, patient was admitted on 11/07/18 from pulmonology office due to a COPD exacerbation. She states that she has been on a long taper of steroids since discharge. She states that her breathing has not yet fully recovered and she continues to be dyspneic on exertion. She denies any symptoms of fevers, chills, nausea, vomiting and no cough. She does admit to some chest pain which is chronic for her and secondary to her COPD. She denies changes in bowel or bladder movements as well as weakness, numbness, tingling, focal deficits, slurred speech. She does state that she has some blurry vision but also believe she needs new glasses. In the emergency department, vital signs were significant for a blood pressure 193/89, otherwise within normal limits. Laboratory results were significant for leukocytosis of 17.2 as well as baseline kidney function. She was also noted to be hypoglycemic with a blood sugar of 40. Patient states that she has never had issues with hypoglycemia in the past. Patient and state that she may not have eaten as much as usual having only one piece of toast previously that morning. Chest x-ray in the emergency department showed no acute process. Neurology was consulted for syncopal episode. Today during exam, patient states that she is back to baseline as this time and has no complaints. Past Med Surg Social Fam HX - Past Medical History Medical history: arthritis, asthma, COPD, GERD, hypertension, renal disease, TIA Additional medical history: sleep apnea Psychiatric history: no psych history - Past Surgical History Surgical History: appendectomy, cholecystectomy, hysterectomy, knee replacement, sinus surgery, other Additional surgical history: Ehsan, Bladder Tuck - Social History Smoking Status: Never smoker Smokeless Tobacco Status: No Alcohol use: none Drug use: none - Family History Mother Adopted: No Family Member Ethnicity: Non- Living Status: Hx Family Cardiac Disorders: Yes Medications and Allergies Dexlansoprazole [Dexilant] 60 mg PO DAILY 06/13/15 [History] Mometasone Furoate [Nasonex] 2 spray NS DAILY 12/26/16 [History] Oxygen 2 l NS HS 12/26/16 [History] Albuterol Sulfate [Ventolin Hfa] 2 puff IH Q4H PRN 03/05/17 [History] Montelukast [Singulair] 10 mg PO HS 03/05/17 [History] Sucralfate [Carafate] 1 gm PO HS 06/04/18 [History] Alprazolam [Xanax] 3 mg PO HS 11/08/18 [History] Cholecalciferol (D-3) [Vitamin D] 1,000 unit PO DAILY 11/08/18 [History] Clopidogrel [Plavix] 75 mg PO DAILY 11/08/18 [History] Duloxetine HCl [Cymbalta] 60 mg PO BID 11/08/18 [History] Folic Acid 1 tab PO DAILY 11/08/18 [History] Furosemide [Lasix] 80 mg PO QAM 11/08/18 [History] Magnesium Oxide [Magnesium] 400 mg PO BID 11/08/18 [History] Potassium Chloride [K-Tab ER] 40 meq PO DAILY 11/08/18 [History] Sennosides [Senokot] 17.2 mg PO DAILY 11/08/18 [History] Calcitriol [Rocaltrol] 0.25 mcg PO QMWF 11/13/18 [History] Levalbuterol [Xopenex INH] 45 gm IH BID 11/13/18 [History] Magic Mouthwash 5 ml PO Q4HR #240 ml 11/13/18 [Rx] Tramadol HCl [Ultram] 50 mg PO QID PRN 11/13/18 [History] predniSONE [PredniSONE] 10 mg PO AD 11/27/18 [History] Allergy/AdvReac Type Severity Reaction Status Date / Time atorvastatin [From Lipitor] Allergy Hives Verified 11/13/18 09:09 cephalexin Allergy Hives Verified 11/13/18 09:09 hydrocodone Allergy Hives Verified 11/13/18 09:09 Penicillins [PCN] Allergy Hives Verified 11/13/18 09:09 ropinirole [From Requip] Allergy Unresponsiv Verified 11/13/18 09:09 e All Systems: The remainder of the systems were reviewed and are negative Review of Systems: - Constitutional: Denies fevers, chills, weight loss, generalized fatigue - Head/Neck: Denies PEÑA, neck stiffness - EENT: Denies vision changes/blurriness, tinnitus, auditory changes, rhinorrhea, congestion, sore throat, odynaphagia - CVS: Denies chest pain, palpitations,edema, - Pulm: Admits to shortness of breath on exertion. Denies cough, sputum, hematemesis, wheezing - GI: Denies abdominal pain, anorexia, nausea, vomiting, diarrhea, constipation, melena - : Denies dysuria, increased frequency, urgency, hematuria, - MSK: Denies joint pain, limited ROM - Skin: Denies rashes, ulcers, color changes, - Neuro: Denies PEÑA, paresthesias, focal deficits, ataxia, Physical Examination - Vital Signs Vital Signs: Initial Vital Signs Temp Pulse Resp BP Pulse Ox 97.9 F 70 18 193/89 95 11/27/18 11:43 11/27/18 11:43 11/27/18 11:43 11/27/18 11:43 11/27/18 11:43 - Constitutional General appearance: comfortable, younger than stated age - Neurologic Sensorimotor examination: intact Detailed motor examination: grossly full strength in all extremities Motor examination - right side: 5/5: deltoids, biceps, triceps, gear finisher, hip flexors, tibialis Anterior, quadriceps, toe extension (EHL), plantarflexion Motor examination - left side: 5/5: deltoids, biceps, triceps, hip flexors, gear finisher, quadriceps, tibialis Anterior, toe extension (EHL), plantarflexion Detailed sensory examination: intact Reflexes: Biceps: 2+, Patella: 2+ Mental Status Examination: awake, alert, oriented to person, oriented to place, oriented to time, follows commands appropriately, answers questions appropriately, no aphasia Cranial nerve examination: PERRL, EOMI, visual mederos intact, sensory to face intact, no facial asymmetry is present, no dysarthria, hearing is intact symmetrically, soft palate elevates bilaterally upon phonation, flexes SCM and trapezius muscles symmetrically with full power, tongue protrudes midline, no atrophy or facial fasiculations present Cerebellar examination: performs finger to nose and heel to talley symmetrically without ataxia Results - Laboratory Findings CBC and BMP: 11/27/18 11:50 11/28/18 00:06 Abnormal lab findings: Abnormal lab results WBC 17.2 K/mcL (4.3-11.1) H 11/27/18 11:50 RBC 5.56 M/mcL (3.82-4.97) H 11/27/18 11:50 MCV 78.8 fL (83.0-100.0) L 11/27/18 11:50 MCH 23.9 pg (28.0-33.3) L 11/27/18 11:50 MCHC 30.4 g/dL (31.6-35.5) L 11/27/18 11:50 RDW 18.1 % (11.5-14.5) H 11/27/18 11:50 Neutrophils # 13.2 K/mcL (1.6-8.9) H 11/27/18 11:50 Potassium 3.3 mEq/L (3.5-5.1) L 11/28/18 00:06 Carbon Dioxide 31 mEq/L (23-29) H 11/28/18 00:06 BUN 31 mg/dL (8-23) H 11/28/18 00:06 Creatinine 1.52 mg/dL (0.60-1.20) H 11/28/18 00:06 Est GFR ( Amer) 40 (> 60) L 11/28/18 00:06 Est GFR (Non-Af Amer) 33 (> 60) L 11/28/18 00:06 Glucose 120 mg/dL (70-105) H 11/28/18 00:06 POC Glucose 186 mg/dL (70-99) H 11/27/18 21:51 Consult Discharge Plan - Plan Referrals: Sander Bennett Jr, MD [Primary Care Provider] -
[2018-11-28] MEDS: 0.9 % Sodium Chloride 1,000 ML IVC SCH (12:30)
[2018-11-28 14:03] LABS: Basophils % 0.1 %; Hematocrit 40.7 % (35.3-44.9); Hemoglobin 12.4 g/dL (11.5-15.4); Immature Granulocytes % 0.9 % (0-4); Lymphocytes # 0.5 K/mcL (0.6-4.6); Lymphocytes % 4.1 %; Mean Corpuscular HGB Conc 30.5 g/dL (31.6-35.5); Mean Corpuscular Hemoglobin 24.4 pg (28.0-33.3); Mean Platelet Volume 9.7 fL (9.4-12.4); Monocytes # 0.1 K/mcL (0.0-1.3); Monocytes % 0.7 %; Neutrophils # 10.7 K/mcL (1.6-8.9); Platelet Count 248 K/mcL (140-400); Red Blood Count 5.09 M/mcL (3.82-4.97); Red Cell Distribution Width 16.9 % (11.5-14.5); Segmented Neutrophils % 94.2 %
--- NOTE | 2018-11-28 16:22 | Internal Med Progress Note ---
Hospitalist Progress Note - Encounter Date of Encounter: 11/28/18 Time of Encounter: 16:20 - Subjective Interval History: Patient sitting on chair. No episode of syncope since admission. Review of the lab with trending down at count, low potassium, trending up creatinine level. Carotid ultrasound report awaited. Blood glucose level reviewed with no h ypoglycemia Patient has shortness of breath but thinks back to baseline as she has chronic shortness of breath secondary to advance COPD and has been following Dr. Montez. Denies fever chills nausea vomiting headache dizziness chest pain abdominal pain urinary bowel complaint - Exam Vitals: Temp Pulse Resp BP Pulse Ox 97.7 F 73 18 136/77 97 11/28/18 14:53 11/28/18 14:53 11/28/18 15:42 11/28/18 14:53 11/28/18 15:42 Exam: PHYSICAL EXAMINATION: GENERAL APPEARANCE: The patient is alert, oriented and in no acute distress. HEENT: Head is normocephalic. The sinuses are nontender. Pupils are equal and reactive. NECK: Supple HEART: Regular rate and rhythm. LUNGS: No crackles or wheezes are heard. ABDOMEN: Soft, nontender, nondistended with good bowel sounds heard. EXTREMITIES: Without cyanosis, clubbing or edema. NEUROLOGICAL: No focal neurological deficit. Motor 5 x 5 on all 4 extremities SKIN: Warm and dry without any rash. - Assessment and Plan (1) Syncope Current Visit: Yes Status: Acute Assessment and Plan: unkown etiology. Pt recently underwent extensive workup for dyspnea. ECHO done 1211 2017 showed normal EF. Stress tests were negative for ischemia or infarct. PFT showed mild restrictive disease not responding to bronchodilators. VS were stable upon arrival. Labs showed low blood glucose level-40 Symptoms improved with IV D50 and Duoneb. Neurologist consulted who ordered CT head without contrast and think more likely related to metabolic process including both hypoglycemia as well as known poor respiratory status Carotid Doppler ultrasound report is awaited. No need to repeat echo (2) IgG deficiency Current Visit: No Status: Chronic Assessment and Plan: f/u with onc as outpt with IV IGG infusion monthly. (3) CKD (chronic kidney disease), stage III Current Visit: No Status: Chronic Assessment and Plan: Cr trending up. Will monitor creatinine level. Avoid nephrotoxic drug. Will consider consulting nephrologists if further worsening. Continue home medicine including Lasix (4) COPD (chronic obstructive pulmonary disease) Current Visit: Yes Status: Chronic Assessment and Plan: Chronic COPD. Patient has chronic respiratory distress but no acute episode at this time. Patient follow pulmonologists. Will continue tapering steroid dose and supposed to be on 40 mg prednisone at present. Will consult qa tech if any concern. (5) Hypoglycemia Current Visit: Yes Status: Resolved Assessment and Plan: unclear etiology, no Hx of hypoglycemia, on the contrary, her BG was notably high in the past. On oral steroid currently. No hypoglycemic events since admission. Continue to monitor blood glucose level. (6) DVT prophylaxis Current Visit: No Status: Acute Assessment and Plan: Heparin sq. (7) Goals of care, counseling/discussion Current Visit: Yes Status: Acute Assessment and Plan: Will plan to discharge patient to get care from neurology and not concerning creatinine level. Blood culture with no growth yet. - Time Spent with Patient Total time spent is greater than 50% in coordination of care (as documented) at patient's floor/unit and/or counseling patient: 25 - 35 minutes Plan of Care Discussed with: patient Internal Medicine: Result - Labs CBC & Chem 7: 11/28/18 13:34 11/28/18 00:06 Labs: Short CBC 11/28/18 Range/Units 13:34 WBC 11.4 H (4.3-11.1) K/mcL Hgb 12.4 (11.5-15.4) g/dL Hct 40.7 (35.3-44.9) % Plt Count 248 (140-400) K/mcL Neutrophils # 10.7 H (1.6-8.9) K/mcL BMP 11/28/18 00:06 Sodium 139 Potassium 3.3 L Chloride 101 Carbon Dioxide 31 H BUN 31 H Creatinine 1.52 H Glucose 120 H Calcium 9.0 Cardiac Enzymes 11/27/18 11/28/18 Range/Units 17:55 00:06 Troponin I < 0.03 < 0.03 (< 0.04) ng/mL - ABG Interpretation ABG results: PT/INR, D-dimer PT 10.4 Seconds (9.4-12.1) 11/27/18 11:50 Consult Discharge Plan - Plan Referrals: Sander Bennett Jr, MD [Primary Care Provider] - (1) Syncope Qualifiers: Syncope type: unspecified Qualified Code(s): R55 - Syncope and collapse (4) COPD (chronic obstructive pulmonary disease) Qualifiers: COPD type: emphysema Emphysema type: unspecified Qualified Code(s): J43.9 - Emphysema, unspecified
[2018-11-28] MEDS ORDERED: traMADol 50 MG TABLET PO PRN (16:29)
[2018-11-28] MEDS: Acetaminophen 325 MG TABLET PO PRN (16:42)
[2018-11-28] MEDS: Levalbuterol 1 PUFF INHALER IH SCH (19:48)
[2018-11-28] MEDS: ALPRAZolam 1 MG TABLET PO SCH (20:31)
[2018-11-28] MEDS: Magnesium Oxide 400 MG TABLET PO SCH (20:31)
[2018-11-28] MEDS: Magic Mouthwash 10 ML UD Cup PO SCH (20:31)
[2018-11-28] MEDS ORDERED: Sucralfate 1 GM TABLET PO SCH (21:00)
[2018-11-29] MEDS: Magic Mouthwash 10 ML UD Cup PO SCH ×3 (01:06→09:00)
[2018-11-29] MEDS: 0.9 % Sodium Chloride 1,000 ML IVC SCH (02:38)
[2018-11-29] MEDS: Ipratropium/Albuterol Neb 3 ML IH SCH ×2 (03:37→07:41)
[2018-11-29 05:35] LABS: Calcium 8.7 mg/dL (8.6-10.3); Potassium 3.8 mEq/L (3.5-5.1)
[2018-11-29 08:30] VITALS: BP 140/85
[2018-11-29] MEDS: Magnesium Oxide 400 MG TABLET PO SCH (08:38)
[2018-11-29] MEDS: Acetaminophen 325 MG TABLET PO PRN (08:38)
[2018-11-29] MEDS: Levalbuterol 1 PUFF INHALER IH SCH (08:41)
[2018-11-29] MEDS ORDERED: Folic Acid 1 MG TABLET PO SCH (09:00)
[2018-11-29] MEDS ORDERED: predniSONE 20 MG TABLET PO SCH (09:00)
[2018-11-29] MEDS ORDERED: Sennosides 8.6 MG TABLET PO SCH (09:00)
[2018-11-29] MEDS ORDERED: NON-FORMULARY MEDICATION 1 EACH EACH (Dexlansoprazole [Dexilant] 60 MG) PO SCH (09:00)
[2018-11-29] MEDS ORDERED: Furosemide 40 MG TABLET PO SCH (09:00)
[2018-11-29] MEDS ORDERED: Fluticasone Propionate Nasal 50 MCG/SPRAY BOTTLE NS SCH (09:00)
[2018-11-29] MEDS ORDERED: Cholecalciferol (D-3) 1,000 UNIT TABLET PO SCH (09:00)
--- NOTE | 2018-11-29 09:42 | Discharge Summary ---
- NOTES TO OUTPATIENT PROVIDER Notes to Outpatient Provider: Follow with primary care physician 3-5 days-follow final blood culture report-no growth yet. 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 At present prednisone 40 mg daily started on 2018 Orders not resulted at time of discharge: Pending orders 11/27/18 13:51 Culture,Blood [BC] Stat 11/30/18 04:00 BMP [Basic Metabolic Panel] AM 0400 12/01/18 04:00 BMP [Basic Metabolic Panel] AM 0400 Date of Encounter: 11/29/18 Time of Encounter: 09:38 - Discharge Diagnosis (1) Syncope Priority: Primary Status: Acute Assessment and Plan: unkown etiology but most likely related to metabolic process including both hypoglycemia as well as known poor respiratory status Pt recently underwent extensive workup for dyspnea. ECHO done 1211 2017 showed normal EF. Stress tests were negative for ischemia or infarct. PFT showed mild restrictive disease not responding to bronchodilators. VS were stable upon arrival. Labs showed low blood glucose level-40 Symptoms improved with IV D50 and Duoneb. Neurologist consulted and does not appreciate any neurological contributing factor. MRI brain with no acute finding. Carotid Doppler ultrasound with less than 60% bilateral carotid artery stenosis. Patient needs to follow-up with primary care physician. 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 (3) CKD (chronic kidney disease), stage III Priority: Secondary Status: Chronic Assessment and Plan: Cr stable. 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 Continue home Lasix and other medication. (4) COPD (chronic obstructive pulmonary disease) Priority: Secondary Status: Chronic Assessment and Plan: Chronic COPD. Patient has chronic respiratory distress but no acute episode at this time. Patient follow pulmonologists. Will continue tapering steroid dose on a weekly basis and supposed to be on 40 mg prednisone at present. Patient is back to her normal baseline respiratory status. Not requiring any oxygen supplementation and saturating in higher 90s on room air Qualifiers: COPD type: emphysema Emphysema type: unspecified Qualified Code(s): J43.9 - Emphysema, unspecified (5) Hypoglycemia Priority: Primary Status: Resolved Assessment and Plan: Once during admission. unclear etiology, no Hx of hypoglycemia, on the contrary, her BG was notably high in the past. On oral steroid currently. No hypoglycemic events since admission. Hospital course: Ms. Miller is a 78 year old female patient got admitted for further evaluation of syncope. After evaluating it was considered most likely metabolic related with one-time hypoglycemic event and also respiratory status. Neurologist was consulted and cleared from neuro standpoint. Patient recently had extensive cardiac workup therefore did not repeat an patient did not have any chest pain. Please see details in diagnosis section of discharge summary Patient is clinically and hemodynamically stable, ambulating, tolerating diet at the time of discharge. She also feels back to her baseline almost. No syncope event since admission Discharge discussed with: patient, family, nurse - Time Spent with Patient Total time spent providing and/or coordinating discharge services: Time spent: Less than 30 minutes - Discharge Medications Prescriptions: New predniSONE [PredniSONE] 40 mg PO DAILY #21 tablet Continue Dexlansoprazole [Dexilant] 60 mg PO DAILY Oxygen 2 l NS HS Mometasone Furoate [Nasonex] 2 spray NS DAILY Albuterol Sulfate [Ventolin Hfa] 2 puff IH Q4H PRN PRN Reason: Shortness Of Breath Montelukast [Singulair] 10 mg PO HS Sucralfate [Carafate] 1 gm PO HS Alprazolam [Xanax] 3 mg PO HS Cholecalciferol (D-3) [Vitamin D] 1,000 unit PO DAILY Clopidogrel [Plavix] 75 mg PO DAILY Duloxetine HCl [Cymbalta] 60 mg PO BID Folic Acid 1 tab PO DAILY Furosemide [Lasix] 80 mg PO QAM Magnesium Oxide [Magnesium] 400 mg PO BID Potassium Chloride [K-Tab ER] 40 meq PO DAILY Sennosides [Senokot] 17.2 mg PO DAILY Calcitriol [Rocaltrol] 0.25 mcg PO QMWF Magic Mouthwash 5 ml PO Q4HR #240 ml Tramadol HCl [Ultram] 50 mg PO QID PRN PRN Reason: Pain Levalbuterol [Xopenex INH] 45 gm IH BID predniSONE [PredniSONE] 10 mg PO AD Home Medications: Dexlansoprazole [Dexilant] 60 mg PO DAILY 06/13/15 [History] Mometasone Furoate [Nasonex] 2 spray NS DAILY 12/26/16 [History] Oxygen 2 l NS HS 12/26/16 [History] Albuterol Sulfate [Ventolin Hfa] 2 puff IH Q4H PRN 03/05/17 [History] Montelukast [Singulair] 10 mg PO HS 03/05/17 [History] Sucralfate [Carafate] 1 gm PO HS 06/04/18 [History] Alprazolam [Xanax] 3 mg PO HS 11/08/18 [History] Cholecalciferol (D-3) [Vitamin D] 1,000 unit PO DAILY 11/08/18 [History] Clopidogrel [Plavix] 75 mg PO DAILY 11/08/18 [History] Duloxetine HCl [Cymbalta] 60 mg PO BID 11/08/18 [History] Folic Acid 1 tab PO DAILY 11/08/18 [History] Furosemide [Lasix] 80 mg PO QAM 11/08/18 [History] Magnesium Oxide [Magnesium] 400 mg PO BID 11/08/18 [History] Potassium Chloride [K-Tab ER] 40 meq PO DAILY 11/08/18 [History] Sennosides [Senokot] 17.2 mg PO DAILY 11/08/18 [History] Calcitriol [Rocaltrol] 0.25 mcg PO QMWF 11/13/18 [History] Levalbuterol [Xopenex INH] 45 gm IH BID 11/13/18 [History] Magic Mouthwash 5 ml PO Q4HR #240 ml 11/13/18 [Rx] Tramadol HCl [Ultram] 50 mg PO QID PRN 11/13/18 [History] predniSONE [PredniSONE] 10 mg PO AD 11/27/18 [History] predniSONE [PredniSONE] 40 mg PO DAILY #21 tablet 11/29/18 [Rx] Allergies/Adverse Reactions: Allergy/AdvReac Type Severity Reaction Status Date / Time atorvastatin [From Lipitor] Allergy Hives Verified 11/13/18 09:09 cephalexin Allergy Hives Verified 11/13/18 09:09 hydrocodone Allergy Hives Verified 11/13/18 09:09 Penicillins [PCN] Allergy Hives Verified 11/13/18 09:09 ropinirole [From Requip] Allergy Unresponsiv Verified 11/13/18 09:09 e Date of admission: 11/27/18 13:46 Primary care physician: Sander Bennett Jr, MD Consults: 11/28/18 11:14 Consult to Neurology [CONS] Routine Consulting Provider: [facility] Reason for Consult: syncope Call Completed: Yes - Constitutional Vitals: Temp Pulse Resp BP Pulse Ox 97.4 F L 79 16 140/85 96 11/29/18 08:29 11/29/18 08:29 11/29/18 08:29 11/29/18 08:29 11/29/18 08:29 General appearance: Present: A&O X 3 Exam: General appearance: No acute distress, obese Head exam: Atraumatic Eye exam: EOMI, PERRLA ENT exam: Moist oral mucosa Neck nontender, supple Respiratory exam: Clear to auscultation bilaterally Cardiovascular exam: Regular rate and rhythm, no systolic murmur Abdominal exam: Soft, nontender, nondistended, positive bowel sounds Extremities exam: No calf tenderness, no pedal edema Present: Skin-no rash, warm, dry, intact Neurological exam: Alert, awake, oriented 3, CN II-XII intact, no focal deficits. No facial droop. Normal speech. Normal gait. - Patient Status Disposition: Home, Self-Care Condition: Good Overall status at discharge: patient is back to baseline - Discharge Instructions Instructions: Syncope (DC), Chronic Obstructive Pulmonary Disease (DC) Follow Up With: Sander Bennett Jr, MD [Primary Care Provider] - (Patient will need to call the office to schedule a follow up appointment. ) - Diet and Activity Activity: increase activity as tolerated Diet: advance to your usual diet
[2018-11-29 10:54] LABS: Estimated Average Glucose 140 mg/dl; Hemoglobin A1C 6.5 %
--- NOTE | 2018-11-29 11:30 | Electrocardiograph Report ---
[address] [address] Test Date: 2018-11-27 Pat Name: Beronica Miller Department: EXAM7 Room: 3A41 Gender: F Delivery Nurse: : 1940 Requested By: Federico Katz Order Number: [id number] Reading MD: Johan Wilkins Measurements Intervals Cecil Rate: 69 P: 56 IA: 150 QRS: -35 QRSD: 87 T: 56 QT: 408 QTc: 438 Interpretive Statements Sinus rhythm Possible left atrial enlargement Low voltage, precordial leads Abnormal R-wave progression Possible left ventricular hypertrophy Electronically Signed On 11-29-2018 11:28:35 EDT by Johan Wilkins
[2018-12-03] MEDS ORDERED: predniSONE 20 MG TABLET PO SCH (09:00)
== END 2018-11-29 11:45 | disposition home or self-care (01) ==
LOC: EMEROOARM 11:41 → 3ANU 11:41
PROVIDERS: ADMIT Internal Medicine; ATTEND Internal Medicine

== ENCOUNTER 2019-10-12 11:26 | Observation (INO) ==
[2019-10-12 12:22] LABS: Bilirubin,Urine Negative (Negative); Blood,Urine Negative (Negative); Clarity,Urine Clear (Clear); Color,Urine Yellow (Yellow); Glucose,Urine (UA) Normal (Normal); Ketones,Urine Negative (Negative); Leukocyte Esterase,Urine Negative (Negative); Nitrite,Urine Negative (Negative); Protein,Urine Negative (Neg-Trace); Specific Gravity,Urine 1.009 (1.010-1.025); Urobilinogen,Urine Normal (Normal)
[2019-10-12] MEDS ORDERED: Ipratropium/Albuterol Neb 3 ML IH ONE (12:25)
[2019-10-12] MEDS ORDERED: methylPREDNISolone 125 MG/2 ML VIAL IVP ONE (12:26)
[2019-10-12 12:49] LABS: Hematocrit 43.9 % (35.3-44.9); Hemoglobin 13.9 g/dL (11.5-15.4); Mean Corpuscular HGB Conc 31.7 g/dL (31.6-35.5); Mean Corpuscular Hemoglobin 27.9 pg (28.0-33.3); Mean Platelet Volume 9.5 fL (9.4-12.4); Platelet Count 162 K/mcL (140-400); Red Blood Count 4.99 M/mcL (3.82-4.97); Red Cell Distribution Width 13.6 % (11.5-14.5); White Blood Count 4.8 K/mcL (4.3-11.1)
[2019-10-12 13:32] LABS: Lymphocytes # 1.5 K/mcL (0.6-4.6); Monocytes # 0.5 K/mcL (0.0-1.3); Neutrophils # 2.8 K/mcL (1.6-8.9); Platelet Estimate Normal (Normal); Reactive Lymphocytes Present (Not Present)
[2019-10-12 13:37] LABS: BUN/Creatinine Ratio 17 (6-26); Blood Urea Nitrogen 21 mg/dL (8-23); Calcium 9.8 mg/dL (8.6-10.3); Carbon Dioxide 34 mEq/L (23-29); Chloride 97 mEq/L (98-107); Glucose 100 mg/dL (70-105); Osmolality,Calculated 289 (280-300); Potassium 4.2 mEq/L (3.5-5.1); Sodium 138 mEq/L (136-145); Troponin I < 0.03 ng/mL (< 0.04); eGFR For African Americans 52 (> 60); eGFR For Non-African Americans 43 (> 60)
[2019-10-12] MEDS ORDERED: Azithromycin 500 MG in D5% in Water 250 ML IVPB STA (14:28)
[2019-10-12] MEDS ORDERED: cefTRIAXone 1,000 MG in Water for inj. (sterile) 10 ML IVP ONE (14:41)
[2019-10-12] MEDS ORDERED: Naloxone 0.4 MG/ML INJ IVP PRN (15:32)
[2019-10-12] MEDS: Menthol 9.1 MG LOZENGE PO PRN (16:44)
[2019-10-12] MEDS: GuaiFENesin Liq 200 MG/10 ML UDC PO PRN ×2 (16:50→23:20)
[2019-10-12] MEDS: *HR* Heparin 5,000 UNIT/ML VIAL SQ SCH (17:04)
[2019-10-12] MEDS: Ipratropium/Albuterol Neb 3 ML IH SCH ×3 (19:28→23:21)
[2019-10-12] MEDS: Budesonide/Formoterol 160/4.5 1 PUFF INH IH SCH (19:35)
[2019-10-12] MEDS: Sucralfate 1 GM TABLET PO SCH (20:14)
[2019-10-12] MEDS: ALPRAZolam 1 MG TABLET PO PRN (20:17)
[2019-10-13] MEDS: Ipratropium/Albuterol Neb 3 ML IH SCH ×6 (03:07→23:53)
[2019-10-13 05:14] LABS: Basophils % 0.6 %; Hematocrit 39.1 % (35.3-44.9); Hemoglobin 12.7 g/dL (11.5-15.4); Immature Granulocytes % 1.5 % (0-4); Lymphocytes # 1.4 K/mcL (0.6-4.6); Lymphocytes % 40.4 %; Mean Corpuscular HGB Conc 32.5 g/dL (31.6-35.5); Mean Corpuscular Hemoglobin 28.3 pg (28.0-33.3); Mean Corpuscular Volume 87.1 fL (83.0-100.0); Mean Platelet Volume 9.6 fL (9.4-12.4); Monocytes # 0.5 K/mcL (0.0-1.3); Platelet Count 154 K/mcL (140-400); Red Blood Count 4.49 M/mcL (3.82-4.97); Red Cell Distribution Width 13.4 % (11.5-14.5); Segmented Neutrophils % 42.5 %; White Blood Count 3.4 K/mcL (4.3-11.1)
[2019-10-13] MEDS: *HR* Heparin 5,000 UNIT/ML VIAL SQ SCH ×2 (05:16→17:11)
[2019-10-13] MEDS: methylPREDNISolone 125 MG/2 ML VIAL IVP SCH ×2 (05:16→17:11)
[2019-10-13 05:37] LABS: Neutrophils # 1.5 K/mcL (1.6-8.9)
[2019-10-13 05:39] LABS: Calcium 9.3 mg/dL (8.6-10.3)
[2019-10-13 06:23] LABS: Platelet Estimate Normal (Normal); Reactive Lymphocytes Present (Not Present)
[2019-10-13] MEDS: cefTRIAXone 1,000 MG in Water for inj. (sterile) 10 ML IVP SCH (07:46)
[2019-10-13] MEDS: Sennosides 8.6 MG TABLET PO SCH (07:47)
[2019-10-13] MEDS: Loratadine 10 MG TABLET PO SCH (07:47)
[2019-10-13] MEDS: Folic Acid 1 MG TABLET PO SCH (07:47)
[2019-10-13] MEDS: Furosemide 40 MG TABLET PO SCH (07:47)
[2019-10-13] MEDS: Cholecalciferol (D-3) 1,000 UNIT (25MCG) TABLET PO SCH (07:48)
[2019-10-13] MEDS: GuaiFENesin Liq 200 MG/10 ML UDC PO PRN ×2 (07:56→21:26)
[2019-10-13] MEDS: Budesonide/Formoterol 160/4.5 1 PUFF INH IH SCH ×2 (08:33→20:33)
[2019-10-13] MEDS ORDERED: NON-FORMULARY MEDICATION 1 EACH EACH (Tiotropium Bromide [Spiriva Respimat] 2 PUFF) PO SCH (09:00)
[2019-10-13] MEDS ORDERED: Nystatin SUSP 5 ML UD.LIQ PO PRN (10:12)
[2019-10-13 11:34] LABS: Adenovirus Not Detected (Not Detect); Bordetella Pertussis Not Detected (Not Detect); Chlamydophila pneumoniae Not Detected (Not Detect); Coronavirus 229E Not Detected (Not Detect); Coronavirus HKU1 Not Detected (Not Detect); Coronavirus NL63 Not Detected (Not Detect); Coronavirus OC43 Not Detected (Not Detect); Human Metapneumovirus Not Detected (Not Detect); Human Rhinovirus/Enterovirus Not Detected (Not Detect); Influenza B Not Detected (Not Detect); Mycoplasma pneumoniae Not Detected (Not Detect); Parainfluenza Virus 1 Not Detected (Not Detect); Parainfluenza Virus 2 Not Detected (Not Detect); Parainfluenza Virus 3 Not Detected (Not Detect); Parainfluenza Virus 4 Not Detected (Not Detect); Respiratory Syncytial Virus Not Detected (Not Detect)
[2019-10-13 11:35] LABS: Influenza A Subtype 2009 H1 DETECTED (Not Detect)
[2019-10-13] MEDS ORDERED: Acetaminophen 325 MG TABLET PO STA (11:37)
[2019-10-13] MEDS: Menthol 9.1 MG LOZENGE PO PRN (11:49)
[2019-10-13] MEDS: levoFLOXacin 750 MG/150 ML 750 MG/150 ML BAG IVPB SCH (15:28)
[2019-10-13] MEDS ORDERED: Azithromycin 500 MG in 0.9 % Sodium Chloride 250 ML IVPB SCH (16:00)
[2019-10-13] MEDS ORDERED: Acetaminophen 325 MG TABLET PO PRN (18:00)
[2019-10-13] MEDS: Sucralfate 1 GM TABLET PO SCH (20:55)
[2019-10-14] MEDS: Menthol 9.1 MG LOZENGE PO PRN (01:55)
[2019-10-14] MEDS: Benzonatate 100 MG CAPSULE PO PRN ×2 (02:33→10:51)
[2019-10-14] MEDS: Ipratropium/Albuterol Neb 3 ML IH SCH ×6 (03:47→23:58)
[2019-10-14] MEDS: methylPREDNISolone 125 MG/2 ML VIAL IVP SCH ×2 (05:23→16:55)
[2019-10-14] MEDS: *HR* Heparin 5,000 UNIT/ML VIAL SQ SCH ×2 (05:24→16:55)
[2019-10-14 05:55] LABS: Hematocrit 42.5 % (35.3-44.9); Hemoglobin 13.2 g/dL (11.5-15.4); Mean Corpuscular HGB Conc 31.1 g/dL (31.6-35.5); Mean Corpuscular Hemoglobin 27.7 pg (28.0-33.3); Mean Corpuscular Volume 89.1 fL (83.0-100.0); Mean Platelet Volume 10.1 fL (9.4-12.4); Platelet Count 196 K/mcL (140-400); Red Blood Count 4.77 M/mcL (3.82-4.97); Red Cell Distribution Width 13.7 % (11.5-14.5)
[2019-10-14 05:56] LABS: White Blood Count 5.4 K/mcL (4.3-11.1)
[2019-10-14 06:19] LABS: Calcium 9.8 mg/dL (8.6-10.3); Potassium 4.1 mEq/L (3.5-5.1)
[2019-10-14] MEDS: cefTRIAXone 1,000 MG in Water for inj. (sterile) 10 ML IVP SCH (08:07)
[2019-10-14] MEDS: Folic Acid 1 MG TABLET PO SCH (08:08)
[2019-10-14] MEDS: Furosemide 40 MG TABLET PO SCH (08:08)
[2019-10-14] MEDS: Sennosides 8.6 MG TABLET PO SCH (08:08)
[2019-10-14] MEDS: calcitrioL 0.25 MCG CAPSULE PO SCH (08:09)
[2019-10-14] MEDS: Cholecalciferol (D-3) 1,000 UNIT (25MCG) TABLET PO SCH (08:09)
[2019-10-14] MEDS: Loratadine 10 MG TABLET PO SCH (08:09)
[2019-10-14] MEDS: Budesonide/Formoterol 160/4.5 1 PUFF INH IH SCH ×2 (08:57→19:39)
[2019-10-14] MEDS: Sucralfate 1 GM TABLET PO SCH (20:43)
[2019-10-14] MEDS: ALPRAZolam 1 MG TABLET PO PRN (20:50)
[2019-10-15 01:47] LABS: Hematocrit 43.8 % (35.3-44.9); Hemoglobin 13.7 g/dL (11.5-15.4); Mean Corpuscular HGB Conc 31.3 g/dL (31.6-35.5); Mean Corpuscular Hemoglobin 27.8 pg (28.0-33.3); Mean Platelet Volume 9.8 fL (9.4-12.4); Platelet Count 197 K/mcL (140-400); Red Blood Count 4.92 M/mcL (3.82-4.97); Red Cell Distribution Width 13.7 % (11.5-14.5)
[2019-10-15 01:48] LABS: White Blood Count 8.3 K/mcL (4.3-11.1)
[2019-10-15] MEDS: Benzonatate 100 MG CAPSULE PO PRN ×2 (01:59→20:57)
[2019-10-15] MEDS: GuaiFENesin Liq 200 MG/10 ML UDC PO PRN ×2 (02:05→20:58)
[2019-10-15 02:23] LABS: Calcium 9.4 mg/dL (8.6-10.3); Potassium 4.5 mEq/L (3.5-5.1)
[2019-10-15] MEDS: Ipratropium/Albuterol Neb 3 ML IH SCH ×6 (03:38→23:16)
[2019-10-15] MEDS: methylPREDNISolone 125 MG/2 ML VIAL IVP SCH ×2 (05:35→16:38)
[2019-10-15] MEDS: *HR* Heparin 5,000 UNIT/ML VIAL SQ SCH ×2 (05:38→16:37)
[2019-10-15] MEDS: Budesonide/Formoterol 160/4.5 1 PUFF INH IH SCH ×2 (07:33→19:38)
[2019-10-15] MEDS: Furosemide 40 MG TABLET PO SCH (07:54)
[2019-10-15] MEDS: Cholecalciferol (D-3) 1,000 UNIT (25MCG) TABLET PO SCH (07:55)
[2019-10-15] MEDS: Folic Acid 1 MG TABLET PO SCH (07:56)
[2019-10-15] MEDS: Loratadine 10 MG TABLET PO SCH (07:56)
[2019-10-15] MEDS: Sennosides 8.6 MG TABLET PO SCH (07:56)
[2019-10-15] MEDS: levoFLOXacin 750 MG/150 ML 750 MG/150 ML BAG IVPB SCH (16:37)
[2019-10-15] MEDS: Sucralfate 1 GM TABLET PO SCH (20:56)
[2019-10-15] MEDS: ALPRAZolam 1 MG TABLET PO PRN (20:57)
[2019-10-16] MEDS: Ipratropium/Albuterol Neb 3 ML IH SCH ×2 (04:28→07:41)
[2019-10-16] MEDS: *HR* Heparin 5,000 UNIT/ML VIAL SQ SCH (05:14)
[2019-10-16] MEDS: methylPREDNISolone 125 MG/2 ML VIAL IVP SCH (05:14)
[2019-10-16 05:17] LABS: Hematocrit 42.9 % (35.3-44.9); Hemoglobin 13.3 g/dL (11.5-15.4); Mean Corpuscular Hemoglobin 27.6 pg (28.0-33.3); Mean Platelet Volume 9.8 fL (9.4-12.4); Platelet Count 206 K/mcL (140-400); Red Blood Count 4.82 M/mcL (3.82-4.97); Red Cell Distribution Width 13.9 % (11.5-14.5); White Blood Count 11.1 K/mcL (4.3-11.1)
[2019-10-16 05:31] LABS: Calcium 9.4 mg/dL (8.6-10.3); Potassium 4.1 mEq/L (3.5-5.1)
[2019-10-16] MEDS: Budesonide/Formoterol 160/4.5 1 PUFF INH IH SCH (07:41)
[2019-10-16 07:43] VITALS: BP 136/77
[2019-10-16] MEDS: Cholecalciferol (D-3) 1,000 UNIT (25MCG) TABLET PO SCH (09:11)
[2019-10-16] MEDS: Furosemide 40 MG TABLET PO SCH (09:12)
[2019-10-16] MEDS: Sennosides 8.6 MG TABLET PO SCH (09:12)
[2019-10-16] MEDS: Loratadine 10 MG TABLET PO SCH (09:12)
[2019-10-16] MEDS: Folic Acid 1 MG TABLET PO SCH (09:12)
[2019-10-16] MEDS: calcitrioL 0.25 MCG CAPSULE PO SCH (09:12)
== END 2019-10-16 11:27 | disposition home or self-care (01) ==
LOC: EMEROOARM 11:26 → 3BNU 11:26
PROVIDERS: ADMIT Internal Medicine; ATTEND Internal Medicine

== ENCOUNTER 2020-02-01 11:37 | Inpatient (IN) ==
[2020-02-01] MEDS ORDERED: Acetaminophen 325 MG TABLET PO ONE (11:55)
[2020-02-01] MEDS ORDERED: 0.9 % Sodium Chloride 1,000 ML IVC ONE (11:59)
[2020-02-01 12:20] LABS: Basophils # 0.1 K/mcL (0.0-0.2); Basophils % 0.3 %; Eosinophils % 0.1 %; Hematocrit 44.7 % (35.3-44.9); Hemoglobin 14.7 g/dL (11.5-15.4); Immature Granulocytes % 0.5 % (0-4); Lymphocytes # 0.8 K/mcL (0.6-4.6); Lymphocytes % 5.1 %; Mean Corpuscular HGB Conc 32.9 g/dL (31.6-35.5); Mean Corpuscular Hemoglobin 29.4 pg (28.0-33.3); Mean Corpuscular Volume 89.4 fL (83.0-100.0); Mean Platelet Volume 9.4 fL (9.4-12.4); Monocytes # 1.3 K/mcL (0.0-1.3); Monocytes % 7.8 %; Neutrophils # 14.3 K/mcL (1.6-8.9); Platelet Count 202 K/mcL (140-400); Red Cell Distribution Width 13.9 % (11.5-14.5); Segmented Neutrophils % 86.2 %; White Blood Count 16.6 K/mcL (4.3-11.1)
[2020-02-01 12:24] LABS: INR 1.1; Prothrombin Time 12.4 Seconds (9.4-12.1)
[2020-02-01 12:26] LABS: Activated Partial Thrombo Time 33.5 Seconds (26.0-36.0)
[2020-02-01 12:44] LABS: Amphetamine Screen,Urine Negative ng/mL (Cutoff=1000); Barbiturate Screen,Urine Negative ng/mL (Cutoff=200); Benzodiazepines Screen,Urine Positive ng/mL (Cutoff=200); Cannabinoid Screen,Urine Negative ng/mL (Cutoff = 50); Cocaine Screen,Urine Negative ng/mL (Cutoff= 300); Opiate Screen,Urine Negative ng/mL (Cutoff=300); Phencyclidine Screen,Urine Negative ng/mL (Cutoff=25)
[2020-02-01 12:47] LABS: Alanine Aminotransferase 14 Units/L (7-52); Albumin 4.1 g/dL (3.5-5.7); Albumin/Globulin Ratio 1.5 (1.1-2.2); Alkaline Phosphatase 108 Units/L (34-104); Aspartate Amino Transferase 20 Units/L (13-39); BUN/Creatinine Ratio 10 (6-26); Bilirubin,Direct 0.3 mg/dL (0.0-0.2); Bilirubin,Indirect 0.8 mg/dL (0.0-1.0); Bilirubin,Total 1.1 mg/dL (0.3-1.0); Blood Urea Nitrogen 15 mg/dL (8-23); Calcium 9.5 mg/dL (8.6-10.3); Carbon Dioxide 25 mEq/L (23-29); Chloride 100 mEq/L (98-107); Ethanol < 10 mg/dL (Less than 10); Globulin 2.7 g/dL (2.4-3.5); Glucose 116 mg/dL (70-105); Osmolality,Calculated 284 (280-300); Potassium 3.7 mEq/L (3.5-5.1); Sodium 136 mEq/L (136-145); Total Protein 6.8 g/dL (6.4-8.9); Troponin I < 0.03 ng/mL (< 0.04); eGFR For African Americans 39 (> 60); eGFR For Non-African Americans 33 (> 60)
[2020-02-01 13:40] LABS: Bacteria,Urine Many per hpf (None-Few); Bilirubin,Urine Negative (Negative); Blood,Urine Small (Negative); Clarity,Urine Turbid (Clear); Color,Urine Yellow (Yellow); Glucose,Urine (UA) Normal (Normal); Granular Casts,Urine Few per lpf (None Seen); Ketones,Urine Negative (Negative); Leukocyte Esterase,Urine Large (Negative); Mucus,Urine Few per lpf (None-Few); Nitrite,Urine Positive (Negative); PH,Urine 6.5 pH Units (5.0-8.0); Protein,Urine 100 mg/dL (Neg-Trace); Specific Gravity,Urine 1.015 (1.010-1.025); Squamous Epithelial Cell,Urine Few per hpf (None-Few); Urobilinogen,Urine Normal (Normal); WBC,Urine TNTC per hpf (0-3)
[2020-02-01] MEDS ORDERED: levoFLOXacin 500 MG/100 ML 500 MG/100 ML BAG IVPB ONE (14:11)
[2020-02-01] MEDS ORDERED: Ondansetron 4 MG/2 ML VIAL IVP PRN (14:54)
[2020-02-01] MEDS ORDERED: Naloxone 0.4 MG/ML INJ IVP PRN (14:54)
[2020-02-01] MEDS ORDERED: Ipratropium/Albuterol Neb 3 ML IH PRN (15:22)
[2020-02-01] MEDS: 0.9 % Sodium Chloride 1,000 ML IVC SCH (16:02)
[2020-02-01] MEDS: calcitrioL 0.25 MCG CAPSULE PO SCH (16:04)
[2020-02-01] MEDS: Acetaminophen 325 MG TABLET PO PRN (17:43)
[2020-02-01] MEDS: Famotidine 20 MG TABLET PO SCH (20:49)
[2020-02-01] MEDS: *HR* Heparin 5,000 UNIT/ML VIAL SQ SCH (20:49)
[2020-02-01] MEDS: Sucralfate 1 GM TABLET PO SCH (20:49)
[2020-02-01] MEDS: Budesonide/Formoterol 160/4.5 1 PUFF INH IH SCH (21:52)
[2020-02-02 02:19] LABS: Basophils # 0.1 K/mcL (0.0-0.2); Basophils % 0.4 %; Eosinophils % 0.1 %; Hematocrit 39.1 % (35.3-44.9); Lymphocytes # 0.8 K/mcL (0.6-4.6); Lymphocytes % 5.8 %; Mean Corpuscular HGB Conc 32.7 g/dL (31.6-35.5); Mean Corpuscular Hemoglobin 28.9 pg (28.0-33.3); Mean Corpuscular Volume 88.3 fL (83.0-100.0); Mean Platelet Volume 10.4 fL (9.4-12.4); Monocytes # 1.3 K/mcL (0.0-1.3); Monocytes % 9.2 %; Neutrophils # 11.9 K/mcL (1.6-8.9); Platelet Count 119 K/mcL (140-400); Red Blood Count 4.43 M/mcL (3.82-4.97); Segmented Neutrophils % 83.5 %; White Blood Count 14.2 K/mcL (4.3-11.1)
[2020-02-02 02:20] LABS: Hemoglobin 12.8 g/dL (11.5-15.4)
[2020-02-02 02:28] LABS: Calcium 8.2 mg/dL (8.6-10.3); Potassium 3.7 mEq/L (3.5-5.1)
[2020-02-02 04:11] LABS: Acinetobacter baumannii by PCR Not Detected (Not Detect); Candida albicans by PCR Not Detected (Not Detect); Candida glabrata by PCR Not Detected (Not Detect); Candida krusei by PCR Not Detected (Not Detect); Candida parapsilosis by PCR Not Detected (Not Detect); Candida tropicalis by PCR Not Detected (Not Detect); Enterobacter cloacae Cmplx PCR Not Detected (Not Detect); Enterobacteriaceae by PCR DETECTED (Not Detect); Enterococcus by PCR Not Detected (Not Detect); Escherichia coli by PCR DETECTED (Not Detect); Klebsiella oxytoca by PCR Not Detected (Not Detect); Klebsiella pneumoniae by PCR Not Detected (Not Detect); Proteus by PCR Not Detected (Not Detect); Pseudomonas aeruginosa by PCR Not Detected (Not Detect); Serratia marcescens by PCR Not Detected (Not Detect); Staphylococcus aureus by PCR Not Detected (Not Detect); Staphylococcus by PCR Not Detected (Not Detect); Streptococcus agalactiae(B)PCR Not Detected (Not Detect); Streptococcus by PCR Not Detected (Not Detect); Streptococcus pneumoniae PCR Not Detected (Not Detect); Streptococcus pyogenes (A) PCR Not Detected (Not Detect); blaKPC Carbapenem-Resist Gene Not Detected (Not Detect); mecA Methicillin-Resist Gene Not Detected (Not Detect); vanA/B Vancomycin-Resist Genes Not Detected (Not Detect)
[2020-02-02] MEDS: *HR* Heparin 5,000 UNIT/ML VIAL SQ SCH ×3 (05:27→20:44)
[2020-02-02] MEDS: 0.9 % Sodium Chloride 1,000 ML IVC SCH (05:29)
[2020-02-02] MEDS: Acetaminophen 325 MG TABLET PO PRN ×3 (05:32→18:41)
[2020-02-02] MEDS: Loratadine 10 MG TABLET PO SCH (07:40)
[2020-02-02] MEDS: Folic Acid 1 MG TABLET PO SCH (07:41)
[2020-02-02] MEDS: Cholecalciferol (D-3) 1,000 UNIT (25MCG) TABLET PO SCH (07:41)
[2020-02-02] MEDS: Budesonide/Formoterol 160/4.5 1 PUFF INH IH SCH ×2 (08:06→21:44)
[2020-02-02] MEDS: (Roflumilast [Daliresp] 500 MCG) PO SCH (08:08)
[2020-02-02] MEDS ORDERED: levoFLOXacin 750 MG/150 ML 750 MG/150 ML BAG IVPB SCH (09:00)
[2020-02-02] MEDS ORDERED: ALPRAZolam 1 MG TABLET PO PRN (09:10)
[2020-02-02] MEDS: Sucralfate 1 GM TABLET PO SCH (20:43)
[2020-02-02] MEDS: Famotidine 20 MG TABLET PO SCH (20:44)
[2020-02-03 02:38] LABS: Basophils % 0.2 %; Eosinophils % 0.4 %; Hematocrit 34.4 % (35.3-44.9); Immature Granulocytes % 0.4 % (0-4); Lymphocytes # 1.3 K/mcL (0.6-4.6); Lymphocytes % 13.1 %; Mean Corpuscular HGB Conc 32.6 g/dL (31.6-35.5); Mean Corpuscular Hemoglobin 28.9 pg (28.0-33.3); Mean Corpuscular Volume 88.7 fL (83.0-100.0); Mean Platelet Volume 9.9 fL (9.4-12.4); Monocytes # 1.2 K/mcL (0.0-1.3); Neutrophils # 7.1 K/mcL (1.6-8.9); Platelet Count 179 K/mcL (140-400); Red Blood Count 3.88 M/mcL (3.82-4.97); Red Cell Distribution Width 13.8 % (11.5-14.5); Segmented Neutrophils % 73.9 %; White Blood Count 9.7 K/mcL (4.3-11.1)
[2020-02-03 02:50] LABS: Hemoglobin 11.2 g/dL (11.5-15.4)
[2020-02-03 02:51] LABS: Calcium 8.9 mg/dL (8.6-10.3); Potassium 3.4 mEq/L (3.5-5.1)
[2020-02-03 03:16] LABS: Platelet Estimate Normal (Normal)
[2020-02-03] MEDS: *HR* Heparin 5,000 UNIT/ML VIAL SQ SCH ×3 (05:29→19:46)
[2020-02-03] MEDS: Budesonide/Formoterol 160/4.5 1 PUFF INH IH SCH ×2 (08:01→19:58)
[2020-02-03] MEDS: Folic Acid 1 MG TABLET PO SCH (08:07)
[2020-02-03] MEDS: Acetaminophen 325 MG TABLET PO PRN ×2 (08:07→15:15)
[2020-02-03] MEDS: Loratadine 10 MG TABLET PO SCH (08:07)
[2020-02-03] MEDS: Cholecalciferol (D-3) 1,000 UNIT (25MCG) TABLET PO SCH (08:07)
[2020-02-03] MEDS: (Roflumilast [Daliresp] 500 MCG) PO SCH (08:08)
[2020-02-03] MEDS: calcitrioL 0.25 MCG CAPSULE PO SCH (15:15)
[2020-02-03] MEDS: Ertapenem 1,000 MG in 0.9 % Sodium Chloride Mini Bag 100 ML IVPB SCH (17:24)
[2020-02-03] MEDS: Famotidine 20 MG TABLET PO SCH (19:46)
[2020-02-03] MEDS: Sucralfate 1 GM TABLET PO SCH (19:46)
[2020-02-04] MEDS: Acetaminophen 325 MG TABLET PO PRN ×3 (00:46→15:24)
[2020-02-04] MEDS ORDERED: Acetaminophen/Aspirin/Caffeine TABLET PO ONE (02:37)
[2020-02-04] MEDS: *HR* Heparin 5,000 UNIT/ML VIAL SQ SCH ×3 (05:13→20:25)
[2020-02-04 05:29] LABS: Hematocrit 33.3 % (35.3-44.9); Hemoglobin 11.1 g/dL (11.5-15.4); Mean Corpuscular HGB Conc 33.3 g/dL (31.6-35.5); Mean Corpuscular Hemoglobin 29.2 pg (28.0-33.3); Mean Corpuscular Volume 87.6 fL (83.0-100.0); Mean Platelet Volume 9.7 fL (9.4-12.4); Platelet Count 197 K/mcL (140-400); Red Cell Distribution Width 13.9 % (11.5-14.5); White Blood Count 8.2 K/mcL (4.3-11.1)
[2020-02-04 05:46] LABS: Calcium 9.1 mg/dL (8.6-10.3); Potassium 3.6 mEq/L (3.5-5.1)
[2020-02-04] MEDS: Budesonide/Formoterol 160/4.5 1 PUFF INH IH SCH ×2 (07:30→22:07)
[2020-02-04] MEDS: Cholecalciferol (D-3) 1,000 UNIT (25MCG) TABLET PO SCH (07:36)
[2020-02-04] MEDS: Folic Acid 1 MG TABLET PO SCH (07:37)
[2020-02-04] MEDS: (Roflumilast [Daliresp] 500 MCG) PO SCH (07:37)
[2020-02-04] MEDS: Loratadine 10 MG TABLET PO SCH (07:37)
[2020-02-04] MEDS ORDERED: levoFLOXacin 750 MG/150 ML 750 MG/150 ML BAG IVPB SCH (09:00)
[2020-02-04] MEDS ORDERED: Sennosides/Docusate Sodium TABLET PO PRN (12:59)
[2020-02-04] MEDS: Ertapenem 1,000 MG in 0.9 % Sodium Chloride Mini Bag 100 ML IVPB SCH (15:23)
[2020-02-04] MEDS: Sucralfate 1 GM TABLET PO SCH (20:25)
[2020-02-04] MEDS: Famotidine 20 MG TABLET PO SCH (20:25)
[2020-02-05] MEDS: *HR* Heparin 5,000 UNIT/ML VIAL SQ SCH (05:56)
[2020-02-05] MEDS: Acetaminophen 325 MG TABLET PO PRN ×2 (05:58→11:21)
[2020-02-05] MEDS: Budesonide/Formoterol 160/4.5 1 PUFF INH IH SCH (07:25)
[2020-02-05] MEDS: Folic Acid 1 MG TABLET PO SCH (08:10)
[2020-02-05] MEDS: Cholecalciferol (D-3) 1,000 UNIT (25MCG) TABLET PO SCH (08:10)
[2020-02-05] MEDS: Loratadine 10 MG TABLET PO SCH (08:10)
[2020-02-05] MEDS: (Roflumilast [Daliresp] 500 MCG) PO SCH (08:11)
[2020-02-05] MEDS ORDERED: Sulfamethoxazole/Trimeth DS 1 EACH TABLET PO SCH (09:00)
[2020-02-05 11:09] VITALS: BP 120/74
[2020-02-05] MEDS ORDERED: Ertapenem 1,000 MG in 0.9 % Sodium Chloride Mini Bag 100 ML IVPB ONE (12:00)
== END 2020-02-05 12:30 | disposition home or self-care (01) | DRG 871 ==
LOC: EMEROOARM 11:37 → 2ANU 11:37 → SUATTDRO 14:44 → 2ANU 15:31 → SUATTDRO 02-02 12:09
PROVIDERS: ADMIT Pharmacist; ATTEND Internal Medicine

== ENCOUNTER 2020-08-26 14:36 | Observation (INO) ==
[2020-08-26] MEDS ORDERED: Dexamethasone 4 MG/ML VIAL IVP ONE (14:56)
[2020-08-26 15:23] LABS: Prothrombin Time 12.1 Seconds (9.4-12.1)
[2020-08-26 15:25] LABS: Activated Partial Thrombo Time 31.1 Seconds (26.0-36.0)
[2020-08-26 15:31] LABS: Basophils # 0.1 K/mcL (0.0-0.2); Basophils % 0.3 %; Eosinophils # 0.2 K/mcL (0.0-0.6); Eosinophils % 1.6 %; Hematocrit 40.2 % (35.3-44.9); Hemoglobin 12.5 g/dL (11.5-15.4); Immature Granulocytes % 0.5 % (0-4); Lymphocytes # 1.4 K/mcL (0.6-4.6); Lymphocytes % 9.3 %; Mean Corpuscular HGB Conc 31.1 g/dL (31.6-35.5); Mean Corpuscular Hemoglobin 27.7 pg (28.0-33.3); Mean Corpuscular Volume 88.9 fL (83.0-100.0); Mean Platelet Volume 9.1 fL (9.4-12.4); Monocytes # 1.2 K/mcL (0.0-1.3); Monocytes % 7.9 %; Neutrophils # 11.9 K/mcL (1.6-8.9); Platelet Count 258 K/mcL (140-400); Red Blood Count 4.52 M/mcL (3.82-4.97); Red Cell Distribution Width 14.7 % (11.5-14.5); Segmented Neutrophils % 80.4 %; White Blood Count 14.8 K/mcL (4.3-11.1)
[2020-08-26 15:50] LABS: Alanine Aminotransferase 44 Units/L (7-52); Albumin 3.7 g/dL (3.5-5.7); Albumin/Globulin Ratio 1.2 (1.1-2.2); Alkaline Phosphatase 149 Units/L (34-104); Aspartate Amino Transferase 14 Units/L (13-39); BUN/Creatinine Ratio 10 (6-26); Bilirubin,Direct 0.1 mg/dL (0.0-0.2); Bilirubin,Indirect 0.6 mg/dL (0.0-1.0); Bilirubin,Total 0.7 mg/dL (0.3-1.0); Blood Urea Nitrogen 13 mg/dL (8-23); C-Reactive Protein 107 mg/L (Less than 10); Calcium 9.5 mg/dL (8.6-10.3); Carbon Dioxide 30 mEq/L (23-29); Chloride 99 mEq/L (98-107); Glucose 107 mg/dL (70-105); Lactate Dehydrogenase 154 Units/L (140-271); Magnesium 1.9 mg/dL (1.6-2.6); Osmolality,Calculated 287 (280-300); Phosphorous 2.8 mg/dL (2.7-4.5); Potassium 4.2 mEq/L (3.5-5.1); Sodium 138 mEq/L (136-145); Total Protein 6.7 g/dL (6.4-8.9); Troponin I < 0.03 ng/mL (< 0.04); eGFR For African Americans 50 (> 60); eGFR For Non-African Americans 41 (> 60)
[2020-08-26 15:51] LABS: VBG HCO3 31 mEq/L (21-27); VBG PCO2 51 mmHg (41-51); VBG PO2 42 mmHg (25-50)
[2020-08-26 15:54] LABS: Ferritin 68 ng/mL (10-120)
[2020-08-26 15:57] LABS: Adenovirus Not Detected (Not Detect); Bordetella Pertussis Not Detected (Not Detect); Chlamydophila pneumoniae Not Detected (Not Detect); Coronavirus 229E Not Detected (Not Detect); Coronavirus HKU1 Not Detected (Not Detect); Coronavirus NL63 Not Detected (Not Detect); Coronavirus OC43 Not Detected (Not Detect); Human Metapneumovirus Not Detected (Not Detect); Human Rhinovirus/Enterovirus Not Detected (Not Detect); Influenza A Subtype 2009 H1 Not Detected (Not Detect); Influenza B Not Detected (Not Detect); Mycoplasma pneumoniae Not Detected (Not Detect); Parainfluenza Virus 1 Not Detected (Not Detect); Parainfluenza Virus 2 Not Detected (Not Detect); Parainfluenza Virus 3 Not Detected (Not Detect); Parainfluenza Virus 4 Not Detected (Not Detect); Respiratory Syncytial Virus Not Detected (Not Detect); SARS-CoV-2 Not Detected (Not Detect)
[2020-08-26] MEDS ORDERED: Azithromycin 500 MG in 0.9 % Sodium Chloride 250 ML IVPB ONE (16:32)
[2020-08-26] MEDS ORDERED: Naloxone 0.4 MG/ML INJ IVP PRN (17:44)
[2020-08-26] MEDS ORDERED: Ondansetron 4 MG/2 ML VIAL IVP PRN (17:44)
[2020-08-26 17:45] LABS: Bacteria,Urine Few per hpf (None-Few); Bilirubin,Urine Negative (Negative); Blood,Urine Negative (Negative); Clarity,Urine Clear (Clear); Color,Urine Yellow (Yellow); Glucose,Urine (UA) Normal (Normal); Ketones,Urine Negative (Negative); Leukocyte Esterase,Urine Small (Negative); Mucus,Urine Few per lpf (None-Few); Nitrite,Urine Positive (Negative); PH,Urine 7.5 pH Units (5.0-8.0); Protein,Urine Trace mg/dL (Neg-Trace); Specific Gravity,Urine 1.019 (1.010-1.025); Squamous Epithelial Cell,Urine Few per hpf (None-Few); Urobilinogen,Urine Normal (Normal); WBC,Urine 15-30 per hpf (0-3)
[2020-08-26] MEDS: Ipratropium/Albuterol Neb 3 ML IH SCH ×2 (18:28→20:58)
[2020-08-26] MEDS: cefTRIAXone 1,000 MG in 0.9 % Sodium Chloride Mini Bag 100 ML IVPB SCH (18:39)
[2020-08-26] MEDS: 0.9 % Sodium Chloride 1,000 ML IVC SCH (18:39)
[2020-08-26] MEDS: Budesonide/Formoterol 160/4.5 1 PUFF INH IH SCH (20:58)
[2020-08-26] MEDS: *HR* Heparin 5,000 UNIT/ML VIAL SQ SCH (21:14)
[2020-08-26] MEDS: GuaiFENesin Liq 200 MG/10 ML UDC PO PRN (21:14)
[2020-08-26] MEDS ORDERED: calcitrioL 0.25 MCG CAPSULE PO SCH (21:30)
[2020-08-26] MEDS: ALPRAZolam 1 MG TABLET PO PRN (22:09)
[2020-08-27 03:34] LABS: Basophils % 0.2 %; Hematocrit 38.6 % (35.3-44.9); Hemoglobin 11.9 g/dL (11.5-15.4); Immature Granulocytes % 0.9 % (0-4); Lymphocytes # 0.9 K/mcL (0.6-4.6); Lymphocytes % 7.8 %; Mean Corpuscular HGB Conc 30.8 g/dL (31.6-35.5); Mean Corpuscular Hemoglobin 27.7 pg (28.0-33.3); Mean Corpuscular Volume 89.8 fL (83.0-100.0); Mean Platelet Volume 9.2 fL (9.4-12.4); Monocytes # 0.3 K/mcL (0.0-1.3); Monocytes % 2.3 %; Neutrophils # 10.4 K/mcL (1.6-8.9); Platelet Count 248 K/mcL (140-400); Red Cell Distribution Width 14.3 % (11.5-14.5); Segmented Neutrophils % 88.8 %; White Blood Count 11.7 K/mcL (4.3-11.1)
[2020-08-27] MEDS: Ipratropium/Albuterol Neb 3 ML IH SCH ×4 (03:46→22:35)
[2020-08-27 04:03] LABS: Calcium 9.3 mg/dL (8.6-10.3); Potassium 4.6 mEq/L (3.5-5.1)
[2020-08-27] MEDS: *HR* Heparin 5,000 UNIT/ML VIAL SQ SCH ×3 (06:16→21:52)
[2020-08-27] MEDS: 0.9 % Sodium Chloride 1,000 ML IVC SCH (06:26)
[2020-08-27] MEDS: Cholecalciferol (D-3) 1,000 UNIT (25MCG) TABLET PO SCH (07:49)
[2020-08-27] MEDS: Folic Acid 1 MG TABLET PO SCH (07:49)
[2020-08-27] MEDS: Loratadine 10 MG TABLET PO SCH (07:49)
[2020-08-27] MEDS: cefTRIAXone 1,000 MG in 0.9 % Sodium Chloride Mini Bag 100 ML IVPB SCH (07:50)
[2020-08-27] MEDS: Tiotropium 10 INH DOSE IH SCH (10:14)
[2020-08-27] MEDS: Budesonide/Formoterol 160/4.5 1 PUFF INH IH SCH ×2 (10:14→22:35)
[2020-08-27] MEDS: GuaiFENesin Liq 200 MG/10 ML UDC PO PRN ×2 (15:29→21:52)
[2020-08-27] MEDS: Azithromycin 500 MG in 0.9 % Sodium Chloride 250 ML IVPB SCH (15:29)
[2020-08-27] MEDS: Benzonatate 100 MG CAPSULE PO PRN (18:11)
[2020-08-27] MEDS: ALPRAZolam 1 MG TABLET PO PRN (21:51)
[2020-08-27] MEDS: Famotidine 20 MG TABLET PO SCH (21:51)
[2020-08-28 00:44] LABS: Basophils % 0.3 %; Eosinophils # 0.1 K/mcL (0.0-0.6); Eosinophils % 0.7 %; Hematocrit 33.4 % (35.3-44.9); Immature Granulocytes % 0.5 % (0-4); Lymphocytes # 1.7 K/mcL (0.6-4.6); Lymphocytes % 14.4 %; Mean Corpuscular HGB Conc 30.5 g/dL (31.6-35.5); Mean Corpuscular Hemoglobin 27.6 pg (28.0-33.3); Mean Corpuscular Volume 90.3 fL (83.0-100.0); Mean Platelet Volume 9.4 fL (9.4-12.4); Monocytes % 8.2 %; Neutrophils # 8.8 K/mcL (1.6-8.9); Platelet Count 210 K/mcL (140-400); Red Cell Distribution Width 14.6 % (11.5-14.5); Segmented Neutrophils % 75.9 %; White Blood Count 11.6 K/mcL (4.3-11.1)
[2020-08-28 00:45] LABS: Hemoglobin 10.2 g/dL (11.5-15.4)
[2020-08-28 01:01] LABS: Calcium 8.9 mg/dL (8.6-10.3); Potassium 3.6 mEq/L (3.5-5.1)
[2020-08-28] MEDS: Ipratropium/Albuterol Neb 3 ML IH SCH ×4 (04:07→21:59)
[2020-08-28] MEDS: *HR* Heparin 5,000 UNIT/ML VIAL SQ SCH ×3 (06:20→21:24)
[2020-08-28] MEDS: Folic Acid 1 MG TABLET PO SCH (08:23)
[2020-08-28] MEDS: Cholecalciferol (D-3) 1,000 UNIT (25MCG) TABLET PO SCH (08:23)
[2020-08-28] MEDS: GuaiFENesin Liq 200 MG/10 ML UDC PO PRN ×3 (08:23→21:24)
[2020-08-28] MEDS: cefTRIAXone 1,000 MG in 0.9 % Sodium Chloride Mini Bag 100 ML IVPB SCH (08:23)
[2020-08-28] MEDS: Loratadine 10 MG TABLET PO SCH (08:23)
[2020-08-28] MEDS: Tiotropium 10 INH DOSE IH SCH (10:37)
[2020-08-28] MEDS: Budesonide/Formoterol 160/4.5 1 PUFF INH IH SCH ×2 (10:37→21:59)
[2020-08-28] MEDS: Ertapenem 1,000 MG in 0.9 % Sodium Chloride Mini Bag 100 ML IVPB SCH (11:29)
[2020-08-28] MEDS: Benzonatate 100 MG CAPSULE PO PRN ×2 (11:29→16:37)
[2020-08-28] MEDS: Azithromycin 500 MG in 0.9 % Sodium Chloride 250 ML IVPB SCH (16:21)
[2020-08-28] MEDS: ALPRAZolam 1 MG TABLET PO PRN (21:23)
[2020-08-28] MEDS: Famotidine 20 MG TABLET PO SCH (21:23)
[2020-08-29] MEDS: Ipratropium/Albuterol Neb 3 ML IH SCH ×2 (03:54→10:04)
[2020-08-29 05:17] LABS: Basophils % 0.6 %; Eosinophils # 0.2 K/mcL (0.0-0.6); Hematocrit 33.3 % (35.3-44.9); Hemoglobin 10.2 g/dL (11.5-15.4); Immature Granulocytes % 0.7 % (0-4); Lymphocytes # 1.9 K/mcL (0.6-4.6); Lymphocytes % 25.7 %; Mean Corpuscular HGB Conc 30.6 g/dL (31.6-35.5); Mean Corpuscular Hemoglobin 27.6 pg (28.0-33.3); Mean Corpuscular Volume 90.2 fL (83.0-100.0); Mean Platelet Volume 9.4 fL (9.4-12.4); Monocytes # 0.5 K/mcL (0.0-1.3); Monocytes % 6.6 %; Neutrophils # 4.6 K/mcL (1.6-8.9); Platelet Count 199 K/mcL (140-400); Red Blood Count 3.69 M/mcL (3.82-4.97); Red Cell Distribution Width 14.8 % (11.5-14.5); Segmented Neutrophils % 63.4 %; White Blood Count 7.2 K/mcL (4.3-11.1)
[2020-08-29 05:32] LABS: BUN/Creatinine Ratio 13 (6-26); Blood Urea Nitrogen 13 mg/dL (8-23); Calcium 9.1 mg/dL (8.6-10.3); Carbon Dioxide 28 mEq/L (23-29); Chloride 106 mEq/L (98-107); Glucose 114 mg/dL (70-105); Osmolality,Calculated 295 (280-300); Potassium 4.2 mEq/L (3.5-5.1); Sodium 142 mEq/L (136-145); eGFR For African Americans > 60 (> 60); eGFR For Non-African Americans 52 (> 60)
[2020-08-29] MEDS: *HR* Heparin 5,000 UNIT/ML VIAL SQ SCH (06:31)
[2020-08-29 08:16] VITALS: BP 148/76
[2020-08-29] MEDS: Folic Acid 1 MG TABLET PO SCH (08:33)
[2020-08-29] MEDS: Cholecalciferol (D-3) 1,000 UNIT (25MCG) TABLET PO SCH (08:33)
[2020-08-29] MEDS: Loratadine 10 MG TABLET PO SCH (08:34)
[2020-08-29] MEDS: Ertapenem 1,000 MG in 0.9 % Sodium Chloride Mini Bag 100 ML IVPB SCH (08:35)
[2020-08-29] MEDS: GuaiFENesin Liq 200 MG/10 ML UDC PO PRN (08:45)
[2020-08-29] MEDS ORDERED: Fluticasone Propionate Nasal 50 MCG/SPRAY BOTTLE NS SCH (09:00)
[2020-08-29] MEDS: Tiotropium 10 INH DOSE IH SCH (10:03)
[2020-08-29] MEDS: Budesonide/Formoterol 160/4.5 1 PUFF INH IH SCH (10:04)
[2020-08-29] MEDS ORDERED: FLU Vac QV 20-21 (6Month+)/PF 0.5 ML SYRINGE IM ONE (11:34)
[2020-08-29] MEDS ORDERED: Famotidine 20 MG TABLET PO SCH (21:00)
== END 2020-08-29 12:06 | disposition home or self-care (01) ==
LOC: EMEROOARM 14:36 → 2ANU 14:36 → SUATTDRO 17:13 → 2ANU 17:56
PROVIDERS: ADMIT Internal Medicine; ATTEND Family Medicine